=== PATIENT | female | born 1940 | race Caucasian/White ===

== ENCOUNTER 2021-03-13 21:09 | Inpatient (IN) | payer MEDICARE, OTHER, SELFPAY ==
--- NOTE | 2021-03-13 21:26 | XRR_ITS ---
PROCEDURE INFORMATION: Exam: XR Chest Exam date and time: 03/13/2021 9:26 PM Age: 80 years old Clinical indication: Other: Syncope TECHNIQUE: Imaging protocol: XR of the chest. Views: 1 view. COMPARISON: CR Chest 1 [place] [id number] 06/13/2018 7:35 AM FINDINGS: Lungs: Unremarkable. No consolidation. Pleural spaces: Unremarkable. No pleural effusion. No pneumothorax. Heart/Mediastinum: Unremarkable. No cardiomegaly. Vasculature: The aorta is tortuous and mildly calcified. Bones/joints: Unremarkable. XR/XR chest 1V portable [id number] IMPRESSION: No acute cardiopulmonary abnormality.
--- NOTE | 2021-03-13 21:26 | ECG_ITS ---
[facility] Test Date: 2021-03-13 Pat Name: Sandy Jordan Department: Room: Gender: Female Wrapping Clerk: : 1940 Requested By: Magan Lora Order Number: [id number] Kings MD: Thony Amor M.D. Measurements Intervals [place] Rate: 105 P: 258 WA: 88 QRS: 6 QRSD: 107 T: -76 QT: 356 QTc: 471 Interpretive Statements JUNCTIONAL TACHYCARDIA ST DEVIATION AND MODERATE T-WAVE ABNORMALITY, CONSIDER ANTERIOR ISCHEMIA [-0.1+ mV T-WAVE IN V3/V4] ST DEVIATION AND MODERATE T-WAVE ABNORMALITY, CONSIDER INFERIOR ISCHEMIA [-0.1+ mV T-WAVE IN II/aVF] Compared to ECG 06/13/2018 02:02:35 Junctional tachycardia now present Sinus rhythm no longer present Myocardial infarct finding no longer present T-wave abnormality still present Possible ischemia still present Electronically Signed On 03-15-2021 7:39:02 MAINTENANCE REPRESENTATIVE by Thony Amor M.D. [id number]
--- NOTE | 2021-03-13 21:26 | CTR_ITS ---
PROCEDURE INFORMATION: Exam: CT Head Without Contrast Exam date and time: 03/13/2021 9:26 PM Age: 80 years old Clinical indication: Syncope and collapse TECHNIQUE: Imaging protocol: Computed tomography of the head without contrast. Radiation optimization: All CT scans at this facility use at least one of these dose optimization techniques: automated exposure control; mA and/or kV adjustment per patient size (includes targeted exams where dose is matched to clinical indication); or iterative reconstruction. COMPARISON: [place] [facility] [place] [id number] 06/11/2018 8:53 AM RADIATION DOSE METRICS: Total DLP (mGy-cm): 855.23 FINDINGS: Brain: Age appropriate atrophy and small vessel ischemic change. No evidence of intracranial hemorrhage, mass effect, midline shift or extra-axial fluid collections. Midline structures are normal. Garces-white matter differentiation is normal. Cerebral ventricles: No ventriculomegaly. Paranasal sinuses: Visualized sinuses are unremarkable. No fluid levels. Mastoid air cells: Visualized mastoid air cells are well aerated. Vasculature: Carotid atherosclerotic calcification. Bones/joints: Unremarkable. No acute fracture. Soft tissues: There is mild posterior scalp swelling. CT/CT head wo con* [id number] IMPRESSION: No acute intracranial injury.
[2021-03-13 21:32] VITALS: BP 168/115; PULSE 100; RESP 16; TEMP 36.6; O2SAT 97; BMI 26.6
--- NOTE | 2021-03-13 22:06 | W.ED.SYNCOPE ---
HPI - Syncope General: Chief Complaint: Syncope Stated Complaint: SYNCOPE Time Seen by Provider: 03/13/21 21:18 Source: patient and EMS Mode of arrival: EMS Limitations: no limitations History of Present Illness: HPI narrative: 80-year-old female who is here with EMS she lives home alone family found her on the floor where she had fell unknown how long she had been down she states that she has been feeling increasingly weak and dehydrated has been having a hard time walking at home. Patient awake and alert able answer all my questions she is unsure if she hit her head she denies any pain from the fall. She had no fever denies any vomiting diarrhea denies any worsening proving factors. Associated symptoms: Deny abdominal pain, headache(s) or nausea Review of Systems Const: Reports: fatigue Eyes: Denies: blurry vision or eye discomfort ENMT: Denies: throat pain or dental pain Card: Reports: palpitations and syncope Resp: Denies: dyspnea GI: Denies: abdominal pain, nausea, vomiting or diarrhea : Denies: dysuria Musc: Reports: muscle weakness Skin/Breast: Denies: rash Neuro: Denies: headache(s) Psych: Denies: depression Galo/Lymph: Denies: easy bruising All/Imm: Denies: urticaria Physical Exam Const: COMMON NORMALS: no acute distress, patient oriented x3 and healthy appearing HENMT: COMMON NORMALS: normocephalic and atraumatic HEAD & SCALP: normocephalic and atraumatic Eye: COMMON NORMALS: Equal, round and reactive pupils present and EOMs intact bilaterally PUPIL: Yes Equal, round and reactive pupils present Neck/C-Spine: COMMON NORMALS: full ROM and supple Chest: COMMONS NORMALS: normal inspection of the chest and normal palpation of entire chest wall Resp: COMMON NORMALS: normal respiratory effort, No retractions, No use of accessory muscles and clear to auscultation bilaterally AUSCULTATION: clear to auscultation bilaterally Cardio: COMMON NORMALS: regular rhythm and No murmurs present (Cardio) RATE: tachycardic RHYTHM: regular rhythm GI: COMMON NORMALS: Normal to inspection, nondistended, normoactive bowel sounds present, Soft to palpation, non-tender and no masses PALPATION: Yes Soft to palpation Extremity: COMMON NORMALS: normal to inspection and full ROM Neuro: COMMON NORMALS: patient oriented x3, moves all extremities and no focal motor deficits Psych: COMMON NORMALS: mental status grossly normal, Normal thought process present and cooperative THOUGHT PROCESS: Normal thought process present Skin: COMMON NORMALS: no rashes or lesions noted and no wounds GENERAL SKIN EXAM: no rashes or lesions noted Course Vital Signs: Vital signs: Vital Signs Temperature 97.9 F 03/13/21 21:32 Pulse Rate 89 03/14/21 00:31 Respiratory Rate 16 03/13/21 21:32 Blood Pressure 195/130 03/14/21 00:31 Pulse Oximetry 99 03/14/21 00:31 MDM - Syncope MDM Narrative: Medical decision making narrative: Patient presents here with syncopal event patient is found here to be dehydrated likely causing her anion gap she also has acute cystitis likely causing her white count lactate here is normal blood pressure here has been normal as well she has no signs of septic shock will start on antibiotics I spoke to the hospitalist and will admit. Patient CT head is normal no signs of any major head injuries. She has no neck pain. Lab Data: Labs: Lab Results 03/13/21 03/13/21 03/13/21 21:13 21:13 21:13 WBC 17.6 10^3/uL H 10 ^3/uL (4.0-10.0) RBC 4.53 10^6/uL 10^6 /uL (4.1-5.3) Hgb 13.4 g/dL g/dL (11.5-15.3) Hct 40.2 % % (37.0-47.0) MCV 88.7 fl fl (81-99) MCH 29.6 pg pg (28.0-34.0) MCHC 33.3 g/dL g/dL (30.0-36.0) RDW 14.2 % % (12.1-15.1) Plt Count 303 10^3/cmm 10^3 /cmm (130-400) MPV 13.3 fL H fL (7.4-10.4) Neut % (Auto) 82.1 % % Lymph % (Auto) 13.5 % % [place] % (Auto) 3.2 % % Eos % (Auto) 0.1 % % Baso % (Auto) 0.6 % % Neut # (Auto) 14.42 10^3/uL H 1 0^3/uL (1.8-7.7) Lymph # (Auto) 2.4 10^3/uL 10^3/ uL (0.8-4.8) [place] # (Auto) 0.6 10^3/uL 10^3/ uL (0.2-0.9) Eos # (Auto) 0.0 10^3/uL 10^3/ uL (0.0-0.8) Baso # (Auto) 0.1 10^3/uL 10^3/ uL (0.0-0.1) Nucleated RBC % (a uto) 0 % % Nucleated RBCs # 0.0 /100WBC /100W BC PT INR Specimen Type Sample Site ABG pH ABG pCO2 ABG pO2 ABG HCO3 ABG Base Excess Elvin Test Hematocrit O2 Delivery Device Film Drying Machine Operator ID Sodium 140 mmol/L mmol/L (136-145) Potassium 3.5 mmol/L mmol/L (3.5-5.1) Chloride 101 mmol/L mmol/L (98-107) Carbon Dioxide 14 mmol/L L mmol/ L (22-29) Anion Gap 28.5 H (5-19) BUN 15 mg/dL mg/dL (8-23) Creatinine 0.9 mg/dL mg/dL (0.5-0.9) GFR Calculation Not Reportable Glucose 67 mg/dL mg/dL (65-115) Calculated Osmolal ity 289 mOsm/kg mOsm/ kg (285-295) Lactate Calcium 9.6 mg/dL mg/dL (8.5-10.5) Total Bilirubin 0.8 mg/dL mg/dL (0.15-1.2) AST 23 U/L U/L (0-32) ALT 12 U/L U/L (0-33) Alkaline Phosphata se 80 IU/L IU/L (35-105) Creatine Kinase 142 U/L U/L (26-192) Troponin T Baselin e 28 ng/L H ng/L (0-10) Troponin T 120 Min [place]ak Delta Troponin T Total Protein 7.0 g/dL g/dL (6.6-8.7) Albumin 4.7 g/dL g/dL (3.5-5.2) Globulin 2.3 g/dL g/dL (1.3-4.6) Urine Color Urine Appearance Urine pH Ur Specific Gravit y Urine Protein Urine Glucose (UA) Urine Ketones Urine Blood Urine Nitrate Urine Bilirubin Prot Sulfosalicyli c Acd Urine Urobilinogen Ur Leukocyte Anna ase Urine RBC Urine WBC Ur Squamous Epith Cells Amorphous Sediment Urine Bacteria 03/13/21 03/13/21 03/13/21 23:06 23:06 23:37 WBC RBC Hgb Hct MCV MCH MCHC RDW Plt Count MPV Neut % (Auto) Lymph % (Auto) [place] % (Auto) Eos % (Auto) Baso % (Auto) Neut # (Auto) Lymph # (Auto) [place] # (Auto) Eos # (Auto) Baso # (Auto) Nucleated RBC % (a uto) Nucleated RBCs # PT 15.70 SECONDS H S ECONDS (12.1-14.9) INR 1.22 H (0.8-1.2) Specimen Type Sample Site ABG pH ABG pCO2 ABG pO2 ABG HCO3 ABG Base Excess Elvin Test Hematocrit O2 Delivery Device Film Drying Machine Operator ID Sodium Potassium Chloride Carbon Dioxide Anion Gap BUN Creatinine GFR Calculation Glucose Calculated Osmolal ity Lactate Calcium Total Bilirubin AST ALT Alkaline Phosphata se Creatine Kinase Troponin T Baselin e Troponin T 120 Min [place] 36.23 ng/L H ng/L (0-10) Delta Troponin T 8.23 ABS# ABS# (0-10) Total Protein Albumin Globulin Urine Color Yellow (Yellow) Urine Appearance Cloudy (CLEAR) Urine pH 9 H (5-7) Ur Specific Gravit y 1.015 (1.005-1.030) Urine Protein 1+ H (Negative) Urine Glucose (UA) Norm (Normal) Urine Ketones 2+ H (Negative) Urine Blood 2+ H (Negative) Urine Nitrate Positive H (Negative) Urine Bilirubin Neg (Negative) Prot Sulfosalicyli c Acd Positive (Negative) Urine Urobilinogen Norm mg/dL mg/dL (Negative) Ur Leukocyte Anna ase 2+ H (Negative) Urine RBC 0-4 /hpf H /hpf (0-2) Urine WBC >100 /hpf H /hpf (0-5) Ur Squamous Epith Cells 0-4 /hpf H /hpf (0-5) Amorphous Sediment 3+ /hpf /hpf Urine Bacteria 4+ /hpf H /hpf (NONE) 03/13/21 03/14/21 23:41 00:45 WBC RBC Hgb Hct MCV MCH MCHC RDW Plt Count MPV Neut % (Auto) Lymph % (Auto) [place] % (Auto) Eos % (Auto) Baso % (Auto) Neut # (Auto) Lymph # (Auto) [place] # (Auto) Eos # (Auto) Baso # (Auto) Nucleated RBC % (a uto) Nucleated RBCs # PT INR Specimen Type Arterial Sample Site Radial, left ABG pH 7.53 H (7.35-7.45) ABG pCO2 19.7 mmHg L* mmHg (35-45) ABG pO2 97.9 mmHg mmHg (80.0-100.0) ABG HCO3 16.2 mmol/L L mmo l/L (22-26) ABG Base Excess -4.5 mmol/L L mmo l/L (-2.0-2.0) Elvin Test Pos Hematocrit 37.4 % % (37-47) O2 Delivery Device Room air Film Drying Machine Operator ID Buttr Sodium Potassium Chloride Carbon Dioxide Anion Gap BUN Creatinine GFR Calculation Glucose Calculated Osmolal ity Lactate 1.3 mmol/L mmol/L (0.5-2.2) Calcium Total Bilirubin AST ALT Alkaline Phosphata se Creatine Kinase Troponin T Baselin e Troponin T 120 Min [place] Delta Troponin T Total Protein Albumin Globulin Urine Color Urine Appearance Urine pH Ur Specific Gravit y Urine Protein Urine Glucose (UA) Urine Ketones Urine Blood Urine Nitrate Urine Bilirubin Prot Sulfosalicyli c Acd Urine Urobilinogen Ur Leukocyte Anna ase Urine RBC Urine WBC Ur Squamous Epith Cells Amorphous Sediment Urine Bacteria Imaging Data^: CT Head: Radiologist's impression: [address] [address] [address] Scan Report Signed Patient: Sandy Jordan Unit #: [id number] : 1940 Age/Sex: 80 / F ADM Date: 03/13/21 Loc: ER Room/Bed: Attending Dr: Ordering Provider/Ordering MD: Magan Lora MD Date of Service: 03/13/21 Procedure(s): CT head wo con* [id number] Accession Number(s): [id number] Report Number: [id number] PROCEDURE INFORMATION: Exam: CT Head Without Contrast Exam date and time: 03/13/2021 9:26 PM Age: 80 years old Clinical indication: Syncope and collapse TECHNIQUE: Imaging protocol: Computed tomography of the head without contrast. Radiation optimization: All CT scans at this facility use at least one of these dose optimization techniques: automated exposure control; mA and/or kV adjustment per patient size (includes targeted exams where dose is matched to clinical indication); or iterative reconstruction. COMPARISON: [place] [id number] 06/11/2018 8:53 AM RADIATION DOSE METRICS: Total DLP (mGy-cm): 855.23 FINDINGS: Brain: Age appropriate atrophy and small vessel ischemic change. No evidence of intracranial hemorrhage, mass effect, midline shift or extra-axial fluid collections. Midline structures are normal. Garces-white matter differentiation is normal. Cerebral ventricles: No ventriculomegaly. Paranasal sinuses: Visualized sinuses are unremarkable. No fluid levels. Mastoid air cells: Visualized mastoid air cells are well aerated. Vasculature: Carotid atherosclerotic calcification. Bones/joints: Unremarkable. No acute fracture. Soft tissues: There is mild posterior scalp swelling. CT/CT head wo con* [id number] IMPRESSION: No acute intracranial injury. Dictated By: Leonardo Jewell MD Signed By: Leonardo Jewell MD Signed Date/Time: 03/13/212210 DD/ 25 CXR: Attestation: I personally reviewed and interpreted this imaging study as follows: Radiologist's impression: [address] [address] XRay Report Signed Patient: Sandy Jordan Unit #: [id number] : 1940 Age/Sex: 80 / F ADM Date: 03/13/21 Loc: ER Room/Bed: Attending Dr: Ordering Provider/Ordering MD: Magan Lora MD Date of Service: 03/13/21 Procedure(s): XR chest 1V portable [id number] Accession Number(s): [id number] Report Number: [id number] PROCEDURE INFORMATION: Exam: XR Chest Exam date and time: 03/13/2021 9:26 PM Age: 80 years old Clinical indication: Other: Syncope TECHNIQUE: Imaging protocol: XR of the chest. Views: 1 view. COMPARISON: CR Chest 1 [place] [id number] 06/13/2018 7:35 AM FINDINGS: Lungs: Unremarkable. No consolidation. Pleural spaces: Unremarkable. No pleural effusion. No pneumothorax. Heart/Mediastinum: Unremarkable. No cardiomegaly. Vasculature: The aorta is tortuous and mildly calcified. Bones/joints: Unremarkable. XR/XR chest 1V portable [id number] IMPRESSION: No acute cardiopulmonary abnormality. Dictated By: Leonardo Jweell MD Signed By: Leonardo Jewell MD Signed Date/Time: 03/13/212212 DD/ 25 EKG Data^: EKG 1: Attestation: I personally reviewed and interpreted this EKG as follows: EKG interpretation date: 03/13/21 EKG interpretation time: 21:41 Interpretation: junctional tach hr [address] elevation slight depression v3-v5 qrs 107 qtc 417 Coding Level of Care Code ED Blood And Plasma Laboratory Assistant for Chg Fwd Exam Comprehensive
[2021-03-13 23:14] LABS: Basophils # 0.1 10^3/uL (0.0-0.1); Basophils % 0.6 %; Eosinophils % 0.1 %; Hematocrit 40.2 % (37.0-47.0); Hemoglobin 13.4 g/dL (11.5-15.3); Lymphocytes # 2.4 10^3/uL (0.8-4.8); Lymphocytes % 13.5 %; Mean Corpuscular HGB Conc 33.3 g/dL (30.0-36.0); Mean Corpuscular Hemoglobin 29.6 pg (28.0-34.0); Mean Corpuscular Volume 88.7 fl (81-99); Mean Platelet Volume 13.3 fL (7.4-10.4); Monocytes # 0.6 10^3/uL (0.2-0.9); Monocytes % 3.2 %; Neutrophils # 14.42 10^3/uL (1.8-7.7); Neutrophils % 82.1 %; Nucleated Red Blood Cells % 0 %; Platelet Count 303 10^3/cmm (130-400); Red Blood Count 4.53 10^6/uL (4.1-5.3); Red Cell Distribution Width 14.2 % (12.1-15.1); White Blood Count 17.6 10^3/uL (4.0-10.0)
[2021-03-13 23:20] LABS: Troponin(5th) Baseline 28 ng/L (0-10)
[2021-03-13 23:22] LABS: Alanine Aminotransferase 12 U/L (0-33); Albumin Level 4.7 g/dL (3.5-5.2); Alkaline Phosphatase 80 IU/L (35-105); Anion Gap 28.5 (5-19); Aspartate Amino Transferase 23 U/L (0-32); Blood Urea Nitrogen 15 mg/dL (8-23); Calcium 9.6 mg/dL (8.5-10.5); Carbon Dioxide 14 mmol/L (22-29); Chloride 101 mmol/L (98-107); Creatine Phosphokinase 142 U/L (26-192); Globulin 2.3 g/dL (1.3-4.6); Glucose 67 mg/dL (65-115); Osmolality Calculated 289 mOsm/kg (285-295); Potassium 3.5 mmol/L (3.5-5.1); Sodium 140 mmol/L (136-145); Total Bilirubin 0.8 mg/dL (0.15-1.2)
[2021-03-13 23:31] LABS: Slide Review Slide Review Perform
[2021-03-13 23:52] LABS: INR 1.22 (0.8-1.2)
[2021-03-13 23:57] LABS: Troponin 5 2HR 36.23 ng/L (0-10); Troponin 5 2HR Delta 8.23 ABS# (0-10)
[2021-03-13 23:58] LABS: Add Urine Culture? Yes; Add Urine Microscopic? YES; Amorphous Sediment Urine 3+ /hpf; Bacteria Urine 4+ /hpf; Bilirubin Urine Neg (Negative); Blood Urine 2+ (Negative); Glucose Urine UA Norm (Normal); Ketones Urine 2+ (Negative); Leukocyte Esterase Urine 2+ (Negative); Nitrate Urine Positive (Negative); Protein Urine 1+ (Negative); RBC Urine 0-4 /hpf (0-2); Specific Gravity, Urine 1.015 (1.005-1.030); Squamous Epithelial Cell Urine 0-4 /hpf (0-5); Sulfosalicylic Acid Urine Positive (Negative); Urine Appearance Cloudy (CLEAR); Urine Color Yellow (Yellow); Urobilinogen Urine Norm (Negative); WBC Urine >100 /hpf (0-5); pH Urine 9 (5-7)
[2021-03-14] VITALS (12 sets, daily range): BP systolic 143–197; BP diastolic 73–130; PULSE 69–102; RESP 18; TEMP 36.3–36.9; O2SAT 93–100
[2021-03-14 00:02] LABS: Lactate (Lactic Acid level) 1.3 mmol/L (0.5-2.2)
[2021-03-14] MEDS: sodium chloride 0.9% 1,000 ML 999 ML IV (00:28)
[2021-03-14] MEDS: cefTRIAXone 1,000 MG in sodium chloride 0.9% (plus) 50 ML 100 MG IV ×2 (00:28→07:50)
[2021-03-14 01:00] LABS: ABG PH Result 7.53 (7.35-7.45); Arterial Blood Gas Hematocrit 37.4 % (37-47); Base Excess ABG -4.5 mmol/L (-2.0-2.0); Blood Gas Allen Test Pos; Blood Gas Sample Site Radial, left; Blood Gas Sample Type Arterial; HCO3 ABG 16.2 mmol/L (22-26); Oxygen Device ROOM AIR; PO2 ABG 97.9 mmHg (80.0-100.0)
[2021-03-14 01:02] LABS: ABG PCO2 19.7 mmHg (35-45)
[2021-03-14] MEDS: LORazepam 2 mg/mL INJ 1 mL 0.5 MG IVP (03:20)
--- NOTE | 2021-03-14 03:26 | ECG_ITS ---
[facility] Test Date: 2021-03-14 Pat Name: Sandy Jordan Department: Room: 250 Gender: Female Field Manager: : 1940 Requested By: Magan Lora Order Number: [id number] Kings MD: Thony Amor M.D. Measurements Intervals [place] Rate: 89 P: MS: QRS: -12 QRSD: 100 T: -83 QT: 377 QTc: 461 Interpretive Statements ATRIAL FIBRILLATION ST DEVIATION AND MODERATE T-WAVE ABNORMALITY, CONSIDER ANTEROLATERAL ISCHEMIA [-0.1+ mV T-WAVE IN V3-V6] ST DEVIATION AND MODERATE T-WAVE ABNORMALITY, CONSIDER INFERIOR ISCHEMIA [-0.1+ mV T-WAVE IN II/aVF] Compared to ECG 03/13/2021 21:41:55 Junctional tachycardia no longer present T-wave abnormality still present Possible ischemia still present Electronically Signed On 03-15-2021 7:46:22 TACK CUTTER by Thony Amor M.D. [id number]
--- NOTE | 2021-03-14 04:16 | PM.HP ---
Providers/Chief Complaint Admitting Physician: Deneen Cerna MD Primary Care Provider: Lana Rodríguez DO Chief Complaint: SYNCOPE History of Present Illness With complaint ofGlshantanu Jordan is a 80 year old female who presented to the emergency room feeling well. It is a little challenging to get specific details but from what I can gather she has been having diarrhea for several days. She has been getting progressively weaker. Family found her on the floor today. It is not clear if she passed out and had loss of consciousness or hit her head. Unclear exactly how long she had been on the floor. She denies any vomiting but has been nauseated. No report of any fevers. She is not had any cough or upper respiratory symptoms until this evening in the ER she has developed a little tickle in her throat. No known sick contacts. Review of Systems General: Reports: 10 or more systems reviewed and unremarkable except in HPI and below and ROS unobtainable due to mental status (Not reliable not reliable) Const: Reports: fatigue; Denies: fever(s) or chills Eyes: Denies: change in vision ENMT: Denies: throat pain or nasal congestion Card: Denies: chest pain Resp: Reports: non-productive cough (Started in the emergency room from tickle in throat); Denies: dyspnea GI: Reports: nausea, diarrhea and GI cramping; Denies: hematochezia or melena : Reports: urinary frequency and urinary incontinence Musc: Denies: neck pain, back pain or extremity pain Skin/Breast: Denies: rash or pruritus Neuro: Reports: weakness in extremities, difficulty walking and frequent falls Psych: Reports: memory loss; Denies: depression Galo/Lymph: Denies: easy bruising or easy bleeding Medications/Allergies Home Medications Medication Instructions Recorded Confirmed Last Taken Type diphenhydramine HCl 25 mg PO 03/14/21 Unknown History diphenoxylate-atropine 1 tab PO QID PRN 03/14/21 03/14/21 Unknown History donepezil 10 mg PO DAILY 03/14/21 03/14/21 Unknown History loperamide [Imodium A-D] 2 mg PO Q4H PRN 03/14/21 03/14/21 Unknown History memantine 5 mg PO BID 03/14/21 03/14/21 Unknown History metoprolol tartrate 25 mg PO BID@03/14/21 03/14/21 Unknown History oxybutynin chloride 5 mg PO TID 03/14/21 03/14/21 Unknown History pantoprazole 40 mg PO DAILY 03/14/21 03/14/21 Unknown History sertraline 100 mg PO DAILY 03/14/21 03/14/21 Unknown History trazodone 50 mg PO BEDTIME 03/14/21 03/14/21 Unknown History Allergies Allergy/AdvReac Type Severity Reaction Status Date / Time No Known Allergies Allergy Verified 03/14/21 05:05 PFSH Acute PFSH: Medical History (Updated 03/14/21 @ 05:10 by Deneen Cerna MD) Chronic back pain Dementia Depression GERD (gastroesophageal reflux disease) History of benzodiazepine use History of drug overdose History of GI bleed History of narcotic use History of suicidal ideation Hypertension Osteoarthritis Polymyalgia rheumatica Surgical History (Updated 03/14/21 @ 04:30 by Deneen Cerna MD) History of abdominal surgery for gastric or duodenal ulcer History of breast biopsy History of hysterectomy Family History (Updated 03/14/21 @ 04:36 by Deneen Cerna MD) Other Cancer Social History (Updated 03/14/21 @ 04:37 by Deneen Cerna MD) Smoking and tobacco status: never smoked Alcohol intake: never Substance/Drug Use: never Lives independently: No Household members: family Female Reproductive History: : 3 Para: 3 Vitals/I&O/Wt Last Vital Signs Temp 97.9 F 03/13/21 21:32 Pulse 94 03/14/21 04:00 Resp 16 03/13/21 21:32 BP 146/110 03/14/21 04:00 Pulse Ox 96 03/14/21 04:00 03/13/21 03/13/21 03/14/21 14:59 22:59 06:59 Intake Total 1050 / 1050 Balance 1050 / 1050 Weight last 48 hrs Weight 81.647 kg Physical Exam Narrative: EXAM NARRATIVE: Constitutional: But able to provide some details of history, looks unwell HEENT: Normocephalic, extraocular movements intact, dry mucous membranes Neck: Supple Respiratory: Clear to auscultation bilaterally without any rales rhonchi or wheezes Cardiovascular: Regular rate and rhythm Abdomen: Soft, nontender, nondistended : Rausch catheter in place, normal external genitalia Extremities: Extremities are doughy, particularly at the feet, does not look like she ambulates much at baseline, no warmth, erythema or large areas of bruising noted Skin: Dry, decreased turgor, scattered minor ecchymoses and sores, skin is pale Neuro: Speech clear, oriented to person and place but not able to provide consistent information about the situation, face is symmetric although she keeps her jaw clenched tight, moves all extremities though generally weak, muscle wasting noted Psych: Flat affect Urinary Catheter Management^: Rausch: Cath Placed During This Visit: yes Urinary Catheter Date of Insertion: 03/13/21 Urinary Catheter Time of Insertion: 23:47 Data : 03/13/21 21:13 03/13/21 21:13 Other Labs: Laboratory Results WBC 17.6 10^3/uL (4.0-10.0) H 03/13/21 21:13 RBC 4.53 10^6/uL (4.1-5.3) 03/13/21 21:13 Hgb 13.4 g/dL (11.5-15.3) 03/13/21 21:13 Hct 40.2 % (37.0-47.0) 03/13/21 21:13 MCV 88.7 fl (81-99) 03/13/21 21:13 MCH 29.6 pg (28.0-34.0) 03/13/21 21:13 MCHC 33.3 g/dL (30.0-36.0) 03/13/21 21:13 RDW 14.2 % (12.1-15.1) 03/13/21 21:13 Plt Count 303 10^3/cmm (130-400) 03/13/21 21:13 MPV 13.3 fL (7.4-10.4) H 03/13/21 21:13 Neut % (Auto) 82.1 % 03/13/21 21:13 Lymph % (Auto) 13.5 % 03/13/21 21:13 [place] % (Auto) 3.2 % 03/13/21 21:13 Eos % (Auto) 0.1 % 03/13/21 21:13 Baso % (Auto) 0.6 % 03/13/21 21:13 Neut # (Auto) 14.42 10^3/uL (1.8-7.7) H 03/13/21 21:13 Lymph # (Auto) 2.4 10^3/uL (0.8-4.8) 03/13/21 21:13 [place] # (Auto) 0.6 10^3/uL (0.2-0.9) 03/13/21 21:13 Eos # (Auto) 0.0 10^3/uL (0.0-0.8) 03/13/21 21:13 Baso # (Auto) 0.1 10^3/uL (0.0-0.1) 03/13/21 21:13 Nucleated RBC % (auto) 0 % 03/13/21 21:13 Nucleated RBCs # 0.0 /100WBC 03/13/21 21:13 PT 15.70 SECONDS (12.1-14.9) H 03/13/21 23:06 INR 1.22 (0.8-1.2) H 03/13/21 23:06 Specimen Type Arterial 03/14/21 00:45 Sample Site Radial, left 03/14/21 00:45 ABG pH 7.53 (7.35-7.45) H 03/14/21 00:45 ABG pCO2 19.7 mmHg (35-45) L* 03/14/21 00:45 ABG pO2 97.9 mmHg (80.0-100.0) 03/14/21 00:45 ABG HCO3 16.2 mmol/L (22-26) L 03/14/21 00:45 ABG Base Excess -4.5 mmol/L (-2.0-2.0) L 03/14/21 00:45 Elvin Test Pos 03/14/21 00:45 Hematocrit 37.4 % (37-47) 03/14/21 00:45 O2 Delivery Device Room air 03/14/21 00:45 [employer] Division Chair ID Buttr 03/14/21 00:45 Sodium 140 mmol/L (136-145) 03/13/21 21:13 Potassium 3.5 mmol/L (3.5-5.1) 03/13/21 21:13 Chloride 101 mmol/L (98-107) 03/13/21 21:13 Carbon Dioxide 14 mmol/L (22-29) L 03/13/21 21:13 Anion Gap 28.5 (5-19) H 03/13/21 21:13 BUN 15 mg/dL (8-23) 03/13/21 21:13 Creatinine 0.9 mg/dL (0.5-0.9) 03/13/21 21:13 GFR Calculation Not Reportable 03/13/21 21:13 Glucose 67 mg/dL (65-115) 03/13/21 21:13 Calculated Osmolality 289 mOsm/kg (285-295) 03/13/21 21:13 Lactate 1.3 mmol/L (0.5-2.2) 03/13/21 23:41 Calcium 9.6 mg/dL (8.5-10.5) 03/13/21 21:13 Total Bilirubin 0.8 mg/dL (0.15-1.2) 03/13/21 21:13 AST 23 U/L (0-32) 03/13/21 21:13 ALT 12 U/L (0-33) 03/13/21 21:13 Alkaline Phosphatase 80 IU/L (35-105) 03/13/21 21:13 Creatine Kinase 142 U/L (26-192) 03/13/21 21:13 Troponin T Baseline 28 ng/L (0-10) H 03/13/21 21:13 Troponin T 120 Minute 36.23 ng/L (0-10) H 03/13/21 23:06 Delta Troponin T 8.23 ABS# (0-10) 03/13/21 23:06 Troponin T Hi Sens 6Hr 40.67 ng/L (0-10) H 03/14/21 03:56 Troponin T Hi Sens 6Hr Delta 12.67 ng/L (0-12) H* 03/14/21 03:56 Total Protein 7.0 g/dL (6.6-8.7) 03/13/21 21:13 Albumin 4.7 g/dL (3.5-5.2) 03/13/21 21:13 Globulin 2.3 g/dL (1.3-4.6) 03/13/21 21:13 Urine Color Yellow (Yellow) 03/13/21 23:37 Urine Appearance Cloudy (CLEAR) 03/13/21 23:37 Urine pH 9 (5-7) H 03/13/21 23:37 Ur Specific [place] 1.015 (1.005-1.030) 03/13/21 23:37 Urine Protein 1+ (Negative) H 03/13/21 23:37 Urine Glucose (UA) Norm (Normal) 03/13/21 23:37 Urine Ketones 2+ (Negative) H 03/13/21 23:37 Urine Blood 2+ (Negative) H 03/13/21 23:37 Urine Nitrate Positive (Negative) H 03/13/21 23:37 Urine Bilirubin Neg (Negative) 03/13/21 23:37 Prot Sulfosalicylic Acd Positive (Negative) 03/13/21 23:37 Urine Urobilinogen Norm mg/dL (Negative) 03/13/21 23:37 Ur Leukocyte Esterase 2+ (Negative) H 03/13/21 23:37 Urine RBC 0-4 /hpf (0-2) H 03/13/21 23:37 Urine WBC >100 /hpf (0-5) H 03/13/21 23:37 Ur Squamous Epith Cells 0-4 /hpf (0-5) H 03/13/21 23:37 Amorphous Sediment 3+ /hpf 03/13/21 23:37 Urine Bacteria 4+ /hpf (NONE) H 03/13/21 23:37 Impressions Chest X-Ray 03/13/21 21:26 IMPRESSION: No acute cardiopulmonary abnormality. Head CT 03/13/21 21:26 IMPRESSION: No acute intracranial injury. Micro: Microbiology 03/13/21 00:13 Blood Culture - Preliminary Blood SPECIMEN COLLECTED 03/13/21 11:56 Blood Culture - Preliminary Blood SPECIMEN COLLECTED A&P Assessment and plan (1) Weakness: Status: Acute (2) Urinary tract infection: Present on admission Status: Acute Qualifiers: Urinary tract infection type: acute cystitis Hematuria presence: without hematuria Qualified Code(s): N30.00 - Acute cystitis without hematuria (3) Diarrhea: Present on admission Status: Acute Qualifiers: Diarrhea type: presumed infectious Qualified Code(s): R19.7 - Diarrhea, unspecified (4) Dehydration: Status: Acute (5) Dementia: Status: Chronic Qualifiers: Dementia type: unspecified type Dementia behavioral disturbance: with behavioral disturbance Qualified Code(s): F03.91 - Unspecified dementia with behavioral disturbance (6) Hypertension: Status: Chronic Qualifiers: Hypertension type: primary hypertension Qualified Code(s): I10 - Essential (primary) hypertension (7) Depression: Status: Chronic Qualifiers: Depression Type: major depressive disorder Major depression recurrence: recurrent Active/Remission status: remission status unspecified Qualified Code(s): F33.9 - Major depressive disorder, recurrent, unspecified Additional A&P Information Metabolic acidosis with respiratory alkalosis Observation admission IV fluids Rocephin Follow-up pending culture Lactobacillus Stool for C. difficile if diarrhea recurs Blood cultures are pending Recheck laboratory studies and white count Cardiac enzymes started in the emergency room Continue home medications except for the antidiarrheals, will do a lower dose of trazodone and Benadryl One-to-one sitter for patient safety given attempts to get up out of bed and confusion and known fall at home Fall precautions Supportive care otherwise Currently anticipate disposition back home Plans discussed with patient is much as she could follow and she was given an opportunity to ask questions CODE STATUS status full code, not able to definitively confirm with patient/patient family presently; will need to confirm with family Attestations Medical Necessity Statement*: Currently anticipated stay less than 2 for patient presenting after being found on the floor. She reports several days of diarrhea, clinically looks dehydrated and has urinary tract infection and abnormal labs consistent with such. Receiving IV fluids and IV antibiotics, cultures pending. Coding Level of Care Code Acute Sustainability Specialist for [facility] Fwd Diagnoses Weakness R53.1 Urinary tract infection N30.00 Urinary tract infection type: acute cystitis Hematuria presence: without hematuria Diarrhea R19.7 Diarrhea type: presumed infectious Dehydration E86.0 Dementia F03.91 Dementia type: unspecified type Dementia behavioral disturbance: with behavioral disturbance Hypertension I10 Hypertension type: primary hypertension Depression F33.9 Depression Type: major depressive disorder Major depression recurrence: recurrent Active/Remission status: remission status unspecified
[2021-03-14 04:20] LABS: Troponin 5 6HR 40.67 ng/L (0-10)
[2021-03-14 04:22] LABS: Troponin 5 6HR Delta 12.67 ng/L (0-12)
[2021-03-14 06:58] LABS: Basophils # 0.1 10^3/uL (0.0-0.1); Basophils % 0.6 %; Eosinophils % 0.1 %; Lymphocytes # 1.5 10^3/uL (0.8-4.8); Lymphocytes % 13.9 %; Mean Corpuscular HGB Conc 33.3 g/dL (30.0-36.0); Mean Corpuscular Hemoglobin 29.6 pg (28.0-34.0); Mean Corpuscular Volume 88.9 fl (81-99); Mean Platelet Volume 12.4 fL (7.4-10.4); Monocytes # 0.3 10^3/uL (0.2-0.9); Monocytes % 2.9 %; Nucleated Red Blood Cells % 0 %; Platelet Count 285 10^3/cmm (130-400); Red Blood Count 4.05 10^6/uL (4.1-5.3); Red Cell Distribution Width 14.3 % (12.1-15.1); White Blood Count 10.9 10^3/uL (4.0-10.0)
[2021-03-14 07:14] LABS: Blood Urea Nitrogen 15 mg/dL (8-23); Calcium 8.6 mg/dL (8.5-10.5); Carbon Dioxide 16 mmol/L (22-29); Chloride 104 mmol/L (98-107); Glucose 82 mg/dL (65-115); Magnesium 1.7 mg/dL (1.7-2.3); Osmolality Calculated 290 mOsm/kg (285-295); Phosphorus 2.5 mg/dL (2.5-4.5); Sodium 140 mmol/L (136-145)
[2021-03-14 07:32] LABS: Anion Gap 22.7 (5-19); Potassium 2.7 mmol/L (3.5-5.1)
--- NOTE | 2021-03-14 07:33 | PC.NURSE ---
Lab calling with critical value; Potassium 2.7. Dr. Granados and Marcie RN advised
[2021-03-14 07:48] LABS: ABG PCO2 18.3 mmHg (35-45); ABG PH Result 7.54 (7.35-7.45); Arterial Blood Gas Hematocrit 35.7 % (37-47); Blood Gas Allen Test Pos; Blood Gas Operator Identificat MONRO; Blood Gas Sample Site Radial, right; Blood Gas Sample Type Arterial; HCO3 ABG 15.5 mmol/L (22-26); Oxygen Device ROOM AIR; PO2 ABG 95.1 mmHg (80.0-100.0)
[2021-03-14] MEDS: enoxaparin 40 mg/0.4 mL Syringe SUBCUT (07:50)
[2021-03-14] MEDS: sodium chlor 0.9% + KCl 20 mEq 20 MEQ/1,000 ML BAG 100 MEQ IV ×2 (07:50→18:13)
[2021-03-14] MEDS: potassium chloride ER 20 mEq Tablet 40 MEQ PO (10:39)
[2021-03-14] MEDS: lidocaine 1% 5 ML in potassium chloride premix 100 ML 25 ML IV (10:39)
[2021-03-14] MEDS: metroNIDAZOLE 500 MG Tablet PO (10:40)
[2021-03-14] MEDS: pantoprazole DR 40 mg Tablet PO (10:40)
[2021-03-14] MEDS: memantine 5 mg tablet PO ×2 (10:40→18:11)
[2021-03-14] MEDS: sertraline 100 mg Tablet PO (10:40)
[2021-03-14] MEDS: lactobacillus 1 Tablet 1 TAB PO ×3 (10:40→21:40)
[2021-03-14] MEDS: oxybutynin 5 mg Tablet PO ×2 (10:40→21:40)
[2021-03-14] MEDS: docusate sodium 100 mg Capsule PO (10:40)
--- NOTE | 2021-03-14 14:25 | PM.PN ---
Subjective Subjective: Interval history: Patient was seen and examined this morning, she was complaining of her abdomen being sore. She was also feeling cold. Denied any nausea vomiting. Medications: Reviewed: Yes Vitals/I&O/Wt Last Vital Signs Temp 97.9 F 03/13/21 21:32 Pulse 92 03/14/21 08:00 Resp 16 03/13/21 21:32 BP 162/93 03/14/21 08:00 Pulse Ox 97 03/14/21 08:00 03/13/21 03/14/21 03/14/21 22:59 06:59 14:59 Intake Total 1050 / 1050 Balance 1050 / 1050 Weight last 48 hrs Weight 81.647 kg Physical Exam Const: COMMON NORMALS: patient oriented x3 HENMT: COMMON NORMALS: normocephalic and atraumatic HEAD & SCALP: normocephalic and atraumatic Resp: COMMON NORMALS: clear to auscultation bilaterally AUSCULTATION: clear to auscultation bilaterally Cardio: COMMON NORMALS: regular rate, regular rhythm, S1 normal heart sound present, S2 normal heart sound present, No gallops present (Cardio), No murmurs present (Cardio), No rub (Cardio) and Peripheral pulses 2+ throughout RATE: regular rate RHYTHM: regular rhythm HEART SOUNDS: S1 normal heart sound present and S2 normal heart sound present PERIPHERAL PULSES: Peripheral pulses 2+ throughout GI: COMMON NORMALS: Normal to inspection, nondistended, normoactive bowel sounds present, Soft to palpation, non-tender, No hepatosplenomegaly present and no masses AUSCULTATION: Yes normoactive bowel sounds PALPATION: Yes Soft to palpation and Yes No hepatosplenomegaly present RECTAL EXAM: deferred Extremity: COMMON NORMALS: no clubbing, cyanosis or edema and no pedal edema Neuro: COMMON NORMALS: patient oriented x3 Urinary Catheter Management^: Rausch: Cath Placed During This Visit: yes Reason for Continuing Indwelling Catheter: Accurate Measurement of Urinary Output in Critically Ill Patients Urinary Catheter Date of Insertion: 03/13/21 Urinary Catheter Time of Insertion: 23:47 Data : 03/14/21 06:49 03/14/21 06:49 Micro: Microbiology 03/14/21 04:34 Enteric Pathogens (PCR) - Final Stool Routine Collection C.difficile Toxin B Gene (PCR) - Final 03/13/21 00:13 Blood Culture - Preliminary Blood SPECIMEN COLLECTED 03/13/21 11:56 Blood Culture - Preliminary Blood SPECIMEN COLLECTED A&P Assessment and plan (1) Diarrhea: Status: Acute Qualifiers: Diarrhea type: presumed infectious Qualified Code(s): R19.7 - Diarrhea, unspecified (2) Weakness: Status: Acute (3) Hypokalemia: Status: Acute (4) Urinary tract infection: Present on admission Status: Acute Qualifiers: Urinary tract infection type: acute cystitis Hematuria presence: without hematuria Qualified Code(s): N30.00 - Acute cystitis without hematuria (5) Dehydration: Status: Acute (6) Dementia: Status: Chronic Qualifiers: Dementia type: unspecified type Dementia behavioral disturbance: with behavioral disturbance Qualified Code(s): F03.91 - Unspecified dementia with behavioral disturbance (7) Hypertension: Status: Chronic Qualifiers: Hypertension type: primary hypertension Qualified Code(s): I10 - Essential (primary) hypertension (8) Depression: Status: Chronic Qualifiers: Depression Type: major depressive disorder Major depression recurrence: recurrent Active/Remission status: remission status unspecified Qualified Code(s): F33.9 - Major depressive disorder, recurrent, unspecified Additional A&P Information 80-year-old female presented with generalized weakness, diarrhea as well as being found on the floor by the family, she is not aware of how she landed on the floor. CT head without contrast: No acute intracranial pathology. X-ray chest: No infiltrate, effusion EKG : Junctional tachycardia ABG: pH 7.54, PCO2 18, PO2 95, FiO2 21% Follow 2D echo Monitor EKG Orthostatic vital signs Troponin trend has been negative Fall precaution #C. difficile diarrhea: Stool study positive for C. difficile Stool enteric pathogen by PCR negative Blood culture On vancomycin p.o. 125 every 6 hours daily for 7 days #Severe hypokalemia: Likely secondary to severe diarrhea. Monitor and replace serum potassium. #Metabolic acidosis with respiratory alkalosis. #Elevated troponin: Likely Type II MA: Secondary demand ischemia. Follow 2D echo #UTI: Follow urine culture Continue ceftriaxone Code status: full code Attestations Medical Necessity Statement*: Patient is to be in hospital for management of C. difficile diarrhea, severe electrolyte imbalance, UTI. Coding Level of Care Code Acute Linux Administrator for [facility] Fw Diagnoses Diarrhea R19.7 Diarrhea type: presumed infectious Weakness R53.1 Hypokalemia E87.6 Urinary tract infection N30.00 Urinary tract infection type: acute cystitis Hematuria presence: without hematuria Dehydration E86.0 Dementia F03.91 Dementia type: unspecified type Dementia behavioral disturbance: with behavioral disturbance Hypertension I10 Hypertension type: primary hypertension Depression F33.9 Depression Type: major depressive disorder Major depression recurrence: recurrent Active/Remission status: remission status unspecified
--- NOTE | 2021-03-14 14:38 | ECG_ITS ---
[facility] Test Date: 2021-03-14 Pat Name: Sandy Jordan Department: Room: 279 Gender: Female Personal Care Aid: : 1940 Requested By: Mckay Kraft Order Number: [id number] Kings MD: Thony Amor M.D. Measurements Intervals [place] Rate: 85 P: IL: QRS: -4 QRSD: 91 T: -81 QT: 377 QTc: 450 Interpretive Statements ATRIAL FIBRILLATION ST DEVIATION AND MODERATE T-WAVE ABNORMALITY, CONSIDER LATERAL ISCHEMIA [-0.1+ mV T-WAVE IN I/aVL/V5/V6] ST DEVIATION AND MODERATE T-WAVE ABNORMALITY, CONSIDER INFERIOR ISCHEMIA [-0.1+ mV T-WAVE IN II/aVF] Compared to ECG 03/14/2021 05:48:35 No significant changes Electronically Signed On 03-15-2021 7:44:52 [employer] by Thony Amor M.D. [id number]
[2021-03-14 16:51] LABS: Blood Urea Nitrogen 14 mg/dL (8-23); Calcium 8.1 mg/dL (8.5-10.5); Carbon Dioxide 16 mmol/L (22-29); Chloride 107 mmol/L (98-107); Glucose 89 mg/dL (65-115); Osmolality Calculated 282 mOsm/kg (285-295); Sodium 136 mmol/L (136-145)
[2021-03-14 16:56] LABS: Anion Gap 16.5 (5-19); Potassium 3.5 mmol/L (3.5-5.1)
[2021-03-14] MEDS: donepezil 5 MG Tablet PO (21:39)
[2021-03-14] MEDS: trazodone 50 mg Tablet 25 MG PO (21:40)
[2021-03-14] MEDS: metoprolol tartrate 25 mg Tablet PO (21:40)
[2021-03-15 03:35] VITALS: BP 183/83; PULSE 58; RESP 18; TEMP 36.8; O2SAT 98
[2021-03-15 03:38] LABS: Basophils # 0.1 10^3/uL (0.0-0.1); Basophils % 1.1 %; Eosinophils # 0.1 10^3/uL (0.0-0.8); Eosinophils % 1.3 %; Hematocrit 32.3 % (37.0-47.0); Hemoglobin 10.7 g/dL (11.5-15.3); Lymphocytes # 1.8 10^3/uL (0.8-4.8); Mean Corpuscular HGB Conc 33.1 g/dL (30.0-36.0); Mean Corpuscular Hemoglobin 29.7 pg (28.0-34.0); Mean Corpuscular Volume 89.7 fl (81-99); Mean Platelet Volume 11.9 fL (7.4-10.4); Monocytes # 0.4 10^3/uL (0.2-0.9); Monocytes % 5.2 %; Neutrophils % 66.3 %; Nucleated Red Blood Cells % 0 %; Platelet Count 226 10^3/cmm (130-400); Red Cell Distribution Width 14.6 % (12.1-15.1); White Blood Count 7.1 10^3/uL (4.0-10.0)
[2021-03-15 03:58] LABS: Anion Gap 15.4 (5-19); Blood Urea Nitrogen 10 mg/dL (8-23); Calcium 7.9 mg/dL (8.5-10.5); Carbon Dioxide 20 mmol/L (22-29); Chloride 108 mmol/L (98-107); Glucose 91 mg/dL (65-115); Osmolality Calculated 289 mOsm/kg (285-295); Potassium 3.4 mmol/L (3.5-5.1); Sodium 140 mmol/L (136-145)
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
[2021-03-15] MEDS: haloperidol inj 5 mg/mL INJ 1 mL IM (05:47)
[2021-03-15] MEDS: sodium chlor 0.9% + KCl 20 mEq 20 MEQ/1,000 ML BAG 100 MEQ IV (05:55)
--- NOTE | 2021-03-15 06:00 | USCV_ITS ---
Sandy Jordan Age: 80 Gender: F : 1940 Exam Date: 03/15/2021 14:13 Ordering Phys: Mckay Kraft MD Technologist: Temi Navarrete Exam Location: [facility] [place] Indication: Unwitnessed fall BP: 183 / 83 HR: 66 Rhythm: Sinus Technical Quality: Fair MEASUREMENTS (Male / Female) Normal Values 2D ECHO LV Diastolic Diameter PLAX 4.5 cm 4.2 - 5.9 / 3.9 - 5.3 cm LV Systolic Diameter PLAX 3.1 cm LV Chamber Size 4.3 cm IVS Diastolic Thickness 1.5 cm 0.6 - 1.0 / 0.6 - 0.9 cm IVS Systolic Thickness 2.0 cm LVPW Diastolic Thickness 1.0 cm 0.6 - 1.0 / 0.6 - 0.9 cm LVPW Systolic Thickness 1.2 cm RV Chamber Size 3.1 cm LVOT Diameter 1.8 cm LV Ejection Fraction 2D Teich 58.0 % LV Ejection Fraction MOD 2C 64.0 % LV Ejection Fraction 2C AL 65.7 % LA Diameter 2.8 cm LA Width 3.0 cm LA Height 4.6 cm RA Width 2.5 cm RA Height 5.1 cm Aorta at Sinotubular Diameter 2.5 cm M-MODE LV Diastolic Diameter MM 5.4 cm 4.2 - 5.9 / 3.9 - 5.3 cm LV Systolic Diameter MM 4.2 cm LV Ejection Fraction MM Teich 45.6 % IVS Diastolic Thickness MM 1.2 cm 0.6 - 1.0 / 0.6 - 0.9 cm IVS Systolic Thickness MM 1.2 cm LVPW Diastolic Thickness MM 1.3 cm 0.6 - 1.0 / 0.6 - 0.9 cm LVPW Systolic Thickness MM 1.5 cm RV Diastolic Diameter MM 2.5 cm Aortic Annulus Diameter 3.4 cm LA Ao Ratio MM 0.9 MV E Point Septal Separation 0.6 cm DOPPLER AV Peak Velocity 154.0 cm/s LVOT Peak Velocity 91.0 cm/s AV Area Cont Eq vti 1.5 cm squared AV Area Cont Eq pk 1.6 cm squared MV Area PHT 4.4 cm squared Mitral E to A Ratio 0.8 MV E' Velocity 36.0 cm/s Mitral E to MV E' Ratio 8.0 Mitral E to LV E' Lateral Ratio 11.9 Mitral E to LV E' Septal Ratio 6.1 TR Peak Velocity 230.3 cm/s TR Peak Gradient 21.2 mmHg TV Peak E Velocity 55.0 cm/s Right Atrial Pressure 3.0 mmHg Pulmonary Artery Systolic Pressu 24.2 mmHg FINDINGS Left Ventricle Normal left ventricular size and systolic function, EF 57 %. No regional wall motion abnormalities. Right Ventricle The right ventricle is normal in size and function. Right Atrium The right atrium is normal in size. Left Atrium The left atrium is normal in size. Mitral Valve Thickened mitral valve. Mild mitral annular calcification. Moderate mitral valve regurgitation. Aortic Valve Thickened aortic valve. Tricuspid Valve Mild tricuspid valve regurgitation. Pulmonic Valve Pulmonic valve not well visualized. Pericardium Normal pericardium without effusion. Aorta Normal ascending aorta dimension. CONCLUSIONS Normal left ventricular size and systolic function, EF 57 %. No regional wall motion abnormalities. Thickened mitral valve. Mild mitral annular calcification. Moderate mitral valve regurgitation. Thickened aortic valve. Mild tricuspid valve regurgitation. Estimated pulmonary artery peak systolic pressure of 24 mmHg. There is no pericardial effusion. There are no intracardiac masses. Comparison with the previous study is difficult because of the difference in the technical quality from 05/19/2018-probably no significant change. Dr Sanjana Chun MD [facility] (Electronically Signed) Final Date: 15 March 2021 17:02 S
[2021-03-15] MEDS: enoxaparin 40 mg/0.4 mL Syringe SUBCUT (06:04)
--- NOTE | 2021-03-15 06:21 | PC.NURSE ---
Nurse, Charge Nurse, Sitter, ORNAMENT STITCHER, and security picked patient off floor and placed her back in bed and IM Haldol was administered. PT continued to curse staff but did not attempt getting out of bed. IM haldol effective and pt is resting in bed calmly.
[2021-03-15 07:44] VITALS: BP 187/79; PULSE 66; RESP 17; TEMP 36.7; O2SAT 97
[2021-03-15] MEDS: cefTRIAXone 1,000 MG in sodium chloride 0.9% (plus) 50 ML 100 MG IV (08:03)
[2021-03-15] MEDS: oxybutynin 5 mg Tablet PO ×2 (10:29→22:07)
[2021-03-15] MEDS: lactobacillus 1 Tablet 1 TAB PO ×4 (10:29→22:06)
[2021-03-15] MEDS: metoprolol tartrate 25 mg Tablet PO ×2 (10:29→22:09)
[2021-03-15] MEDS: potassium chloride ER 20 mEq Tablet 40 MEQ PO (10:30)
[2021-03-15] MEDS: docusate sodium 100 mg Capsule PO ×2 (10:30→17:42)
[2021-03-15] MEDS: sertraline 100 mg Tablet PO (10:30)
[2021-03-15] MEDS: pantoprazole DR 40 mg Tablet PO (10:31)
[2021-03-15] MEDS: memantine 5 mg tablet PO ×2 (10:31→17:42)
[2021-03-15] MEDS: lidocaine 1% 5 ML in potassium chloride premix 100 ML 25 ML IV (11:30)
--- NOTE | 2021-03-15 11:38 | PC.CHAP ---
Pastoral Care Encounter/Spiritual Assessment Type of Contact [] Declined bridge welder visit [] Patient/Family/Request visit [] Outpatient visit [] Follow-up visit [] Physician referral [] Code/Alert [XX] Routine visit [] Staff referral [] Actively dying [] Patient sleeping [] Family support [] [] Out of room [] Palliative care [] [] Receiving care in room [] Pre-surgical visit [] Trauma [] Long length of stay [] ICU visit [XX] Other: isolation Relational/Emotional Strength [] Patient feels connected with others/family/visitors/staff [] Distress [] Loneliness/isolation [] Abandonment Spirituality of Patient [] Person of [place] [] Attends Mormonism of their [place] [] Believes in Prayer [] Reads Bible or Latter Day materials [] There are Spiritual issues to be addressed Courier Interventions [] Prayer [] Active listening [] Non-anxious presence [] Spiritual/emotional support [] Crisis/trauma care [] Spiritual counseling [] Bereavement support [] Provided bereavement packet [] Provided Bible/devotional materials [] Provided toy/stuffed animal, coloring book to patient or family member [] Provided Communion [] Anointing/[employer] [] Salvation [] Completed spiritual assessment [] Other: Impact on Illness or Injury [] Angry [] Fearful [] Anxious [] Often cries [] Exhaustion [] Unable to work [] Unable to attend uatsdin [] Unable to walk/stand [] Unable to read [] Unable to drive [] Unable to eat/drink [] Unable to sleep [] Unable to be with family [] Patient intubated [] Other: Summary Time spent with patient
[2021-03-15 11:45] VITALS: BP 182/75; PULSE 58; RESP 18; TEMP 36.6; O2SAT 96
[2021-03-15 16:00] VITALS: BP 151/88; PULSE 63; RESP 18; TEMP 36.5; O2SAT 96
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
[2021-03-15 19:59] VITALS: BP 122/75; PULSE 64; RESP 20; TEMP 36.8; O2SAT 95
[2021-03-15] MEDS: donepezil 5 MG Tablet PO (22:06)
[2021-03-15] MEDS: trazodone 50 mg Tablet 25 MG PO (22:07)
--- NOTE | 2021-03-15 22:31 | P.PN_ITS ---
Subjective Subjective: Interval history: Patient was seen and examined this morning, she had a last rough night,she was extremely agitated last night,fighting with nursing staff. Had to be given haldol as well as ativan. Medications: Reviewed: Yes Vitals/I&O/Wt Last Vital Signs Temp 98.2 F 03/15/21 19:59 Pulse 64 03/15/21 19:59 Resp 20 H 03/15/21 19:59 BP 122/75 03/15/21 19:59 Pulse Ox 95 03/15/21 19:59 03/15/21 03/15/21 03/15/21 06:59 14:59 22:59 Intake Total 1003.333 / 2242.333 290 / 290 105 / 395 Balance 1003.333 / 2042.333 290 / 290 105 / 395 Physical Exam Const: COMMON NORMALS: patient oriented x3 HENMT: COMMON NORMALS: normocephalic and atraumatic HEAD & SCALP: normocephalic and atraumatic Resp: COMMON NORMALS: clear to auscultation bilaterally AUSCULTATION: clear to auscultation bilaterally Cardio: COMMON NORMALS: regular rate, regular rhythm, S1 normal heart sound present, S2 normal heart sound present, No gallops present (Cardio), No murmurs present (Cardio), No rub (Cardio) and Peripheral pulses 2+ throughout RATE: regular rate RHYTHM: regular rhythm HEART SOUNDS: S1 normal heart sound present and S2 normal heart sound present PERIPHERAL PULSES: Peripheral pulses 2+ throughout GI: COMMON NORMALS: Normal to inspection, nondistended, normoactive bowel sounds present, Soft to palpation, non-tender, No hepatosplenomegaly present and no masses AUSCULTATION: Yes normoactive bowel sounds PALPATION: Yes Soft to palpation and Yes No hepatosplenomegaly present RECTAL EXAM: deferred Extremity: COMMON NORMALS: no clubbing, cyanosis or edema and no pedal edema Neuro: COMMON NORMALS: patient oriented x3 Urinary Catheter Management^: Rausch: Cath Placed During This Visit: yes Reason for Continuing Indwelling Catheter: Accurate Measurement of Urinary Output in Critically Ill Patients Urinary Catheter Date of Insertion: 03/13/21 Urinary Catheter Time of Insertion: 23:47 Data : 03/15/21 03:29 03/15/21 03:29 Micro: Microbiology 03/13/21 23:37 Urine Culture - Preliminary Urine,Clean Catch Gram Negative Rods 03/13/21 00:13 Blood Culture - Preliminary Blood NEGATIVE TO DATE 03/13/21 11:56 Blood Culture - Preliminary Blood NEGATIVE TO DATE A&P Assessment and plan (1) Diarrhea: Status: Acute Qualifiers: Diarrhea type: presumed infectious Qualified Code(s): R19.7 - Diarrhea, unspecified (2) Weakness: Status: Acute (3) Hypokalemia: Status: Acute (4) Urinary tract infection: Present on admission Status: Acute Qualifiers: Urinary tract infection type: acute cystitis Hematuria presence: without hematuria Qualified Code(s): N30.00 - Acute cystitis without hematuria (5) Dehydration: Status: Acute (6) Dementia: Status: Chronic Qualifiers: Dementia type: unspecified type Dementia behavioral disturbance: with behavioral disturbance Qualified Code(s): F03.91 - Unspecified dementia with behavioral disturbance (7) Hypertension: Status: Chronic Qualifiers: Hypertension type: primary hypertension Qualified Code(s): I10 - Essential (primary) hypertension (8) Depression: Status: Chronic Qualifiers: Depression Type: major depressive disorder Major depression recurrence: recurrent Active/Remission status: remission status unspecified Qualified Code(s): F33.9 - Major depressive disorder, recurrent, unspecified Additional A&P Information 80-year-old female presented with generalized weakness, diarrhea as well as being found on the floor by the family, she is not aware of how she landed on the floor. CT head without contrast: No acute intracranial pathology. X-ray chest: No infiltrate, effusion EKG : Junctional tachycardia ABG: pH 7.54, PCO2 18, PO2 95, FiO2 21% Follow 2D echo Monitor EKG Orthostatic vital signs Troponin trend has been negative Fall precaution #C. difficile diarrhea: Stool study positive for C. difficile Stool enteric pathogen by PCR negative Blood culture On vancomycin p.o. 125 every 6 hours daily for 7 days #Severe hypokalemia: Likely secondary to severe diarrhea. Monitor and replace serum potassium. #Metabolic acidosis with respiratory alkalosis. #Elevated troponin: Likely Type II [place]: Secondary demand ischemia. Follow 2D echo #UTI: Follow urine culture Continue ceftriaxone Code status: full code Attestations Medical Necessity Statement*: Patient is safe to be discharge home with home health program.Family wants patient to go to assisted living facility. Coding Level of Care Code Acute [place] Management Professor for [facility] Fwd Diagnoses Diarrhea R19.7 Diarrhea type: presumed infectious Weakness R53.1 Hypokalemia E87.6 Urinary tract infection N30.00 Urinary tract infection type: acute cystitis Hematuria presence: without hematuria Dehydration E86.0 Dementia F03.91 Dementia type: unspecified type Dementia behavioral disturbance: with behavioral disturbance Hypertension I10 Hypertension type: primary hypertension Depression F33.9 Depression Type: major depressive disorder Major depression recurrence: recurrent Active/Remission status: remission status unspecified
[2021-03-15 23:30] VITALS: BP 155/91; PULSE 60; RESP 17; TEMP 36.8; O2SAT 96
[2021-03-16] VITALS (7 sets, daily range): BP systolic 120–162; BP diastolic 78–95; PULSE 58–83; RESP 15–20; TEMP 36.6–37.1; O2SAT 92–98
[2021-03-16] MEDS: cefTRIAXone 1,000 MG in sodium chloride 0.9% (plus) 50 ML 100 MG IV (07:26)
[2021-03-16] MEDS: enoxaparin 40 mg/0.4 mL Syringe SUBCUT (07:27)
[2021-03-16] MEDS: lactobacillus 1 Tablet 1 TAB PO ×4 (08:26→20:02)
[2021-03-16] MEDS: sertraline 100 mg Tablet PO (08:26)
[2021-03-16] MEDS: memantine 5 mg tablet PO ×2 (08:26→17:30)
[2021-03-16] MEDS: oxybutynin 5 mg Tablet PO ×3 (08:26→20:01)
[2021-03-16] MEDS: docusate sodium 100 mg Capsule PO ×2 (08:26→17:30)
[2021-03-16] MEDS: potassium chloride ER 20 mEq Tablet 40 MEQ PO (08:26)
[2021-03-16] MEDS: pantoprazole DR 40 mg Tablet PO (08:26)
--- NOTE | 2021-03-16 10:42 | PC.NURSE ---
Held metoprolol this am due to heart rate being 58.
[2021-03-16] MEDS: metoprolol tartrate 25 mg Tablet PO ×2 (11:27→20:02)
--- NOTE | 2021-03-16 18:06 | P.PN_ITS ---
Subjective Subjective: Interval history: Patient was seen and examined this morning, no acute events overnight, WBC count has normalized, diarrhea has resolved, Medications: Reviewed: Yes Vitals/I&O/Wt Last Vital Signs Temp 98.7 F 03/16/21 16:00 Pulse 67 03/16/21 16:00 Resp 16 03/16/21 16:00 BP 162/95 03/16/21 16:00 Pulse Ox 97 03/16/21 16:00 03/16/21 03/16/21 03/16/21 06:59 14:59 22:59 Intake Total 2210 / 2210 Balance 2210 / 2210 Physical Exam Const: COMMON NORMALS: patient oriented x3 HENMT: COMMON NORMALS: normocephalic and atraumatic HEAD & SCALP: normocephalic and atraumatic Resp: COMMON NORMALS: clear to auscultation bilaterally AUSCULTATION: clear to auscultation bilaterally Cardio: COMMON NORMALS: regular rate, regular rhythm, S1 normal heart sound pr esent, S2 normal heart sound present, No gallops present (Cardio), No murmurs present (Cardio), No rub (Cardio) and Peripheral pulses 2+ throughout RATE: regular rate RHYTHM: regular rhythm HEART SOUNDS: S1 normal heart sound present and S2 normal heart sound present PERIPHERAL PULSES: Peripheral pulses 2+ throughout GI: COMMON NORMALS: Normal to inspection, nondistended, normoactive bowel sounds present, Soft to palpation, non-tender, No hepatosplenomegaly present and no masses AUSCULTATION: Yes normoactive bowel sounds PALPATION: Yes Soft to palpation and Yes No hepatosplenomegaly present RECTAL EXAM: deferred Extremity: COMMON NORMALS: no clubbing, cyanosis or edema and no pedal edema Neuro: COMMON NORMALS: patient oriented x3 Urinary Catheter Management^: Rausch: Cath Placed During This Visit: yes Reason for Continuing Indwelling Catheter: Accurate Measurement of Urinary Output in Critically Ill Patients Urinary Catheter Date of Insertion: 03/13/21 Urinary Catheter Time of Insertion: 23:47 Data : 03/15/21 03:29 03/15/21 03:29 Micro: Microbiology 03/13/21 23:37 Urine Culture - Final Urine,Clean Catch Proteus mirabilis A&P Assessment and plan (1) Diarrhea: Status: Acute Qualifiers: Diarrhea type: presumed infectious Qualified Code(s): R19.7 - Diarrhea, unspecified (2) Weakness: Status: Acute (3) Hypokalemia: Status: Acute (4) Urinary tract infection: Present on admission Status: Acute Qualifiers: Urinary tract infection type: acute cystitis Hematuria presence: without hematuria Qualified Code(s): N30.00 - Acute cystitis without hematuria (5) Dehydration: Status: Acute (6) Dementia: Status: Chronic Qualifiers: Dementia type: unspecified type Dementia behavioral disturbance: with behavioral disturbance Qualified Code(s): F03.91 - Unspecified dementia with behavioral disturbance (7) Hypertension: Status: Chronic Qualifiers: Hypertension type: primary hypertension Qualified Code(s): I10 - Essential (primary) hypertension (8) Depression: Status: Chronic Qualifiers: Depression Type: major depressive disorder Major depression recurrence: recurrent Active/Remission status: remission status unspecified Qualified Code(s): F33.9 - Major depressive disorder, recurrent, unspecified Additional A&P Information 80-year-old female presented with generalized weakness, diarrhea as well as ginger ng found on the floor by the family, she is not aware of how she landed on the floor. CT head without contrast: No acute intracranial pathology. X-ray chest: No infiltrate, effusion EKG : Junctional tachycardia ABG: pH 7.54, PCO2 18, PO2 95, FiO2 21% Follow 2D echo Monitor EKG Orthostatic vital signs Troponin trend has been negative Fall precaution #C. difficile diarrhea: Stool study positive for C. difficile Stool enteric pathogen by PCR negative Blood culture On vancomycin p.o. 125 every 6 hours daily for 7 days #Severe hypokalemia: Likely secondary to severe diarrhea. Monitor and replace serum potassium. #Metabolic acidosis with respiratory alkalosis. #Elevated troponin: Likely Type II [place]: Secondary demand ischemia. Denies any chest pain, shortness of breath. Follow 2D echo:Normal left ventricular size and systolic function, EF 57 %. No regional wall motion abnormalities.No gross valvular abnormality. #UTI: urine culture:P.Mirabilis. Sensitive to Cef Continue ceftriaxone for 3-5 days Code status: full code Attestations Medical Necessity Statement*: Patient stays alone, and will not likely be able to take care of herself, will need placement to assisted living. Coding Level of Care Code Acute Repairer Finished Metal for [facility] Fwd Diagnoses Diarrhea R19.7 Diarrhea type: presumed infectious Weakness R53.1 Hypokalemia E87.6 Urinary tract infection N30.00 Urinary tract infection type: acute cystitis Hematuria presence: without hematuria Dehydration E86.0 Dementia F03.91 Dementia type: unspecified type Dementia behavioral disturbance: with behavioral disturbance Hypertension I10 Hypertension type: primary hypertension Depression F33.9 Depression Type: major depressive disorder Major depression recurrence: recurrent Active/Remission status: remission status unspecified
[2021-03-16] MEDS: lidocaine 1% 5 ML in potassium chloride premix 100 ML 25 ML IV (18:30)
[2021-03-16] MEDS: trazodone 50 mg Tablet 25 MG PO (20:01)
[2021-03-16] MEDS: donepezil 5 MG Tablet PO (20:03)
[2021-03-17] VITALS (8 sets, daily range): BP systolic 138–177; BP diastolic 77–92; PULSE 57–76; RESP 16–18; TEMP 36.6–36.9; O2SAT 92–96
--- NOTE | 2021-03-17 06:06 | PC.NURSE ---
Patient A&Ox3, resting comfortably in bed. No change in condition.
[2021-03-17] MEDS: potassium chloride ER 20 mEq Tablet 40 MEQ PO (09:10)
[2021-03-17] MEDS: oxybutynin 5 mg Tablet PO ×3 (09:10→22:33)
[2021-03-17] MEDS: lactobacillus 1 Tablet 1 TAB PO ×4 (09:10→22:33)
[2021-03-17] MEDS: docusate sodium 100 mg Capsule PO ×2 (09:10→18:49)
[2021-03-17] MEDS: pantoprazole DR 40 mg Tablet PO (09:10)
[2021-03-17] MEDS: memantine 5 mg tablet PO ×2 (09:10→18:49)
[2021-03-17] MEDS: enoxaparin 40 mg/0.4 mL Syringe SUBCUT (09:11)
[2021-03-17] MEDS: sertraline 100 mg Tablet PO (09:14)
--- NOTE | 2021-03-17 09:20 | PC.NURSE ---
Held metoprolol until later due to pulse rate at 57
[2021-03-17] MEDS: cefTRIAXone 1,000 MG in sodium chloride 0.9% (plus) 50 ML 100 MG IV (09:31)
[2021-03-17] MEDS: metoprolol tartrate 25 mg Tablet PO ×2 (10:20→22:34)
--- NOTE | 2021-03-17 14:06 | PC.SOCIAL ---
IMM Update pg 2 of IMM updated and reviewed w/ patient. Copy provided.
--- NOTE | 2021-03-17 18:52 | PM.PN ---
Subjective Subjective: Interval history: Patient was seen this morning, she is alert to person, to place, to time, follows all commands, she denies any shortness of breath, no fevers overnight, no nausea, no vomiting, no choking episodes, currently on room air, afebrile Vitals/I&O/Wt Last Vital Signs Temp 98.2 F 03/17/21 16:00 Pulse 62 03/17/21 16:00 Resp 16 03/17/21 16:00 BP 170/77 03/17/21 16:00 Pulse Ox 95 03/17/21 16:00 03/17/21 03/17/21 03/17/21 06:59 14:59 22:59 Intake Total 530 / 530 980 / 1510 Balance 530 / 530 980 / 1510 Physical Exam Const: COMMON NORMALS: no acute distress and patient oriented x3 Resp: COMMON NORMALS: normal respiratory effort, No retractions, No use of accessory muscles and clear to auscultation bilaterally AUSCULTATION: clear to auscultation bilaterally Cardio: COMMON NORMALS: regular rate, regular rhythm, S1 normal heart sound present and S2 normal heart sound present RATE: regular rate RHYTHM: regular rhythm HEART SOUNDS: S1 normal heart sound present and S2 normal heart sound present GI: COMMON NORMALS: Normal to inspection, nondistended, normoactive bowel sounds present, Soft to palpation and non-tender PALPATION: Yes Soft to palpation Extremity: COMMON NORMALS: no pedal edema Neuro: COMMON NORMALS: patient oriented x3 Psych: COMMON NORMALS: mental status grossly normal Urinary Catheter Management^: Rausch: Cath Placed During This Visit: yes Reason for Continuing Indwelling Catheter: Accurate Measurement of Urinary Output in Critically Ill Patients Urinary Catheter Date of Insertion: 03/13/21 Urinary Catheter Time of Insertion: 23:47 Data : 03/15/21 03:29 03/15/21 03:29 A&P Assessment and plan (1) Diarrhea: Status: Acute Qualifiers: Diarrhea type: presumed infectious Qualified Code(s): R19.7 - Diarrhea, unspecified (2) Weakness: Status: Acute (3) Hypokalemia: Status: Acute (4) Urinary tract infection: Present on admission Status: Acute Qualifiers: Urinary tract infection type: acute cystitis Hematuria presence: without hematuria Qualified Code(s): N30.00 - Acute cystitis without hematuria (5) Dehydration: Status: Acute (6) Dementia: Status: Chronic Qualifiers: Dementia type: unspecified type Dementia behavioral disturbance: with behavioral disturbance Qualified Code(s): F03.91 - Unspecified dementia with behavioral disturbance (7) Hypertension: Status: Chronic Qualifiers: Hypertension type: primary hypertension Qualified Code(s): I10 - Essential (primary) hypertension (8) Depression: Status: Chronic Qualifiers: Depression Type: major depressive disorder Major depression recurrence: recurrent Active/Remission status: remission status unspecified Qualified Code(s): F33.9 - Major depressive disorder, recurrent, unspecified Additional A&P Information 80-year-old female presented with generalized weakness, diarrhea as well as being found on the floor by the family, she is not aware of how she landed on the floor. CT head without contrast: No acute intracranial pathology. X-ray chest: No infiltrate, effusion EKG : Junctional tachycardia ABG: pH 7.54, PCO2 18, PO2 95, FiO2 21% Follow 2D echo Normal left ventricular size and systolic function, EF 57 %. No regional wall motion abnormalities. Thickened mitral valve. Mild mitral annular calcification. Moderate mitral valve regurgitation. Thickened aortic valve. Mild tricuspid valve regurgitation. Estimated pulmonary artery peak systolic pressure of 24 mmHg. There is no pericardial effusion. There are no intracardiac masses. Comparison with the previous study is difficult because of the difference in the technical quality from 05/19/2018-probably no significant change. Monitor EKG Orthostatic vital signs Troponin trend has been negative Fall precaution #C. difficile diarrhea: Stool study positive for C. difficile Stool enteric pathogen by PCR negative Blood culture On vancomycin p.o. 125 every 6 hours daily for 7 days #Severe hypokalemia: Likely secondary to severe diarrhea. Monitor and replace serum potassium. #Metabolic acidosis with respiratory alkalosis. Continue to monitor #Elevated troponin: Likely Type II [place]: Secondary demand ischemia. Denies any chest pain, shortness of breath. Follow 2D echo:Normal left ventricular size and systolic function, EF 57 %. No regional wall motion abnormalities.No gross valvular abnormality. #UTI: urine culture:P.Mirabilis. Sensitive to Cef Continue ceftriaxone for 3-5 days Code status: full code Attestations Medical Necessity Statement*: Patient requires hospitalization for C. difficile colitis, UTI, deconditioning Coding Level of Care Code Acute [employer] Glazing Operator for [facility] Fwd Diagnoses Diarrhea R19.7 Diarrhea type: presumed infectious Weakness R53.1 Hypokalemia E87.6 Urinary tract infection N30.00 Urinary tract infection type: acute cystitis Hematuria presence: without hematuria Dehydration E86.0 Dementia F03.91 Dementia type: unspecified type Dementia behavioral disturbance: with behavioral disturbance Hypertension I10 Hypertension type: primary hypertension Depression F33.9 Depression Type: major depressive disorder Major depression recurrence: recurrent Active/Remission status: remission status unspecified
[2021-03-17] MEDS: donepezil 5 MG Tablet PO (22:33)
[2021-03-17] MEDS: trazodone 50 mg Tablet 25 MG PO (22:34)
[2021-03-18 02:22] LABS: Basophils # 0.1 10^3/uL (0.0-0.1); Basophils % 0.7 %; Eosinophils # 0.1 10^3/uL (0.0-0.8); Eosinophils % 1.3 %; Lymphocytes % 29.3 %; Mean Corpuscular HGB Conc 32.4 g/dL (30.0-36.0); Mean Corpuscular Hemoglobin 29.7 pg (28.0-34.0); Mean Corpuscular Volume 91.9 fl (81-99); Mean Platelet Volume 12.5 fL (7.4-10.4); Monocytes # 0.4 10^3/uL (0.2-0.9); Monocytes % 5.2 %; Neutrophils # 4.34 10^3/uL (1.8-7.7); Neutrophils % 63.2 %; Nucleated Red Blood Cells % 0 %; Platelet Count 203 10^3/cmm (130-400); Red Cell Distribution Width 14.4 % (12.1-15.1); White Blood Count 6.9 10^3/uL (4.0-10.0)
[2021-03-18 02:47] LABS: Alanine Aminotransferase 12 U/L (0-33); Albumin Level 3.4 g/dL (3.5-5.2); Alkaline Phosphatase 78 IU/L (35-105); Anion Gap 15.5 (5-19); Aspartate Amino Transferase 17 U/L (0-32); Blood Urea Nitrogen 13 mg/dL (8-23); Calcium 8.6 mg/dL (8.5-10.5); Carbon Dioxide 20 mmol/L (22-29); Chloride 106 mmol/L (98-107); Globulin 2.3 g/dL (1.3-4.6); Glucose 109 mg/dL (65-115); Magnesium 1.5 mg/dL (1.7-2.3); Osmolality Calculated 285 mOsm/kg (285-295); Phosphorus 3.5 mg/dL (2.5-4.5); Potassium 4.5 mmol/L (3.5-5.1); Sodium 137 mmol/L (136-145); Total Bilirubin 0.2 mg/dL (0.15-1.2); Total Protein 5.7 g/dL (6.6-8.7)
[2021-03-18] MEDS: hyDRALAzine 10 mg Tablet PO ×3 (06:04→19:59)
[2021-03-18] MEDS: enoxaparin 40 mg/0.4 mL Syringe SUBCUT (06:05)
[2021-03-18 08:00] VITALS: BP 175/87; PULSE 60; RESP 16; TEMP 36.8; O2SAT 95
--- NOTE | 2021-03-18 08:01 | PC.NURSE ---
PATIENT IV WAS FOUND IN FLOOR, CATHETER INTACT, WHEN EDUCATING PATIENT ON NEED TO HAVE IV ACCESS PATIENT STATED LATER . THIS NURSE RE-APPROACHED PATIENT AT CLOSE TO END OF SHIFT AND ASKED TO REPLACE CATHETER AND PATIENT ONCE AGAIN STATED LATER . THIS NURSE NOTIFIED DAY SHIFT NURSE TAKING PATIENT WELL CHARGE NURSE.
[2021-03-18] MEDS: memantine 5 mg tablet PO ×2 (09:24→17:40)
[2021-03-18] MEDS: sertraline 100 mg Tablet PO (09:24)
[2021-03-18] MEDS: oxybutynin 5 mg Tablet PO ×3 (09:24→19:58)
[2021-03-18] MEDS: pantoprazole DR 40 mg Tablet PO (09:24)
[2021-03-18] MEDS: lactobacillus 1 Tablet 1 TAB PO ×4 (09:24→19:59)
[2021-03-18] MEDS: docusate sodium 100 mg Capsule PO ×2 (09:24→17:40)
[2021-03-18] MEDS: metoprolol tartrate 25 mg Tablet PO ×2 (09:33→19:58)
[2021-03-18] MEDS: potassium chloride ER 20 mEq Tablet 40 MEQ PO (09:33)
[2021-03-18] MEDS: cefTRIAXone 1,000 MG in sodium chloride 0.9% (plus) 50 ML 100 MG IV (09:34)
--- NOTE | 2021-03-18 09:35 | PC.NURSE ---
reported to the nurse
[2021-03-18 12:00] VITALS: BP 163/98; PULSE 60; RESP 16; TEMP 36.8; O2SAT 96
--- NOTE | 2021-03-18 13:12 | PM.PN ---
Subjective Subjective: Interval history: He was seen this morning, she tells me that she did not get a lot of she had an uneventful night, no diarrhea, no abdominal pain, no choking, no coughing, no fevers she is awaiting fpc placement Vitals/I&O/Wt Last Vital Signs Temp 98.2 F 03/18/21 12:00 Pulse 60 03/18/21 12:00 Resp 16 03/18/21 12:00 BP 163/98 03/18/21 12:00 Pulse Ox 96 03/18/21 12:00 03/17/21 03/18/21 03/18/21 22:59 06:59 14:59 Intake Total 1030 / 1560 240 / 1800 480 / 480 Balance 1030 / 1560 240 / 1800 480 / 480 Physical Exam Const: COMMON NORMALS: no acute distress and patient oriented x3 Resp: COMMON NORMALS: normal respiratory effort, No retractions, No use of accessory muscles and clear to auscultation bilaterally AUSCULTATION: clear to auscultation bilaterally Cardio: COMMON NORMALS: regular rate, regular rhythm, S1 normal heart sound present and S2 normal heart sound present RATE: regular rate RHYTHM: regular rhythm HEART SOUNDS: S1 normal heart sound present and S2 normal heart sound present GI: COMMON NORMALS: Normal to inspection, nondistended, normoactive bowel sounds present, Soft to palpation and non-tender PALPATION: Yes Soft to palpation Extremity: COMMON NORMALS: no pedal edema Neuro: COMMON NORMALS: patient oriented x3 Psych: COMMON NORMALS: mental status grossly normal Urinary Catheter Management^: Rausch: Cath Placed During This Visit: yes Reason for Continuing Indwelling Catheter: Accurate Measurement of Urinary Output in Critically Ill Patients Urinary Catheter Date of Insertion: 03/13/21 Urinary Catheter Time of Insertion: 23:47 Data : 03/18/21 02:08 03/18/21 02:08 A&P Assessment and plan (1) Diarrhea: Status: Acute Qualifiers: Diarrhea type: presumed infectious Qualified Code(s): R19.7 - Diarrhea, unspecified (2) Weakness: Status: Acute (3) Hypokalemia: Status: Acute (4) Urinary tract infection: Present on admission Status: Acute Qualifiers: Urinary tract infection type: acute cystitis Hematuria presence: without hematuria Qualified Code(s): N30.00 - Acute cystitis without hematuria (5) Dehydration: Status: Acute (6) Dementia: Status: Chronic Qualifiers: Dementia type: unspecified type Dementia behavioral disturbance: with behavioral disturbance Qualified Code(s): F03.91 - Unspecified dementia with behavioral disturbance (7) Hypertension: Status: Chronic Qualifiers: Hypertension type: primary hypertension Qualified Code(s): I10 - Essential (primary) hypertension (8) Depression: Status: Chronic Qualifiers: Depression Type: major depressive disorder Major depression recurrence: recurrent Active/Remission status: remission status unspecified Qualified Code(s): F33.9 - Major depressive disorder, recurrent, unspecified Additional A&P Information 80-year-old female presented with generalized weakness, diarrhea as well as being found on the floor by the family, she is not aware of how she landed on the floor. CT head without contrast: No acute intracranial pathology. X-ray chest: No infiltrate, effusion EKG : Junctional tachycardia ABG: pH 7.54, PCO2 18, PO2 95, FiO2 21% Follow 2D echo Normal left ventricular size and systolic function, EF 57 %. No regional wall motion abnormalities. Thickened mitral valve. Mild mitral annular calcification. Moderate mitral valve regurgitation. Thickened aortic valve. Mild tricuspid valve regurgitation. Estimated pulmonary artery peak systolic pressure of 24 mmHg. There is no pericardial effusion. There are no intracardiac masses. Comparison with the previous study is difficult because of the difference in the technical quality from 05/19/2018-probably no significant change. Troponin trend has been negative Fall precaution #C. difficile diarrhea: Stool study positive for C. difficile Stool enteric pathogen by PCR negative Blood culture negative On vancomycin p.o. 125 every 6 hours daily for 7 days #Severe hypokalemia: Likely secondary to severe diarrhea. Monitor and replace serum potassium. Hypomagnesemia, replace #Metabolic acidosis with respiratory alkalosis. Resolved, continue to monitor #Elevated troponin: Likely Type II [place]: Secondary demand ischemia. Denies any chest pain, shortness of breath. Follow 2D echo:Normal left ventricular size and systolic function, EF 57 %. No regional wall motion abnormalities.No gross valvular abnormality. #UTI: urine culture:P.Mirabilis. Sensitive to Cef Completed 3 days of ceftriaxone Code status: full code Attestations Medical Necessity Statement*: Patient requires hospitalization for C. difficile colitis, UTI, deconditioning, awaiting fpc placement Coding Level of Care Code Acute Sand Mixer for [facility] Diagnoses Diarrhea R19.7 Diarrhea type: presumed infectious Weakness R53.1 Hypokalemia E87.6 Urinary tract infection N30.00 Urinary tract infection type: acute cystitis Hematuria presence: without hematuria Dehydration E86.0 Dementia F03.91 Dementia type: unspecified type Dementia behavioral disturbance: with behavioral disturbance Hypertension I10 Hypertension type: primary hypertension Depression F33.9 Depression Type: major depressive disorder Major depression recurrence: recurrent Active/Remission status: remission status unspecified
[2021-03-18] MEDS: magnesium sulfate premix 2 GM/50 ML PIGGYBACK IV (14:30)
--- NOTE | 2021-03-18 14:31 | PC.NURSE ---
PT LOST IV ACCESS
[2021-03-18 14:39] LABS: Coronavirus Test Green County Not Detected
[2021-03-18 15:57] VITALS: BP 171/86; PULSE 64; RESP 18; TEMP 36.4; O2SAT 97
[2021-03-18] MEDS: donepezil 5 MG Tablet PO (19:59)
[2021-03-18] MEDS: trazodone 50 mg Tablet 25 MG PO (19:59)
[2021-03-18 20:00] VITALS: BP 173/99; PULSE 59; RESP 16; TEMP 36.8; O2SAT 97
--- NOTE | 2021-03-18 20:13 | PC.NURSE ---
i reported low pulse 60 to nurse
[2021-03-19] VITALS: BP 158/89; PULSE 58; RESP 16; TEMP 36.7; O2SAT 95
--- NOTE | 2021-03-19 01:03 | PC.NURSE ---
i reported low pulse 58 to nurse
[2021-03-19] MEDS: hyDRALAzine 10 mg Tablet PO ×2 (03:36→10:57)
[2021-03-19 04:00] VITALS: BP 148/83; PULSE 56; RESP 15; TEMP 36.7; O2SAT 96
--- NOTE | 2021-03-19 05:05 | PC.NURSE ---
i reported low pulse 56 to nurse
--- NOTE | 2021-03-19 05:17 | PC.NURSE ---
SHIFT SUMMARY Has rested well tonight. Is confused but very pleasant and cooperative. Incont of urine and bowels with only X1 small loose BM tonight. Has denied any pain or discomfort.
[2021-03-19] MEDS: enoxaparin 40 mg/0.4 mL Syringe SUBCUT (06:03)
[2021-03-19 07:53] LABS: Basophils # 0.1 10^3/uL (0.0-0.1); Basophils % 0.9 %; Eosinophils # 0.1 10^3/uL (0.0-0.8); Hematocrit 36.2 % (37.0-47.0); Hemoglobin 11.6 g/dL (11.5-15.3); Lymphocytes # 1.7 10^3/uL (0.8-4.8); Lymphocytes % 24.6 %; Mean Corpuscular Hemoglobin 29.5 pg (28.0-34.0); Mean Corpuscular Volume 92.1 fl (81-99); Mean Platelet Volume 12.4 fL (7.4-10.4); Monocytes # 0.4 10^3/uL (0.2-0.9); Monocytes % 6.1 %; Neutrophils # 4.59 10^3/uL (1.8-7.7); Neutrophils % 67.3 %; Nucleated Red Blood Cells % 0 %; Platelet Count 215 10^3/cmm (130-400); Red Blood Count 3.93 10^6/uL (4.1-5.3); Red Cell Distribution Width 14.2 % (12.1-15.1); White Blood Count 6.8 10^3/uL (4.0-10.0)
[2021-03-19 08:00] VITALS: BP 162/79; PULSE 50; RESP 16; TEMP 36.6; O2SAT 95
[2021-03-19 08:12] LABS: Alanine Aminotransferase 16 U/L (0-33); Albumin Level 3.7 g/dL (3.5-5.2); Alkaline Phosphatase 74 IU/L (35-105); Anion Gap 19.1 (5-19); Aspartate Amino Transferase 19 U/L (0-32); Blood Urea Nitrogen 15 mg/dL (8-23); Calcium 8.7 mg/dL (8.5-10.5); Carbon Dioxide 21 mmol/L (22-29); Chloride 104 mmol/L (98-107); Globulin 2.2 g/dL (1.3-4.6); Glucose 106 mg/dL (65-115); Osmolality Calculated 289 mOsm/kg (285-295); Phosphorus 3.9 mg/dL (2.5-4.5); Potassium 5.1 mmol/L (3.5-5.1); Sodium 139 mmol/L (136-145); Total Bilirubin 0.2 mg/dL (0.15-1.2); Total Protein 5.9 g/dL (6.6-8.7)
[2021-03-19] MEDS: memantine 5 mg tablet PO (09:21)
[2021-03-19] MEDS: docusate sodium 100 mg Capsule PO (09:21)
[2021-03-19] MEDS: lactobacillus 1 Tablet 1 TAB PO ×2 (09:21→13:05)
[2021-03-19] MEDS: pantoprazole DR 40 mg Tablet PO (09:21)
[2021-03-19] MEDS: metoprolol tartrate 25 mg Tablet PO (09:21)
[2021-03-19] MEDS: oxybutynin 5 mg Tablet PO (09:22)
[2021-03-19] MEDS: sertraline 100 mg Tablet PO (09:22)
--- NOTE | 2021-03-19 11:49 | PM.DCS ---
Discharge Providers Date of Admission: 03/14/21 16:50 Date of Discharge: March 19, 2021 Attending Provider at Admission: Deneen Cerna MD Attending Provider at Discharge: London Nova MD Primary Care Provider: Lana Rodríguez DO Diagnoses at Discharge Discharge Diagnosis (1) Diarrhea: Status: Acute Qualifiers: Diarrhea type: presumed infectious Qualified Code(s): R19.7 - Diarrhea, unspecified (2) Weakness: Status: Acute (3) Hypokalemia: Status: Acute (4) Urinary tract infection: Status: Acute Qualifiers: Urinary tract infection type: acute cystitis Hematuria presence: without hematuria Qualified Code(s): N30.00 - Acute cystitis without hematuria (5) Dehydration: Status: Acute (6) Dementia: Status: Chronic Qualifiers: Dementia type: unspecified type Dementia behavioral disturbance: with behavioral disturbance Qualified Code(s): F03.91 - Unspecified dementia with behavioral disturbance (7) Hypertension: Status: Chronic Qualifiers: Hypertension type: primary hypertension Qualified Code(s): I10 - Essential (primary) hypertension (8) Depression: Status: Chronic Qualifiers: Depression Type: major depressive disorder Major depression recurrence: recurrent Active/Remission status: remission status unspecified Qualified Code(s): F33.9 - Major depressive disorder, recurrent, unspecified Reason for Visit Reason for Visit: [facility]NC[facility] Hospital Course Hospital Course This is a 80-year-old female with a past medical history of hypertension, dementia, hyperlipidemia, who presents [facility] due to fatigue and malaise Patient was admitted to [facility] for dehydration, hypokalemia, hypomagnesemia secondary to C. difficile colitis, received p.o. vancomycin, diarrhea improved, electrolyte levels improved. Discharged on 6 remaining days of p.o. vancomycin, skilled nursing was advised to recheck potassium magnesium levels in 72 hours. Patient also developed a Proteus Mirabella's UTI, finished 3 days of ceftriaxone as inpatient. Patient also had reported fall, CT head no acute intracranial pathology, chest x-ray no infiltrate, EKG junctional tachycardia, echocardiogram EF of 57% Patient also had elevated troponins during hospitalization, no chest pain complaints, likely type II NSTEMI, supply demand ischemia, from dehydration, EF as above, no regional wall motion abnormalities. Discharged on aspirin, statin Atrial fibrillation, unknown if new onset, rate controlled with metoprolol, no chest pain complaints, no palpitations complaints, continue metoprolol on discharge, does have a history of GI bleeds, anticoagulation relatively contraindicated, will discharge on aspirin 81 mg, have patient follow-up with cardiology as outpatient Physical Exam Const: COMMON NORMALS: no acute distress and patient oriented x3 Resp: COMMON NORMALS: normal respiratory effort, No retractions, No use of accessory muscles and clear to auscultation bilaterally AUSCULTATION: clear to auscultation bilaterally Cardio: COMMON NORMALS: regular rate, regular rhythm, S1 normal heart sound present and S2 normal heart sound present RATE: regular rate RHYTHM: regular rhythm HEART SOUNDS: S1 normal heart sound present and S2 normal heart sound present GI: COMMON NORMALS: Normal to inspection, nondistended, normoactive bowel sounds present, Soft to palpation and non-tender PALPATION: Yes Soft to palpation Extremity: COMMON NORMALS: no pedal edema Neuro: COMMON NORMALS: patient oriented x3 Psych: COMMON NORMALS: mental status grossly normal Urinary Catheter Management^: Rausch: Cath Placed During This Visit: yes Reason for Continuing Indwelling Catheter: Accurate Measurement of Urinary Output in Critically Ill Patients Urinary Catheter Date of Insertion: 03/13/21 Urinary Catheter Time of Insertion: 23:47 Discharge Data Data Completed and Pending: Completed Studies During Hospitalization Category Date Time Status CT head wo con* [id number] Urgent Cat Scan 03/13/21 21:26 Completed XR chest 1V all ble [id number] Stat Exams 03/13/21 21:26 Completed CV. echo complete * [id number] Routine Ultrasound 03/15/21 06:00 Completed Pending at discharge Category Date Time Status Complete Blood Co unt w/Auto AM LABS Lab 03/20/21 04:00 Ordered Comprehensive Met abolic Panel AM LA BS Lab 03/20/21 04:00 Ordered Magnesium AM LABS Lab 03/20/21 04:00 Ordered Phosphorus AM LAB S Lab 03/20/21 04:00 Ordered Labs from last 24 hours 03/19/21 03/19/21 03/17/21 07:42 07:42 14:30 WBC 6.8 RBC 3.93 L Hgb 11.6 Hct 36.2 L MCV 92.1 MCH 29.5 MCHC 32.0 RDW 14.2 Plt Count 215 MPV 12.4 H Neut % (Auto) 67.3 Lymph % (Auto) 24.6 [place] % (Auto) 6.1 Eos % (Auto) 1.0 Baso % (Auto) 0.9 Neut # (Auto) 4.59 Lymph # (Auto) 1.7 [place] # (Auto) 0.4 Eos # (Auto) 0.1 Baso # (Auto) 0.1 Nucleated RBC % (a uto) 0 Nucleated RBCs # 0.0 Sodium 139 Potassium 5.1 Chloride 104 Carbon Dioxide 21 L Anion Gap 19.1 H BUN 15 Creatinine 0.6 GFR Calculation Not Reportable Glucose 106 Calculated Osmolal ity 289 Calcium 8.7 Phosphorus 3.9 Magnesium 2.0 Total Bilirubin 0.2 AST 19 ALT 16 Alkaline Phosphata se 74 Total Protein 5.9 L Albumin 3.7 Globulin 2.2 Nasal/Oral COVID-1 9 PCR Not detected Vitals: Last Vital Signs Temp 97.9 F 03/19/21 08:00 Pulse 50 L 03/19/21 08:00 Resp 16 03/19/21 08:00 BP 162/79 03/19/21 08:00 Pulse Ox 95 03/19/21 08:00 Discharge Plan Discharge Patient Disposition: Xfer SNF Condition: Stable Prescriptions: New vancomycin 125 mg capsule 125 mg PO Q6H 6 Days Qty: 24 RF: 0 amlodipine [Norvasc] 10 mg tablet 10 mg PO DAILY 30 Days Qty: 30 RF: 0 docusate sodium 100 mg Capsule 100 mg PO BID 30 Days Qty: 60 RF: 0 hydralazine 10 mg Tablet 10 mg PO Q8H 30 Days Qty: 90 RF: 0 Continued Imodium A-D 2 mg Capsule 2 mg PO Q4H PRN (Reason: Diarrhea) RF: 0 donepezil 10 mg tablet 10 mg PO DAILY RF: 0 sertraline 100 mg tablet 100 mg PO DAILY RF: 0 pantoprazole 40 mg tablet,delayed release (DR/EC) 40 mg PO DAILY RF: 0 diphenhydramine HCl 25 mg Tablet 25 mg PO BEDTIME RF: 0 oxybutynin chloride 5 mg tablet 5 mg PO TID RF: 0 memantine 5 mg tablet 5 mg PO BID RF: 0 metoprolol tartrate 25 mg tablet 25 mg PO BID@ RF: 0 Changed trazodone 50 mg tablet 25 mg PO BEDTIME Qty: 0 RF: 0 Discontinued diphenoxylate-atropine 2.5-0.025 mg tablet 1 tab PO QID PRN (Reason: Diarrhea) RF: 0 Discharge Orders: Discharge Order (Routine); Ordered 03/19/21 Ordered By: London Nova Referrals: Deedee [Other] Lana Rodríguez DO [Primary Care Provider] - Discharge Diet: Cardiac Discharge Activity: Resume usual activity Activity Restrictions/Additional Instructions: -Continue to hydrate well -Recheck potassium and magnesium levels in 72 hours -Monitor blood pressure -Follow-up with primary care provider 1 week Discharge Attestations Time Spent in Discharge Care*: less than 30 min Quality Metrics Clinical Quality Measures During this hospital stay, did patient experience: None Coding Level of Care Code Acute [facility] note Diagnoses Diarrhea R19.7 Diarrhea type: presumed infectious Weakness R53.1 Hypokalemia E87.6 Urinary tract infection N30.00 Urinary tract infection type: acute cystitis Hematuria presence: without hematuria Dehydration E86.0 Dementia F03.91 Dementia type: unspecified type Dementia behavioral disturbance: with behavioral disturbance Hypertension I10 Hypertension type: primary hypertension Depression F33.9 Depression Type: major depressive disorder Major depression recurrence: recurrent Active/Remission status: remission status unspecified
[2021-03-19 11:54] VITALS: BP 144/78; PULSE 60; RESP 16; TEMP 36.7; O2SAT 94
--- NOTE | 2021-03-19 12:03 | PC.SOCIAL ---
IMM Update pg 2 of IMM updated and reviewed w/ patient. Copy provided.
[2021-03-19] MEDS: amlodipine 10 mg Tablet PO (13:05)
[2021-03-19 15:32] VITALS: BP 144/78; PULSE 60; RESP 16; TEMP 36.7; O2SAT 94
== END 2021-03-19 14:45 | disposition home or self-care (01) | DRG 371 ==
LOC: ER 03-14 00:53 → MEDSURG 03-14 03:15 → ER IP 03-14 07:48 → MEDSURG 03-14 13:15
PROVIDERS: Internal Medicine; Admitting Provider Hospitalist; Emergency Provider Emergency Medicine; Family Provider Family Medicine; PCP Family Medicine; Visit Provider Family Medicine
DX: A04.72 Enterocolitis due to Clostridium difficile, not specified as recurrent (principal); I21.A1 Myocardial infarction type 2; N30.00 Acute cystitis without hematuria; F03.91 Unspecified dementia, unspecified severity, with behavioral disturbance; F33.9 Major depressive disorder, recurrent, unspecified; E87.4 Mixed disorder of acid-base balance; E87.6 Hypokalemia; E83.42 Hypomagnesemia; E86.0 Dehydration; E78.5 Hyperlipidemia, unspecified; I48.91 Unspecified atrial fibrillation; I34.0 Nonrheumatic mitral (valve) insufficiency; I07.1 Rheumatic tricuspid insufficiency; I35.8 Other nonrheumatic aortic valve disorders; I10 Essential (primary) hypertension; M35.3 Polymyalgia rheumatica; K21.9 Gastro-esophageal reflux disease without esophagitis; Z87.19 Personal history of other diseases of the digestive system; Z91.51 Personal history of suicidal behavior; Z91.81 History of falling
CPT/HCPCS: 36415; 36600; 51702; 70450; 71045; 80048; 80053; 81001; 82550; 82803; 83605; 83735; 84100; 84484; 85025; 85610; 87040; 87077; 87086; 87186; 87493; 87506; 87635; 93005; 93306; 96365; 96366; 96367; 96372; 97110; 97116; 97161; 97165; 99285; G0378; J0696; J1630; J1650; J2060; J3370; J3475; J3480; J7030

== ENCOUNTER 2021-04-17 14:19 | Outpatient (CLI) | payer MEDICARE, OTHER, SELFPAY ==
[2021-04-17 14:47] LABS: Bilirubin Urine 1+ (Negative); Blood Urine 3+ (Negative); Glucose Urine UA Norm (Normal); Ketones Urine Negative (Negative); Nitrate Urine Positive (Negative); Protein Urine Trace (Negative); Urine Appearance Cloudy (CLEAR); Urine Color Yellow (Yellow); pH Urine 5 (5-7)
[2021-04-17 14:48] LABS: Add Urine Culture? No; Add Urine Microscopic? YES; Bacteria Urine 4+ /hpf; Leukocyte Esterase Urine 2+ (Negative); Urobilinogen Urine Norm (Negative); WBC Urine 25-40 /hpf (0-5)
== END 2021-04-17 14:20 | disposition home or self-care (01) ==
LOC: LAB 14:22
PROVIDERS: PCP Family Medicine; Visit Provider Family Medicine
DX: N39.0 Urinary tract infection, site not specified (principal)
CPT/HCPCS: 81001; 87077; 87086; 87186

== ENCOUNTER 2021-06-16 09:21 | Emergency (ER) | payer MEDICARE, OTHER, SELFPAY ==
[2021-06-16 09:23] VITALS: BP 181/84; PULSE 54; RESP 16; TEMP 35.7; O2SAT 96; BMI 24.3
[2021-06-16 09:29] VITALS: BP 181/84; PULSE 54; RESP 18; O2SAT 97
--- NOTE | 2021-06-16 09:31 | CT_ITS ---
WS: [id number] CT scan of the head, 06/16/2021 Clinical Data: fall Comparison: CT head, 03/13/2021. DLP: 854.[address] scans at [facility] use at least one of these dose optimization techniques: automated e xposure control; mA and/or kV adjustment per patient size (includes targeted exams where dose is matc hed to clinical indication); or iterative reconstruction. Findings: The ventricular system is modestly dilated without shift. No recent infarct or hemorrhage is seen. Th ere are no abnormal intracerebral masses. The cerebellum and brainstem are not remarkable. Bony windows of the skull and skull base show no fractures or erosions. The mastoid air cells, public relations intern al auditory canals, sella turcica and intraorbital contents are unremarkable. There is a small polyp or mucous cyst on the lateral aspect of the left maxillary sinus. CT/CT head wo con* [id number] Impression: 1. Mild cerebral atrophy. 2. No acute intracerebral abnormality.
--- NOTE | 2021-06-16 09:31 | XR_ITS ---
WS: [id number] Left shoulder, 3 views, 06/16/2021 Clinical Data: fall Comparison: None. Findings: There is a comminuted impacted fracture of the left humeral head and neck. No displacement is seen. The AC joint is normal. The adjacent left clavicle, left scapula and ribs are normal. The left lung i s unremarkable and the soft tissues are normal. XR/XR shoulder LT min 2V* [id number] Impression: Comminuted impacted fracture of the left humeral head and neck.
--- NOTE | 2021-06-16 09:31 | CT_ITS ---
WS: [id number] CT cervical spine. Additional two-dimensional coronal and sagittal reconstruction was performed. 06/16 Clinical Data: fall Comparison: None. DLP: 548.[address] scans at [facility] use at least one of these dose optimization techniques: automated e xposure control; mA and/or kV adjustment per patient size (includes targeted exams where dose is matc hed to clinical indication); or iterative reconstruction. Findings: No compression fractures are seen. There is disc space narrowing at C5-C6 and C6-C7 with minimal oste ophyte formation. The spinous processes are in good alignment. The odontoid is unremarkable. There is no prevertebral soft tissue swelling. The soft tissues of the cervical spine and the lung apices are not remarkable. C2-C3: No disc bulge, canal stenosis or foraminal stenosis is seen. C3-C4: There is minimal right osteophyte formation along with facet joint arthritis causing mild righ t foraminal stenosis. C4-C5: There is left facet joint arthritis causing left foraminal stenosis. C5-C6: There is posterior disc osteophyte impingement into the spinal canal and bilateral facet joint arthritis causing bilateral foraminal stenosis. C6-C7: There is minimal posterior disc osteophyte complex causing mild canal stenosis. C7-T1: No disc bulge, canal stenosis or foraminal stenosis is seen. CT/CT cervical spin wo con* [id number] Impression: 1. Negative for cervical spine fracture. 2. Degenerative disc narrowing at C5-C6 and C6-C7 with osteophyte formation. 3. Multilevel facet joint arthritis, mild canal stenosis and foraminal stenosis .
--- NOTE | 2021-06-16 09:31 | ED_ITS ---
HPI - Fall General: Chief Complaint: Fall Stated Complaint: FALL Time Seen by Provider: 06/16/21 09:23 Source: patient Mode of arrival: ambulatory Limitations: no limitations History of Present Illness: 80-year-old female presents emergency room with complaints of a fall. She is at assisted living and fell while in the shower restrained ago tub shower combination unit evidently she landed on her left shoulder and also struck her head possible loss consciousness. Patient has some mild dementia. She is not on any anticoagulants. She is in a left arm sling. She denies any chest or abdominal pain. MD complaint: fall Onset (ago): minute(s) Fall from: standing Fall witnessed: no Place fall occurred: [facility]dc/S[facility] (Assisted living) Loss of consciousness: Unsure Prolonged down time: no Symptoms prior to fall: none Context: tripped/slipped Location of injury: head and neck Location of injury - extremities: Left: shoulder Severity: severe Quality: sharp Associated symptoms-after fall: Reports headache(s) and neck pain; Denies abdominal pain, chest pain, confusion, difficulty walking, lightheadedness, numbness, short of breath, vertigo or weakness Review of Systems Const: Denies: fever(s), chills, body aches, change in appetite, fatigue or malaise ENMT: Denies: throat pain, ear or mastoid pain, nasal discharge or nasal congestion Card: Denies: chest pain or lightheadedness Resp: Denies: dyspnea, productive cough or non-productive cough GI: Denies: abdominal pain Musc: Reports: neck pain and extremity pain (Right shoulder upper arm) Skin/Breast: Denies: rash or pruritus Neuro: Reports: headache(s); Denies: difficulty walking, vertigo or confusion PFS ED PFSH: Medical History C. difficile diarrhea Chronic back pain Dementia Depression Fatigue GERD (gastroesophageal reflux disease) History of benzodiazepine use History of drug overdose History of falling History of GI bleed History of narcotic use History of suicidal ideation Hyperlipidemia Hypertension Hypokalemia Osteoarthritis Polymyalgia rheumatica Surgical History History of abdominal surgery for gastric or duodenal ulcer History of breast biopsy History of hysterectomy Family History Mother Cancer Father Cancer Family/Other Dementia Daughter Diabetes Son Diabetes Lung disease Denies family history of CAD (coronary artery disease) Clotting disorder Chronic kidney disease (CKD) Suicide Anesthesia complication Bleeding disorder Stroke Social History Smoking and tobacco status: never smoked Alcohol intake: never Lives independently: No Household members: family Female Reproductive History: Para: 3 Physical Exam Const: GENERAL APPEARANCE: cooperative ORIENTATION/CONSCIOUSNESS: Yes awake, Yes oriented to person and Yes oriented to place HENMT: COMMON NORMALS: normocephalic HEAD & SCALP: normocephalic Eye: COMMON NORMALS: Equal, round and reactive pupils present, EOMs intact bilaterally, conjunctivae normal and no scleral icterus CONJUNCTIVA: Yes conjunctivae normal PUPIL: Yes Equal, round and reactive pupils present Neck/C-Spine: COMMON NORMALS: full ROM, no lymphadenopathy, supple and no JVD Resp: COMMON NORMALS: normal respiratory effort, No retractions, No use of accessory muscles and clear to auscultation bilaterally AUSCULTATION: clear to auscultation bilaterally Cardio: COMMON NORMALS: no JVD, regular rate, regular rhythm and No murmurs present (Cardio) RATE: regular rate RHYTHM: regular rhythm GI: COMMON NORMALS: Soft to palpation and No hepatosplenomegaly present AUSCULTATION: Yes normoactive bowel sounds PALPATION: Yes Soft to palpation, No Tenderness to palpation present (GI), No Guarding due to palpation present (GI) and Yes No hepatosplenomegaly present Extremity: COMMON NORMALS: normal to inspection, capillary refill normal, no clubbing, cyanosis or edema, no calf tenderness and no pedal edema Neuro: SENSORIUM/ORIENTATION: Yes oriented to person and Yes oriented to place Skin: COMMON NORMALS: no rashes or lesions noted GENERAL SKIN EXAM: no rashes or lesions noted Course Vital Signs: Vital signs: Vital Signs Temperature 96.3 F L 06/16/21 09:23 Pulse Rate 62 06/16/21 11:19 Respiratory Rate 20 H 06/16/21 11:19 Blood Pressure 196/103 06/16/21 11:19 Pulse Oximetry 95 06/16/21 11:19 MDM - Fall Medical Decision Making Left proximal humerus fracture on x-ray. Remainder of exam and labs reviewed as well. Patient does have a cystitis. She has urinary incontinence which is chronic we will start her on Macrodantin. Follow-up with Ortho. Reviewed with son at the bedside. Medical Records I reviewed the patient's medical records. Lab Data I reviewed the patient's lab results. : 06/16/21 09:45 06/16/21 09:45 Radiology Impressions Cervical Spine CT 06/16/21 09:31 Impression: 1. Negative for cervical spine fracture. 2. Degenerative disc narrowing at C5-C6 and C6-C7 with osteophyte formation. 3. Multilevel facet joint arthritis, mild canal stenosis and foraminal stenosis. Head CT 06/16/21 09:31 Impression: 1. Mild cerebral atrophy. 2. No acute intracerebral abnormality. Shoulder X-Ray 06/16/21 09:31 Impression: Comminuted impacted fracture of the left humeral head and neck. Laboratory Results WBC 4.3 10^3/uL (4.0-10.0) 06/16/21 09:45 RBC 3.49 10^6/uL (4.1-5.3) L 06/16/21 09:45 Hgb 9.5 g/dL (11.5-15.3) L 06/16/21 09:45 Hct 31.5 % (37.0-47.0) L 06/16/21 09:45 MCV 90.3 fl (81-99) 06/16/21 09:45 MCH 27.2 pg (28.0-34.0) L 06/16/21 09:45 MCHC 30.2 g/dL (30.0-36.0) 06/16/21 09:45 RDW 13.6 % (12.1-15.1) 06/16/21 09:45 Plt Count 192 10^3/cmm (130-400) 06/16/21 09:45 MPV 12.1 fL (7.4-10.4) H 06/16/21 09:45 Neut % (Auto) 55.5 % 06/16/21 09:45 Lymph % (Auto) 35.0 % 06/16/21 09:45 [place] % (Auto) 7.0 % 06/16/21 09:45 Eos % (Auto) 1.4 % 06/16/21 09:45 Baso % (Auto) 0.9 % 06/16/21 09:45 Neut # (Auto) 2.38 10^3/uL (1.8-7.7) 06/16/21 09:45 Lymph # (Auto) 1.5 10^3/uL (0.8-4.8) 06/16/21 09:45 [place] # (Auto) 0.3 10^3/uL (0.2-0.9) 06/16/21 09:45 Eos # (Auto) 0.1 10^3/uL (0.0-0.8) 06/16/21 09:45 Baso # (Auto) 0.0 10^3/uL (0.0-0.1) 06/16/21 09:45 Nucleated RBC % (auto) 0 % 06/16/21 09:45 Nucleated RBCs # 0.0 /100WBC 06/16/21 09:45 Sodium 141 mmol/L (136-145) 06/16/21 09:45 Potassium 4.0 mmol/L (3.5-5.1) 06/16/21 09:45 Chloride 109 mmol/L (98-107) H 06/16/21 09:45 Carbon Dioxide 22 mmol/L (22-29) 06/16/21 09:45 Anion Gap 14.0 (5-19) 06/16/21 09:45 BUN 20 mg/dL (8-23) 06/16/21 09:45 Creatinine 0.8 mg/dL (0.5-0.9) 06/16/21 09:45 GFR Calculation Not Reportable 06/16/21 09:45 Glucose 137 mg/dL (65-115) H 06/16/21 09:45 Calculated Osmolality 297 mOsm/kg (285-295) H 06/16/21 09:45 Calcium 8.6 mg/dL (8.5-10.5) 06/16/21 09:45 Total Bilirubin 0.3 mg/dL (0.15-1.2) 06/16/21 09:45 AST 14 U/L (0-32) 06/16/21 09:45 ALT < 5 U/L (0-33) 06/16/21 09:45 Alkaline Phosphatase 75 IU/L (35-105) 06/16/21 09:45 Total Protein 6.6 g/dL (6.6-8.7) 06/16/21 09:45 Albumin 4.1 g/dL (3.5-5.2) 06/16/21 09:45 Globulin 2.5 g/dL (1.3-4.6) 06/16/21 09:45 Urine Color Yellow (Yellow) 06/16/21 10:20 Urine Appearance Hazy (CLEAR) A 06/16/21 10:20 Urine pH 5 (5-7) 06/16/21 10:20 Ur Specific [place] 1.020 (1.005-1.030) 06/16/21 10:20 Urine Protein Trace (Negative) 06/16/21 10:20 Urine Glucose (UA) Norm (Normal) 06/16/21 10:20 Urine Ketones Negative (Negative) 06/16/21 10:20 Urine Blood 2+ (Negative) H 06/16/21 10:20 Urine Nitrate Positive (Negative) H 06/16/21 10:20 Urine Bilirubin Neg (Negative) 06/16/21 10:20 Urine Urobilinogen Norm mg/dL (Negative) 06/16/21 10:20 Ur Leukocyte Esterase 1+ (Negative) H 06/16/21 10:20 Urine RBC 5-10 /hpf (0-2) H 06/16/21 10:20 Urine WBC >100 /hpf (0-5) H 06/16/21 10:20 Ur Squamous Epith Cells 5-10 /hpf (0-5) H 06/16/21 10:20 Amorphous Sediment Not Reportable 06/16/21 10:20 Urine Bacteria 2+ /hpf (NONE) H 06/16/21 10:20 Discharge Plan Discharge Patient Disposition: Home Clinical Impression: Fracture of proximal end of left humerus, Fall, Cystitis Condition: Stable Prescriptions: New hydrocodone-acetaminophen 5-325 mg tablet 1 tab PO Q6H PRN (Reason: pain) Qty: 20 0RF Macrodantin 100 mg capsule 100 mg PO BID 7 Days Qty: 14 0RF Rx Instructions: must administer with a meal/food No Action Imodium A-D 2 mg Capsule 2 mg PO Q4H PRN (Reason: Diarrhea) 0RF donepezil 10 mg tablet 10 mg PO DAILY 0RF sertraline 100 mg tablet 100 mg PO DAILY 0RF pantoprazole 40 mg tablet,delayed release (DR/EC) 40 mg PO DAILY 0RF diphenhydramine HCl 25 mg Tablet 25 mg PO BEDTIME 0RF oxybutynin chloride 5 mg tablet 5 mg PO TID 0RF memantine 5 mg tablet 5 mg PO BID 0RF metoprolol tartrate 25 mg tablet 25 mg PO BID@09,21 0RF trazodone 50 mg tablet 25 mg PO BEDTIME Qty: 0 0RF Discharge Orders: Discharge ED (Routine); Ordered 06/16/21 Ordered By: Tee Granados Referrals: Lana Rodríguez DO [Primary Care Provider] - Discharge Diet: Usual diet Discharge Activity: Limit activity as instructed Patient Instructions: Opioid Safety Activity Restrictions/Additional Instructions: No use of the left arm. Case management make arrangements for you to follow-up with orthopedics as an outpatient Coding Level of Care Code ED Residential [place] for Rashad Guzman Exam Comprehensive
[2021-06-16 09:55] LABS: Basophils % 0.9 %; Eosinophils # 0.1 10^3/uL (0.0-0.8); Eosinophils % 1.4 %; Hematocrit 31.5 % (37.0-47.0); Hemoglobin 9.5 g/dL (11.5-15.3); Lymphocytes # 1.5 10^3/uL (0.8-4.8); Mean Corpuscular HGB Conc 30.2 g/dL (30.0-36.0); Mean Corpuscular Hemoglobin 27.2 pg (28.0-34.0); Mean Corpuscular Volume 90.3 fl (81-99); Mean Platelet Volume 12.1 fL (7.4-10.4); Monocytes # 0.3 10^3/uL (0.2-0.9); Neutrophils # 2.38 10^3/uL (1.8-7.7); Neutrophils % 55.5 %; Nucleated Red Blood Cells % 0 %; Platelet Count 192 10^3/cmm (130-400); Red Blood Count 3.49 10^6/uL (4.1-5.3); Red Cell Distribution Width 13.6 % (12.1-15.1); White Blood Count 4.3 10^3/uL (4.0-10.0)
[2021-06-16 10:23] LABS: Alanine Aminotransferase < 5 U/L (0-33); Albumin Level 4.1 g/dL (3.5-5.2); Alkaline Phosphatase 75 IU/L (35-105); Aspartate Amino Transferase 14 U/L (0-32); Blood Urea Nitrogen 20 mg/dL (8-23); Calcium 8.6 mg/dL (8.5-10.5); Carbon Dioxide 22 mmol/L (22-29); Chloride 109 mmol/L (98-107); Globulin 2.5 g/dL (1.3-4.6); Glucose 137 mg/dL (65-115); Osmolality Calculated 297 mOsm/kg (285-295); Sodium 141 mmol/L (136-145); Total Bilirubin 0.3 mg/dL (0.15-1.2); Total Protein 6.6 g/dL (6.6-8.7)
[2021-06-16 10:40] LABS: Add Urine Microscopic? YES; Bilirubin Urine Neg (Negative); Blood Urine 2+ (Negative); Glucose Urine UA Norm (Normal); Ketones Urine Negative (Negative); Leukocyte Esterase Urine 1+ (Negative); Nitrate Urine Positive (Negative); Protein Urine Trace (Negative); Urine Appearance Hazy (CLEAR); Urine Color Yellow (Yellow); Urobilinogen Urine Norm (Negative); pH Urine 5 (5-7)
[2021-06-16 10:41] LABS: Add Urine Culture? Yes; Bacteria Urine 2+ /hpf; WBC Urine >100 /hpf (0-5)
[2021-06-16 11:19] VITALS: BP 196/103; PULSE 62; RESP 20; O2SAT 95
--- NOTE | 2021-06-16 11:20 | PC.NURSE ---
REPORT CALLED TO ROJELIO. SPOKE TO TYLER.
[2021-06-16 11:39] VITALS: BP 196/103; PULSE 58; RESP 20; O2SAT 99
--- NOTE | 2021-06-17 10:26 | DCPLANNER ---
Addendum entered by Alcira Jalloh 06/23/21 09:42: Patient had a follow up appointment scheduled for 06.18.[address] Doty at ortho - patient did attend appointment. Original Note: senior planning manager had message to schedule a followup appointment for patient with ortho. senior planning manager called the ortho clinic, spoke with Teresa, gave clinic patients information. senior planning manager was told that patients information would be printed and reviewed. Clinic will call patient with appointment information.
== END 2021-06-16 11:42 | disposition home or self-care (01) ==
PROVIDERS: Emergency Provider Family Medicine; PCP Family Medicine
DX: S42.292A Other displaced fracture of upper end of left humerus, initial encounter for closed fracture (principal); N30.90 Cystitis, unspecified without hematuria; F03.90 Unspecified dementia, unspecified severity, without behavioral disturbance, psychotic disturbance, mood disturbance, and anxiety; E78.5 Hyperlipidemia, unspecified; I10 Essential (primary) hypertension; W18.2XXA Fall in (into) shower or empty bathtub, initial encounter; Y92.091 Bathroom in other non-institutional residence as the place of occurrence of the external cause
CPT/HCPCS: 70450; 72125; 73030; 80053; 81001; 85025; 87077; 87086; 87186; 99283

== ENCOUNTER → 2021-06-24 15:40 | Outpatient (BNVA) | payer MEDICARE, OTHER, SELFPAY | PROVIDERS: PCP Family Medicine; Visit Provider Internal Medicine Cardiovascular Disease | DX: R07.9 Chest pain, unspecified (principal); E87.6 Hypokalemia; I10 Essential (primary) hypertension; F03.91 Unspecified dementia, unspecified severity, with behavioral disturbance; I34.0 Nonrheumatic mitral (valve) insufficiency | CPT/HCPCS: 99213; 99214 ==

== ENCOUNTER → 2021-07-01 13:55 | Outpatient (BNVA) | payer MEDICARE, OTHER, SELFPAY | PROVIDERS: PCP Family Medicine; Visit Provider Orthopaedic Surgery | DX: S42.202D Unspecified fracture of upper end of left humerus, subsequent encounter for fracture with routine healing (principal); X58.XXXD Exposure to other specified factors, subsequent encounter | CPT/HCPCS: 73030 ==

== ENCOUNTER → 2021-07-29 13:25 | Outpatient (BNVA) | payer MEDICARE, OTHER, SELFPAY | PROVIDERS: PCP Family Medicine; Visit Provider Orthopaedic Surgery | DX: Z98.890 Other specified postprocedural states (principal); S42.202A Unspecified fracture of upper end of left humerus, initial encounter for closed fracture; X58.XXXA Exposure to other specified factors, initial encounter | CPT/HCPCS: 73030 ==

== ENCOUNTER 2021-08-09 14:07 | Outpatient (CLI) | payer MEDICARE, OTHER, SELFPAY ==
[2021-08-09 14:31] LABS: Urine Appearance Hazy (CLEAR); Urine Color Yellow (Yellow); pH Urine 7 (5-7)
[2021-08-09 14:32] LABS: Add Urine Culture? Yes; Add Urine Microscopic? YES; Bacteria Urine 4+ /hpf; Bilirubin Urine Neg (Negative); Blood Urine 2+ (Negative); Glucose Urine UA Norm (Normal); Ketones Urine Negative (Negative); Leukocyte Esterase Urine Trace (Negative); Nitrate Urine Positive (Negative); Protein Urine Neg (Negative); RBC Urine 0-4 /hpf (0-2); Urobilinogen Urine Norm (Negative); WBC Urine 25-40 /hpf (0-5)
== END 2021-08-09 14:08 | disposition home or self-care (01) ==
PROVIDERS: PCP Family Medicine; Visit Provider Family Medicine
DX: N39.0 Urinary tract infection, site not specified (principal)
CPT/HCPCS: 81001; 87077; 87086; 87186

== ENCOUNTER 2021-08-27 14:30 | Outpatient (CLI) | payer MEDICARE, OTHER, SELFPAY | END 2021-08-27 14:31 | disposition home or self-care (01) | LOC: LAB 14:34 | PROVIDERS: PCP Family Medicine; Visit Provider Family Medicine | DX: R19.7 Diarrhea, unspecified (principal) | CPT/HCPCS: 82274 ==

== ENCOUNTER 2021-09-08 15:29 | Outpatient (CLI) | payer MEDICARE, OTHER, SELFPAY ==
[2021-09-08 15:51] LABS: Basophils # 0.1 10^3/uL (0.0-0.1); Basophils % 1.4 %; Eosinophils # 0.1 10^3/uL (0.0-0.8); Eosinophils % 1.7 %; Hematocrit 32.6 % (37.0-47.0); Hemoglobin 9.4 g/dL (11.5-15.3); Lymphocytes # 1.5 10^3/uL (0.8-4.8); Lymphocytes % 28.5 %; Mean Corpuscular HGB Conc 28.8 g/dL (30.0-36.0); Mean Corpuscular Hemoglobin 24.3 pg (28.0-34.0); Mean Corpuscular Volume 84.2 fl (81-99); Mean Platelet Volume 12.2 fL (7.4-10.4); Monocytes # 0.4 10^3/uL (0.2-0.9); Monocytes % 7.4 %; Neutrophils # 3.14 10^3/uL (1.8-7.7); Neutrophils % 60.8 %; Nucleated Red Blood Cells % 0 %; Platelet Count 279 10^3/cmm (130-400); Red Blood Count 3.87 10^6/uL (4.1-5.3); Red Cell Distribution Width 15.4 % (12.1-15.1); White Blood Count 5.2 10^3/uL (4.0-10.0)
== END 2021-09-08 15:30 | disposition home or self-care (01) ==
PROVIDERS: PCP Family Medicine; Visit Provider Family Medicine
DX: D50.9 Iron deficiency anemia, unspecified (principal)
CPT/HCPCS: 85025

== ENCOUNTER 2022-01-14 15:42 | Emergency (ER) | payer MEDICARE, OTHER, SELFPAY ==
[2022-01-14 15:54] VITALS: BMI 26.4
--- NOTE | 2022-01-14 15:56 | ECG_ITS ---
[facility] Test Date: 2022-01-14 Pat Name: Sandy Jordan Department: Room: Gender: Female Brand Engineer: : [id number] Requested By: Tayler Ng Order Number: [id number] MD: Sharyn Dsouza M.D. Measurements Intervals [place] Rate: 62 P: 71 OR: 182 QRS: -15 QRSD: 93 T: 58 QT: 428 QTc: 436 Interpretive Statements SINUS RHYTHM MINIMAL VOLTAGE CRITERIA FOR LVH, CONSIDER NORMAL VARIANT NONSPECIFIC ST & T-WAVE ABNORMALITY Compared to ECG 03/14/2021 17:30:44 Atrial fibrillation no longer present Possible ischemia no longer present T-wave abnormality still present Electronically Signed On 01-15-2022 12:54:02 CDT by Sharyn Dsouza M.D. [id number]
--- NOTE | 2022-01-14 15:57 | W.ED.GENADLT ---
HPI - General Adult General: Chief complaint: General Medical Stated complaint: HTN Time Seen by Provider: 01/14/22 15:56 History of Present Illness: Patient is an 81-year-old female with history of Alzeiheimer's disease, hypertension, C. difficile, depression presenting to the emergency room for evaluation of uncontrolled blood pressure. Patient presents from [facility] for concerns of elevated blood pressure today. Patient has no focal complaints today including chest pain, shortness breath palpitation, nausea/vomiting, abdominal pain, diarrhea/melena/hematochezia. Patient takes metoprolol for blood pressure. Patient does not recall taking any other medication for blood pressure. Patient has no focal weakness or neurological complaints at this time. Onset: earlier today Duration: ongoing Location:[facility] Severity:moderate Associated symptoms: Deny chest pain, dyspnea, nausea, rash, palpitations or vomiting Review of Systems Const: Denies: fever(s) or chills Eyes: Denies: change in vision ENMT: Denies: mouth pain Card: Denies: chest pain or palpitations Resp: Denies: dyspnea or non-productive cough GI: Denies: abdominal pain, nausea, vomiting or diarrhea : Denies: dysuria Musc: Denies: extremity pain Skin/Breast: Denies: rash or new lesions Neuro: Denies: weakness in extremities Psych: Reports: other (Normal mood) Galo/Lymph: Denies: easy bruising PFSH ED PFSH: Medical History C. difficile diarrhea Chronic back pain Dementia Depression Fatigue GERD (gastroesophageal reflux disease) History of benzodiazepine use History of drug overdose History of falling History of GI bleed History of narcotic use History of suicidal ideation Hyperlipidemia Hypertension Hypokalemia Osteoarthritis Polymyalgia rheumatica Surgical History History of abdominal surgery for gastric or duodenal ulcer History of breast biopsy History of hysterectomy Family History Mother Cancer Father Cancer Family/Other Dementia Daughter Diabetes Son Diabetes Lung disease Denies family history of CAD (coronary artery disease) Clotting disorder Chronic kidney disease (CKD) Suicide Anesthesia complication Bleeding disorder Stroke Social History Smoking and tobacco status: never smoked Alcohol intake: never Lives independently: No Household members: family Female Reproductive History: Para: 3 Physical Exam Const: COMMON NORMALS: alert HENMT: COMMON NORMALS: atraumatic HEAD & SCALP: atraumatic MOUTH: moist mucous membranes not abnormal Eye: COMMON NORMALS: EOMs intact bilaterally and conjunctivae normal CONJUNCTIVA: Yes conjunctivae normal Neck/C-Spine: COMMON NORMALS: full ROM and supple Resp: COMMON NORMALS: normal respiratory effort and clear to auscultation bilaterally AUSCULTATION: clear to auscultation bilaterally Cardio: COMMON NORMALS: regular rate RATE: regular rate OTHER: 2+ radial pulses b/l GI: COMMON NORMALS: Soft to palpation and non-tender PALPATION: Yes Soft to palpation OTHER: No focal TTP. NO guarding rebound, guarding, rigidity. No CVA tenderness to percussion. Neg Telles/Neg McBurney's point tenderness, no suprabupic tenderness to palpation. Extremity: COMMON NORMALS: full ROM Neuro: SENSORIUM/ORIENTATION: Yes alert MOTOR EXAM: No Abnormal motor strength present and Other motor observations present (no focal motor deficits) Psych: COMMON NORMALS: speech normal SPEECH: Yes normal speech MOOD & AFFECT: Yes euthymic mood Course Vital Signs: Vital signs: Vital Signs Pulse Rate 66 01/14/22 20:28 Respiratory Rate 15 01/14/22 20:28 Blood Pressure 152/82 01/14/22 20:28 Pulse Oximetry 97 01/14/22 20:28 Oxygen Delivery Me thod 01/14/22 19:32 MDM - General Adult Medical Decision Making [81]yo patient w/ hx of HTN on metoprolol only medications presenting to the ED with high BP readings x 1 day without other medical complaints.Rest of exam including full neuro exam intact. Given presentation, history and exam, I do not suspect aortic dissection, hypertensive encephalopathy, intracranial hemorrhage, ACS, TIA/CVA, flash pulmonary edema. Intervention: Nifedipine 30mg x 1, and amlodipine 5mg daily [6:30pm] On reassessment, BP improved. Patient continues to be symptom-free at this time. Do not suspect an emergent cause. Discussed with the patient the importance of logging BPs and following up with his PCP for adjustment of BP if BP continues to be persistently high. Given return instructions. Lab work-up showed no signs of endorgan damage. Troponin wnl. EKG did not show any signs of ischemia. Rx: Amlodipine 5mg QDaily for elevated bP Based on history, exam, vital signs, and work up (as indicated) I do not suspect an ongoing emergent medical condition, and I believe the patient is safe for discharge and outpatient follow-up. The plan of care was discussed with the patient and all questions were answered. The patient agrees with the plan of care and is discharged in stable condition with verbal and written instructions, and verbalized understanding and ability to comply. I discussed the diagnosis and treatment plan at length with the patient. The patient understands signs and symptoms (including those which are new or worsening) which should prompt return to the ED. The patient is to seek prompt outpatient follow-up as noted verbally and/or in the discharge instructions. At the time of discharge the patient is well-appearing, well-hydrated, non-toxic, and assures appropriate follow-up as an outpatient. Lab Data : 01/14/22 16:20 01/14/22 16:20 Laboratory Results WBC 5.2 10^3/uL (4.0-10.0) 01/14/22 16:20 RBC 4.19 10^6/uL (4.1-5.3) 01/14/22 16:20 Hgb 12.0 g/dL (11.5-15.3) 01/14/22 16:20 Hct 37.1 % (37.0-47.0) 01/14/22 16:20 MCV 88.5 fl (81-99) 01/14/22 16:20 MCH 28.6 pg (28.0-34.0) 01/14/22 16:20 MCHC 32.3 g/dL (30.0-36.0) 01/14/22 16:20 RDW 13.6 % (12.1-15.1) 01/14/22 16:20 Plt Count 194 10^3/cmm (130-400) 01/14/22 16:20 MPV 11.7 fL (7.4-10.4) H 01/14/22 16:20 Neut % (Auto) 58.8 % 01/14/22 16:20 Lymph % (Auto) 31.6 % 01/14/22 16:20 [place] % (Auto) 7.2 % 01/14/22 16:20 Eos % (Auto) 1.4 % 01/14/22 16:20 Baso % (Auto) 0.8 % 01/14/22 16:20 Neut # (Auto) 3.04 10^3/uL (1.8-7.7) 01/14/22 16:20 Lymph # (Auto) 1.6 10^3/uL (0.8-4.8) 01/14/22 16:20 [place] # (Auto) 0.4 10^3/uL (0.2-0.9) 01/14/22 16:20 Eos # (Auto) 0.1 10^3/uL (0.0-0.8) 01/14/22 16:20 Baso # (Auto) 0.0 10^3/uL (0.0-0.1) 01/14/22 16:20 Nucleated RBC % (auto) 0 % 01/14/22 16:20 Nucleated RBCs # 0.0 /100WBC 01/14/22 16:20 Sodium 140 mmol/L (136-145) 01/14/22 16:20 Potassium 4.5 mmol/L (3.5-5.1) 01/14/22 16:20 Chloride 103 mmol/L (98-107) 01/14/22 16:20 Carbon Dioxide 24 mmol/L (22-29) 01/14/22 16:20 Anion Gap 17.5 (5-19) 01/14/22 16:20 BUN 16 mg/dL (8-23) 01/14/22 16:20 Creatinine 1.0 mg/dL (0.5-0.9) H 01/14/22 16:20 GFR Calculation Not Reportable 01/14/22 16:20 Glucose 107 mg/dL (65-115) 01/14/22 16:20 Calculated Osmolality 292 mOsm/kg (285-295) 01/14/22 16:20 Calcium 9.2 mg/dL (8.5-10.5) 01/14/22 16:20 Troponin T Baseline 9 ng/L (0-10) 01/14/22 16:20 Troponin T 120 Minute 8.46 ng/L (0-10) 01/14/22 18:14 Delta Troponin T -0.54 ABS# (0-10) L 01/14/22 18:14 Discharge Plan Discharge Patient Disposition: Home Clinical Impression: Hypertension Condition: Stable Prescriptions: New amlodipine 5 mg tablet 5 mg PO DAILY 14 Days Qty: 14 0RF No Action hydroxyzine HCl 10 mg tablet 10 mg PO Q8H PRN (Reason: itching, anxiety) Qty: 30 2RF hydrocodone-acetaminophen 5-325 mg tablet 1 tab PO Q6H PRN (Reason: pain) 30 Days Qty: 120 0RF loperamide [Imodium A-D] 2 mg Capsule 2 mg PO Q4H PRN (Reason: Diarrhea) donepezil 10 mg tablet 10 mg PO DAILY sertraline 100 mg tablet 100 mg PO DAILY pantoprazole 40 mg tablet,delayed release (DR/EC) 40 mg PO DAILY oxybutynin chloride 5 mg tablet 5 mg PO TID memantine 5 mg tablet 5 mg PO BID metoprolol tartrate 25 mg tablet 25 mg PO BID@, trazodone 50 mg tablet 25 mg PO BEDTIME Qty: 0 0RF Tylenol 325 mg Tablet 650 mg PO QID PRN (Reason: Pain) triamcinolone acetonide 0.025 % cream 1 applic TOPICAL DAILY PRN (Reason: Itching) ferrous sulfate 325 mg (65 mg iron) Tablet 325 mg PO DAILY docusate sodium 100 mg Tablet 100 mg PO BID cholestyramine (with sugar) 4 gram Powder In Packet 4 g PO DAILY Rx Instructions: administer w/meal; avoid other meds within 1hr before or 4-6hr after dose Discharge Orders: Discharge ED (Routine); Ordered 01/14/22 Ordered By: Tayler Ng Referrals: Jc Sánchez DO [Primary Care Provider] - Discharge Diet: Advance as tolerated Discharge Activity: Increase activity as tolerated Patient Instructions: Hypertension (ED) Activity Restrictions/Additional Instructions: You need to follow-up with your primary care provider for further adjustment of your blood pressure. Your blood pressure puts you at risk for developing strokes and heart attack. Therefore it is very important for you to follow-up with this number to see if the numbers improve gradually. Because blood pressure adjustment is a gradual process, were not able to change it in 1 visit. Therefore please log your blood pressure and follow-up with your primary care provider in the next 72 hours for further adjustment of your blood pressures. Coding Level of Care Code ED Epic [facility] for [facility] Fwd Exam Comprehensive
[2022-01-14 15:59] VITALS: BP 204/108; PULSE 67; RESP 15; O2SAT 95
[2022-01-14 16:26] LABS: Basophils % 0.8 %; Eosinophils # 0.1 10^3/uL (0.0-0.8); Eosinophils % 1.4 %; Hematocrit 37.1 % (37.0-47.0); Lymphocytes # 1.6 10^3/uL (0.8-4.8); Lymphocytes % 31.6 %; Mean Corpuscular HGB Conc 32.3 g/dL (30.0-36.0); Mean Corpuscular Hemoglobin 28.6 pg (28.0-34.0); Mean Corpuscular Volume 88.5 fl (81-99); Mean Platelet Volume 11.7 fL (7.4-10.4); Monocytes # 0.4 10^3/uL (0.2-0.9); Monocytes % 7.2 %; Neutrophils # 3.04 10^3/uL (1.8-7.7); Neutrophils % 58.8 %; Nucleated Red Blood Cells % 0 %; Platelet Count 194 10^3/cmm (130-400); Red Blood Count 4.19 10^6/uL (4.1-5.3); Red Cell Distribution Width 13.6 % (12.1-15.1); White Blood Count 5.2 10^3/uL (4.0-10.0)
[2022-01-14 16:58] LABS: Troponin(5th) Baseline 9 ng/L (0-10)
[2022-01-14 16:59] LABS: Blood Urea Nitrogen 16 mg/dL (8-23); Calcium 9.2 mg/dL (8.5-10.5); Carbon Dioxide 24 mmol/L (22-29); Chloride 103 mmol/L (98-107); Glucose 107 mg/dL (65-115); Osmolality Calculated 292 mOsm/kg (285-295); Sodium 140 mmol/L (136-145)
[2022-01-14 17:10] LABS: Anion Gap 17.5 (5-19); Potassium 4.5 mmol/L (3.5-5.1)
[2022-01-14 17:28] VITALS: BP 204/138; PULSE 68; RESP 15; O2SAT 98
[2022-01-14] MEDS: amlodipine 5 mg Tablet PO (17:50)
[2022-01-14] MEDS: NIFEdipine ER (24 hr) 30 mg Tablet PO (17:50)
--- NOTE | 2022-01-14 17:56 | ECG_ITS ---
[facility] Test Date: 2022-01-14 Pat Name: Sandy Jordan Department: Room: Gender: Female Market Intelligence Consultant: : 1940 Requested By: Tayler Ng Order Number: [id number] Kings MD: Sharyn Dsouza M.D. Measurements Intervals [place] Rate: 61 P: 60 RI: 180 QRS: -13 QRSD: 87 T: 48 QT: 410 QTc: 413 Interpretive Statements SINUS RHYTHM MINIMAL VOLTAGE CRITERIA FOR LVH, CONSIDER NORMAL VARIANT [MEETS CRITERIA IN ONE OF: R(aVL), S(V1), R(V5), R(V5/V6)+S(V1)] NONSPECIFIC T-WAVE ABNORMALITY Compared to ECG 01/14/2022 17:04:25 No significant changes Electronically Signed On 01-15-2022 12:59:38 CDT by Sharyn Dsouza M.D. [id number]
[2022-01-14 18:00] VITALS: BP 212/106; PULSE 66; RESP 16; O2SAT 98
[2022-01-14 18:28] VITALS: BP 215/113; PULSE 65; RESP 15; O2SAT 97
[2022-01-14 18:44] LABS: Troponin 5 2HR 8.46 ng/L (0-10)
[2022-01-14 19:11] LABS: Troponin 5 2HR Delta -0.54 ABS# (0-10)
[2022-01-14] MEDS: NIFEdipine ER (24 hr) 30 mg Tablet 60 MG PO (19:28)
[2022-01-14 19:32] VITALS: BP 202/100; PULSE 64; RESP 15; O2SAT 96
[2022-01-14 20:28] VITALS: BP 152/82; PULSE 66; RESP 15; O2SAT 97
== END 2022-01-14 20:30 | disposition home or self-care (01) ==
PROVIDERS: Emergency Provider Emergency Medicine; PCP Family Medicine
DX: I10 Essential (primary) hypertension (principal); F03.90 Unspecified dementia, unspecified severity, without behavioral disturbance, psychotic disturbance, mood disturbance, and anxiety; E78.5 Hyperlipidemia, unspecified
CPT/HCPCS: 36415; 80048; 84484; 85025; 93005; 99285

== ENCOUNTER 2022-01-30 19:32 | Emergency (ER) | payer MEDICARE, OTHER, SELFPAY ==
[2022-01-30 19:38] VITALS: BP 198/95; PULSE 62; RESP 16; TEMP 36.4; O2SAT 98
[2022-01-30] MEDS: amlodipine 10 mg Tablet PO (20:16)
[2022-01-30] MEDS: nitroglycerin 0.4 mg sublingual Tablet SUBLINGUAL (20:17)
[2022-01-30] MEDS: enalaprilat 1.25 mg/mL Inj IVP (20:17)
[2022-01-30 20:21] VITALS: BP 208/87; PULSE 74; RESP 18; O2SAT 94
--- NOTE | 2022-01-30 20:30 | ECG_ITS ---
[facility] Test Date: 2022-01-30 Pat Name: Sandy Jordan Department: Room: Gender: Female Universal Grinder Operator: : 1940 Requested By: Lavell Tapia Order Number: [id number] Kings MD: Sharyn Dsouza M.D. Measurements Intervals [place] Rate: 59 P: 70 DE: 186 QRS: 12 QRSD: 91 T: 81 QT: 437 QTc: 436 Interpretive Statements SINUS BRADYCARDIA Compared to ECG 01/14/2022 18:29:21 Sinus rhythm no longer present T-wave abnormality no longer present Electronically Signed On 01-30-2022 20:57:08 CDT by Sharyn Dsouza M.D. [email or web address]/[id number]
[2022-01-30 21:06] VITALS: BP 155/78; PULSE 56; RESP 17; O2SAT 96
--- NOTE | 2022-01-30 21:40 | W.ED.GENADLT ---
HPI - General Adult General: Chief complaint: General Medical Stated complaint: HIGH BLOOD PRESSURE Time Seen by Provider: 01/30/22 19:36 Source: patient History of Present Illness: 81-year-old female patient with a history of dementia who is a patient at [facility]. She presents with hypertension this evening. Evidently blood pressures were elevated there. She is completely asymptomatic. She denies headache, vision changes, chest pain, shortness of breath, nausea, any other symptoms. She notes that she was sitting around watching TV prior to the ambulance bringing her here. Onset (ago): hour(s) Radiation: non-radiation Quality: other Pain Consistency: other Relieving factors: other Exacerbating factors: other Associated symptoms: Deny chest pain, confusion, cough, diaphoresis, decreased appetite, dyspnea, fevers/chills, headache(s), nausea, palpitations, short of breath, syncope, vomiting or weakness Treatments prior to arrival: none Review of Systems Const: Denies: diaphoresis Card: Denies: chest pain, palpitations or syncope Resp: Denies: dyspnea GI: Denies: nausea or vomiting Neuro: Denies: headache(s) or confusion Psych: Denies: anxiety PFSH ED PFSH: Medical History C. difficile diarrhea Chronic back pain Dementia Depression Fatigue GERD (gastroesophageal reflux disease) History of benzodiazepine use History of drug overdose History of falling History of GI bleed History of narcotic use History of suicidal ideation Hyperlipidemia Hypertension Hypokalemia Osteoarthritis Polymyalgia rheumatica Surgical History History of abdominal surgery for gastric or duodenal ulcer History of breast biopsy History of hysterectomy Family History Mother Cancer Father Cancer Family/Other Dementia Daughter Diabetes Son Diabetes Lung disease Denies family history of CAD (coronary artery disease) Clotting disorder Chronic kidney disease (CKD) Suicide Anesthesia complication Bleeding disorder Stroke Social History Smoking and tobacco status: never smoked Alcohol intake: never Lives independently: No Household members: family Female Reproductive History: Para: 3 Physical Exam Const: COMMON NORMALS: no acute distress and alert GENERAL APPEARANCE: cooperative; not ill appearing HENMT: COMMON NORMALS: normocephalic, atraumatic and Normal external nose present HEAD & SCALP: normocephalic and atraumatic FACE & SINUS: normal facial exam and face symmetric NOSE: Normal external nose present Eye: COMMON NORMALS: Equal, round and reactive pupils present and EOMs intact bilaterally PUPIL: Yes Equal, round and reactive pupils present Neck/C-Spine: GENERAL: Yes trachea midline Chest: CHEST: Yes Symmetrical chest wall rise Resp: COMMON NORMALS: normal respiratory effort, No use of accessory muscles and clear to auscultation bilaterally AUSCULTATION: clear to auscultation bilaterally Cardio: COMMON NORMALS: regular rate and regular rhythm RATE: regular rate RHYTHM: regular rhythm HEART SOUNDS: Murmur heart sound present systolic GI: COMMON NORMALS: Normal to inspection, nondistended, normoactive bowel sounds present and Soft to palpation INSPECTION: Yes normal to inspection PALPATION: Yes Soft to palpation Extremity: NARRATIVE EXTREMITY EXAM: No pitting edema Neuro: EMMA COMA SCALE: document GCS findings [place] coma scale eye opening: Spontaneous Emma coma scale verbal response: Orientated Emma coma scale motor response: Obey commands [place] coma scale total score: 15 SENSORIUM/ORIENTATION: Yes alert Psych: COMMON NORMALS: cooperative Skin: COMMON NORMALS: no wounds Course Vital Signs: Vital signs: Vital Signs Temperature 97.5 F L 01/30/22 19:38 Pulse Rate 56 L 01/30/22 21:06 Respiratory Rate 17 01/30/22 21:06 Blood Pressure 155/78 01/30/22 21:06 Pulse Oximetry 96 01/30/22 21:06 Oxygen Delivery Me thod 01/30/22 21:06 [facility] - General Adult Medical Decision Making This is a completely asymptomatic female with hypertension. She was worked up for hypertension 2 weeks ago in the emergency department. Work-up was essentially not remarkable at that time. Her EKG shows a sinus bradycardia with no acute ST change, normal axis and intervals and a rate of 59. Her blood pressure is improved from 200s systolic to 160 systolic following administration of medication. We will go up on her amlodipine to 10 mg daily, have them check her blood pressure, and follow-up with her doctor who can adjust her medication further in an appropriate setting. Discharge Plan Discharge Patient Disposition: Home Clinical Impression: Hypertension Condition: Stable Prescriptions: New amlodipine 10 mg tablet 10 mg PO DAILY Qty: 30 0RF No Action hydroxyzine HCl 10 mg tablet 10 mg PO Q8H PRN (Reason: itching, anxiety) Qty: 30 2RF hydrocodone-acetaminophen 5-325 mg tablet 1 tab PO Q6H PRN (Reason: pain) 30 Days Qty: 120 0RF loperamide [Imodium A-D] 2 mg Capsule 2 mg PO Q4H PRN (Reason: Diarrhea) donepezil 10 mg tablet 10 mg PO DAILY sertraline 100 mg tablet 100 mg PO DAILY pantoprazole 40 mg tablet,delayed release (DR/EC) 40 mg PO DAILY oxybutynin chloride 5 mg tablet 5 mg PO TID memantine 5 mg tablet 5 mg PO BID metoprolol tartrate 25 mg tablet 25 mg PO BID@ trazodone 50 mg tablet 25 mg PO BEDTIME Qty: 0 0RF Tylenol 325 mg Tablet 650 mg PO QID PRN (Reason: Pain) triamcinolone acetonide 0.025 % cream 1 applic TOPICAL DAILY PRN (Reason: Itching) ferrous sulfate 325 mg (65 mg iron) Tablet 325 mg PO DAILY docusate sodium 100 mg Tablet 100 mg PO BID cholestyramine (with sugar) 4 gram Powder In Packet 4 g PO DAILY Rx Instructions: administer w/meal; avoid other meds within 1hr before or 4-6hr after dose Discharge Orders: Discharge ED (Routine); Ordered 01/30/22 Ordered By: Lavell Barrera Referrals: Jc Sánchez DO [Primary Care Provider] - 1-3 days Patient Instructions: Hypertension (ED) Activity Restrictions/Additional Instructions: Return for chest discomfort, shortness of breath, mental status changes, other concerning symptoms. Coding Level of Care Code ED [employer] for Rashad Guzman
== END 2022-01-30 22:51 | disposition home or self-care (01) ==
PROVIDERS: Emergency Provider Emergency Medicine; PCP Family Medicine
DX: I10 Essential (primary) hypertension (principal); F03.90 Unspecified dementia, unspecified severity, without behavioral disturbance, psychotic disturbance, mood disturbance, and anxiety
CPT/HCPCS: 93005; 96374; 99284; J3490

== ENCOUNTER 2022-06-06 17:33 | Outpatient (CLI) | payer MEDICARE, OTHER, SELFPAY ==
[2022-06-06 17:57] LABS: Add Urine Culture? No; Add Urine Microscopic? YES; Bacteria Urine 4+ /hpf; Bilirubin Urine Neg (Negative); Blood Urine 2+ (Negative); Glucose Urine UA Norm (Normal); Ketones Urine Negative (Negative); Leukocyte Esterase Urine 2+ (Negative); Nitrate Urine Negative (Negative); Protein Urine Neg (Negative); RBC Urine 0-4 /hpf (0-2); Specific Gravity, Urine 1.015 (1.005-1.030); Squamous Epithelial Cell Urine 0-4 /hpf (0-5); Urine Appearance Clear (CLEAR); Urine Color Yellow (Yellow); Urobilinogen Urine Norm (Negative); WBC Urine 55-80 /hpf (0-5); pH Urine 5 (5-7)
== END 2022-06-06 17:34 | disposition home or self-care (01) ==
PROVIDERS: PCP Family Medicine; Visit Provider Family Medicine
DX: N39.0 Urinary tract infection, site not specified (principal)
CPT/HCPCS: 81001; 87077; 87086; 87186

== ENCOUNTER 2022-09-03 13:07 | Outpatient (CLI) | payer MEDICARE, OTHER, SELFPAY ==
[2022-09-03 13:36] LABS: Basophils # 0.1 10^3/uL (0.0-0.1); Basophils % 1.3 %; Eosinophils % 0.7 %; Hematocrit 38.9 % (37.0-47.0); Hemoglobin 12.7 g/dL (11.5-15.3); Lymphocytes # 1.6 10^3/uL (0.8-4.8); Lymphocytes % 29.5 %; Mean Corpuscular HGB Conc 32.6 g/dL (30.0-36.0); Mean Corpuscular Hemoglobin 29.3 pg (28.0-34.0); Mean Corpuscular Volume 89.6 fl (81-99); Mean Platelet Volume 11.4 fL (7.4-10.4); Monocytes # 0.4 10^3/uL (0.2-0.9); Monocytes % 6.9 %; Neutrophils # 3.38 10^3/uL (1.8-7.7); Neutrophils % 61.2 %; Nucleated Red Blood Cells % 0 %; Platelet Count 235 10^3/cmm (130-400); Red Blood Count 4.34 10^6/uL (4.1-5.3); White Blood Count 5.5 10^3/uL (4.0-10.0)
[2022-09-03 13:51] LABS: Estmated Average Glucose 117; Hemoglobin A1C 5.7 % (4.0-6.0)
[2022-09-03 13:55] LABS: Alanine Aminotransferase 10 U/L (0-33); Albumin Level 4.1 g/dL (3.5-5.2); Alkaline Phosphatase 74 U/L (35-105); Anion Gap 16.8 (5-19); Aspartate Amino Transferase 15 U/L (0-32); Blood Urea Nitrogen 17 mg/dL (8-23); Calcium 8.8 mg/dL (8.5-10.5); Carbon Dioxide 22 mmol/L (22-29); Chloride 105 mmol/L (98-107); Chol HDL Ratio 5.83 mg/dL (0.0-4.40); Cholesterol 245 mg/dL (0-200); Globulin 2.7 g/dL (1.3-4.6); Glucose 107 mg/dL (65-115); HDL Cholesterol 42 mg/dL (60-100); LDL Cholesterol Calculated 179 mg/dL (50-129); LDL HDL Ratio 4.26 RATIO (0.00-3.22); Osmolality Calculated 292 mOsm/kg (285-295); Potassium 3.8 mmol/L (3.5-5.1); Sodium 140 mmol/L (136-145); Total Bilirubin 0.3 mg/dL (0.15-1.2); Total Protein 6.8 g/dL (6.6-8.7); Triglycerides 122 mg/dL (0-150)
== END 2022-09-03 13:08 | disposition home or self-care (01) ==
PROVIDERS: PCP Family Medicine; Visit Provider Family Medicine
DX: I10 Essential (primary) hypertension (principal); E16.2 Hypoglycemia, unspecified; D64.9 Anemia, unspecified; E03.9 Hypothyroidism, unspecified; E78.6 Lipoprotein deficiency
CPT/HCPCS: 80053; 80061; 83036; 85025

== ENCOUNTER 2023-01-29 19:37 | Emergency (ER) | payer MEDICARE, OTHER, SELFPAY ==
[2023-01-29 19:40] VITALS: BP 164/93; PULSE 61; RESP 20; TEMP 36.9; O2SAT 95; BMI 25.1
--- NOTE | 2023-01-29 20:01 | W.ED.RECABL ---
HPI - Recheck/Abnormal Lab/Rx General: Chief Complaint: Recheck/Abnormal Lab/Rx Stated Complaint: HIGH BLOOD PRESSURE Time Seen by Provider: 01/29/23 19:41 Source: patient and EMS Mode of arrival: EMS Limitations: no limitations History of Present Illness: This 82-year-old lady was brought to the ER for evaluation of elevated blood pressure. Patient states that her blood pressure was checked at the custodial and it was high so they decided to bring her to the ER for evaluation. However, she does not know what the reading was and no one told her. She did not want to come and she tried as much as she could to talk to them out of bringing her to the ER but they still insisted because her daughter who is her guardian wanted her to come in. Patient denies headache, chest pain, shortness of breath, nausea, vomiting or any other pertinent symptoms. She states that she has been brought to this ER a few times because of elevated blood pressure and she does not want to keep coming here often. At the time of my evaluation her blood pressure was 144/76. Review of Systems Const: Denies: chills, body aches or change in appetite Eyes: Denies: change in vision or eye discharge ENMT: Denies: throat pain, dental pain or nasal discharge Card: Denies: chest pain or lightheadedness : Denies: dysuria Musc: Denies: neck pain or back pain Neuro: Denies: headache(s) or weakness in extremities Psych: Denies: depression [place]/Lymph: Denies: easy bruising All/Imm: Denies: urticaria, tongue swelling or facial swelling PFS ED PFSH: Medical History C. difficile diarrhea Chronic back pain Dementia Depression Fatigue GERD (gastroesophageal reflux disease) History of benzodiazepine use History of drug overdose History of falling History of GI bleed History of narcotic use History of suicidal ideation Hyperlipidemia Hypertension Hypokalemia Osteoarthritis Polymyalgia rheumatica Surgical History History of abdominal surgery for gastric or duodenal ulcer History of breast biopsy History of hysterectomy Family History Mother Cancer Father Cancer Family/Other Dementia Daughter Diabetes Son Diabetes Lung disease Denies family history of CAD (coronary artery disease) Clotting disorder Chronic kidney disease (CKD) Suicide Anesthesia complication Bleeding disorder Stroke Social History Smoking and tobacco/nicotine status: never used tobacco/nicotine Alcohol intake: never Substance/Drug Use: never Lives independently: No Household members: family Female Reproductive History: Para: 3 Physical Exam Const: COMMON NORMALS: no acute distress, patient oriented x3, no limitations and alert HENMT: COMMON NORMALS: normocephalic HEAD & SCALP: normocephalic Eye: COMMON NORMALS: EOMs intact bilaterally Neck/C-Spine: COMMON NORMALS: full ROM and supple Chest: COMMONS NORMALS: normal inspection of the chest Resp: COMMON NORMALS: normal respiratory effort, No retractions, No use of accessory muscles and clear to auscultation bilaterally AUSCULTATION: clear to auscultation bilaterally Cardio: COMMON NORMALS: regular rate, regular rhythm and No murmurs present (Cardio) RATE: regular rate RHYTHM: regular rhythm GI: COMMON NORMALS: Normal to inspection, nondistended, normoactive bowel sounds present and non-tender : COMMON NORMALS: Yes no CVA tenderness BLADDER/KIDNEY EXAM: Yes no CVA tenderness Back/Pelvis: COMMON NORMALS: no CVA tenderness and no thoracic nor lumbar tenderness Extremity: GENERAL: Yes normal exam except as noted Neuro: COMMON NORMALS: patient oriented x3 and no focal motor deficits SENSORIUM/ORIENTATION: Yes alert Psych: COMMON NORMALS: mental status grossly normal and cooperative Course Vital Signs: Vital signs: Vital Signs Temperature 98.4 F 01/29/23 19:40 Pulse Rate 84 01/29/23 20:31 Respiratory Rate 18 01/29/23 20:31 Blood Pressure 151/91 01/29/23 20:31 Pulse Oximetry 95 01/29/23 20:31 Oxygen Delivery Me thod Room Air 01/29/23 20:31 MDM - Recheck/Abnormal Lab/Rx Medical Decision Making Medical decision making: Patient was brought to the ER because of elevated blood pressure. She is asymptomatic and is clinically stable. Blood pressure in the ER was 144/76. Completed blood tests are unremarkable. No emergent intervention is indicated at this time. She was advised to follow-up with her primary care physician. Reasons to return were discussed. Lab Data 01/29/23 Unknown 01/29/23 Unknown Laboratory Results WBC 6.08 10^3/uL (3.29-11.43) 01/29/23 Unknown RBC 4.62 10^6/uL (3.85-5.65) 01/29/23 Unknown Hgb 13.70 g/dL (11.27-16.99) 01/29/23 Unknown Hct 44.0 % (36-47) 01/29/23 Unknown MCV 95.2 fl (85-98) 01/29/23 Unknown MCH 29.7 pg (27-33) 01/29/23 Unknown MCHC 31.1 g/dL (30-55) 01/29/23 Unknown RDW 13.2 % (12.1-15.1) 01/29/23 Unknown Plt Count 77 10^3/cmm (157-399) L 01/29/23 Unknown MPV 12.4 fL (7.4-10.4) H 01/29/23 Unknown Neut % (Auto) 45.5 % 01/29/23 Unknown Lymph % (Auto) 44.1 % 01/29/23 Unknown [place] % (Auto) 7.7 % 01/29/23 Unknown Eos % (Auto) 1.0 % 01/29/23 Unknown Baso % (Auto) 1.5 % 01/29/23 Unknown Neut # (Auto) 2.77 10^3/uL (1.8-7.7) 01/29/23 Unknown Lymph # (Auto) 2.7 10^3/uL (0.8-4.8) 01/29/23 Unknown [place] # (Auto) 0.5 10^3/uL (0.2-0.9) 01/29/23 Unknown Eos # (Auto) 0.1 10^3/uL (0.0-0.8) 01/29/23 Unknown Baso # (Auto) 0.1 10^3/uL (0.0-0.1) 01/29/23 Unknown Nucleated RBC % (auto) 0 % 01/29/23 Unknown Nucleated RBCs # 0.0 /100WBC 01/29/23 Unknown Sodium 138 mmol/L (136-145) 01/29/23 Unknown Chloride 101 mmol/L (98-107) 01/29/23 Unknown Carbon Dioxide 25 mmol/L (22-29) 01/29/23 Unknown BUN 12 mg/dL (8-23) 01/29/23 Unknown Creatinine 0.8 mg/dL (0.5-0.9) 01/29/23 Unknown GFR Calculation Not Reportable 01/29/23 Unknown Glucose 77 mg/dL (65-115) 01/29/23 Unknown Calculated Osmolality 285 mOsm/kg (285-295) 01/29/23 Unknown Calcium 9.5 mg/dL (8.5-10.5) 01/29/23 Unknown Total Bilirubin 0.3 mg/dL (0.15-1.2) 01/29/23 Unknown ALT 8 U/L (0-33) 01/29/23 Unknown Alkaline Phosphatase 85 U/L (35-105) 01/29/23 Unknown Total Protein 7.4 g/dL (6.6-8.7) 01/29/23 Unknown Albumin 4.3 g/dL (3.5-5.2) 01/29/23 Unknown Globulin 3.1 g/dL (1.3-4.6) 01/29/23 Unknown All radiology interpretation(s) finalized by discharge Discharge Plan Discharge Patient Disposition: Home Clinical Impression: Hypertension Condition: Stable Prescriptions: No Action hydroxyzine HCl 10 mg tablet 10 mg PO Q8H PRN (Reason: itching, anxiety) Qty: 30 2RF clonidine HCl 0.1 mg tablet 0.1 mg PO BID Qty: 60 5RF hydralazine 10 mg tablet 10 mg PO BID MDD 20 mg PRN (Reason: hypertension) Qty: 60 0RF Rx Instructions: BP above 160 systolic or 110 diastolic. Doses 6 hrs apart. trazodone 50 mg tablet See Rx Instructions .ROUTE .COMPLEX Qty: 14 10RF Dose Instruction: TAKE 1/2 TABLET BY MOUTH DAILY Rx Instructions: TAKE 1/2 TABLET BY MOUTH DAILY hydrocodone-acetaminophen 5-325 mg tablet 1 tab PO Q6H 30 Days Qty: 120 0RF loperamide [Imodium A-D] 2 mg Capsule 2 mg PO Q4H PRN (Reason: Diarrhea) donepezil 10 mg tablet 10 mg PO DAILY sertraline 100 mg tablet 100 mg PO DAILY pantoprazole 40 mg tablet,delayed release (DR/EC) 40 mg PO DAILY oxybutynin chloride 5 mg tablet 5 mg PO TID memantine 5 mg tablet 5 mg PO BID metoprolol tartrate 25 mg tablet 25 mg PO BID@ Tylenol 325 mg Tablet 650 mg PO QID PRN (Reason: Pain) triamcinolone acetonide 0.025 % cream 1 applic TOPICAL DAILY PRN (Reason: Itching) ferrous sulfate 325 mg (65 mg iron) Tablet 325 mg PO DAILY docusate sodium 100 mg Tablet 100 mg PO BID cholestyramine (with sugar) 4 gram Powder In Packet 4 g PO DAILY Rx Instructions: administer w/meal; avoid other meds within 1hr before or 4-6hr after dose amlodipine 10 mg tablet 10 mg PO DAILY Qty: 30 0RF Discharge Orders: Discharge ED (Routine); Ordered 01/29/23 Ordered By: Esteban Darling Referrals: Jc Sánchez DO [Primary Care Provider] - Discharge Diet: Usual diet Discharge Activity: Resume usual activity Patient Instructions: Opioid Safety, Pain Management Activity Restrictions/Additional Instructions: Continue taking your usual home medications. Follow-up with your primary care physician within a week for reevaluation. Return to the ER with new or worsening symptoms. Coding Level of Care Code ED Correspondence Clerk for Rashad Guzman
[2023-01-29 20:16] LABS: Basophils # 0.1 10^3/uL (0.0-0.1); Basophils % 1.5 %; Eosinophils # 0.1 10^3/uL (0.0-0.8); Lymphocytes # 2.7 10^3/uL (0.8-4.8); Lymphocytes % 44.1 %; Mean Corpuscular HGB Conc 31.1 g/dL (30-55); Mean Corpuscular Hemoglobin 29.7 pg (27-33); Mean Corpuscular Volume 95.2 fl (85-98); Mean Platelet Volume 12.4 fL (7.4-10.4); Monocytes # 0.5 10^3/uL (0.2-0.9); Monocytes % 7.7 %; Neutrophils # 2.77 10^3/uL (1.8-7.7); Neutrophils % 45.5 %; Nucleated Red Blood Cells % 0 %; Platelet Count 77 10^3/cmm (157-399); Red Blood Count 4.62 10^6/uL (3.85-5.65); Red Cell Distribution Width 13.2 % (12.1-15.1); White Blood Count 6.08 10^3/uL (3.29-11.43)
[2023-01-29 20:31] VITALS: BP 151/91; PULSE 84; RESP 18; O2SAT 95
[2023-01-29 20:39] LABS: Alanine Aminotransferase 8 U/L (0-33); Albumin Level 4.3 g/dL (3.5-5.2); Alkaline Phosphatase 85 U/L (35-105); Blood Urea Nitrogen 12 mg/dL (8-23); Calcium 9.5 mg/dL (8.5-10.5); Carbon Dioxide 25 mmol/L (22-29); Chloride 101 mmol/L (98-107); Globulin 3.1 g/dL (1.3-4.6); Glucose 77 mg/dL (65-115); Osmolality Calculated 285 mOsm/kg (285-295); Sodium 138 mmol/L (136-145); Total Bilirubin 0.3 mg/dL (0.15-1.2); Total Protein 7.4 g/dL (6.6-8.7)
[2023-01-29 20:57] VITALS: BP 147/81; PULSE 97; RESP 20; O2SAT 97
[2023-01-29 21:03] LABS: Aspartate Amino Transferase 17 U/L (0-32)
== END 2023-01-29 20:59 | disposition home or self-care (01) ==
PROVIDERS: Emergency Provider Family Medicine; PCP Family Medicine
DX: I10 Essential (primary) hypertension (principal); F03.90 Unspecified dementia, unspecified severity, without behavioral disturbance, psychotic disturbance, mood disturbance, and anxiety; E78.5 Hyperlipidemia, unspecified
CPT/HCPCS: 80053; 85025; 99283

== ENCOUNTER 2023-03-16 19:49 | Outpatient (CLI) | payer MEDICARE, OTHER, SELFPAY ==
[2023-03-16 19:57] LABS: Urine Appearance Cloudy (CLEAR); Urine Color Light yellow (Yellow)
[2023-03-16 19:58] LABS: Blood Urine 2+ (Negative); Glucose Urine UA Norm (Normal); Ketones Urine Negative (Negative); Nitrate Urine Positive (Negative); Protein Urine Neg (Negative); Specific Gravity, Urine 1.015 (1.005-1.030); pH Urine 7 (5-7)
[2023-03-16 19:59] LABS: Add Urine Microscopic? YES; Bilirubin Urine Neg (Negative); Leukocyte Esterase Urine 2+ (Negative); Urobilinogen Urine Norm (Negative)
[2023-03-16 20:17] LABS: Add Urine Culture? Yes; Bacteria Urine 3+ /hpf; Mucus Urine 2+ /hpf; WBC Urine TOO NUMEROUS TO CNT /hpf (0-5)
== END 2023-03-16 19:50 | disposition home or self-care (01) ==
PROVIDERS: PCP Family Medicine; Visit Provider Family Medicine
DX: Z01.89 Encounter for other specified special examinations (principal)
CPT/HCPCS: 81001; 87077; 87086; 87186

== ENCOUNTER 2023-04-26 13:14 | Emergency (ER) | payer MEDICARE, OTHER, SELFPAY ==
[2023-04-26 13:19] VITALS: BP 170/100; PULSE 59; RESP 16; TEMP 37.2; O2SAT 99; BMI 24.3
[2023-04-26] MEDS: HYDROcodone-acetaminophen 10-325 mg Tablet 1 TAB PO (16:05)
[2023-04-26 16:36] LABS: Basophils # 0.1 10^3/uL (0.0-0.1); Basophils % 0.9 %; Eosinophils % 0.4 %; Hematocrit 36.6 % (36-47); Lymphocytes # 1.6 10^3/uL (0.8-4.8); Lymphocytes % 29.3 %; Mean Corpuscular HGB Conc 33.6 g/dL (30-55); Mean Corpuscular Hemoglobin 29.6 pg (27-33); Mean Corpuscular Volume 88.2 fl (85-98); Mean Platelet Volume 11.4 fL (7.4-10.4); Monocytes # 0.3 10^3/uL (0.2-0.9); Monocytes % 5.6 %; Neutrophils # 3.41 10^3/uL (1.8-7.7); Neutrophils % 63.6 %; Nucleated Red Blood Cells % 0 %; Platelet Count 217 10^3/cmm (157-399); Red Blood Count 4.15 10^6/uL (3.85-5.65); Red Cell Distribution Width 12.6 % (12.1-15.1); White Blood Count 5.36 10^3/uL (3.29-11.43)
[2023-04-26 16:52] LABS: Alanine Aminotransferase 7 U/L (0-33); Albumin Level 4.1 g/dL (3.5-5.2); Alkaline Phosphatase 71 U/L (35-105); Anion Gap 16.6 (5-19); Aspartate Amino Transferase 17 U/L (0-32); Blood Urea Nitrogen 12 mg/dL (8-23); Calcium 9.2 mg/dL (8.5-10.5); Carbon Dioxide 23 mmol/L (22-29); Chloride 103 mmol/L (98-107); Globulin 2.9 g/dL (1.3-4.6); Glucose 115 mg/dL (65-115); Osmolality Calculated 289 mOsm/kg (285-295); Potassium 3.6 mmol/L (3.5-5.1); Sodium 139 mmol/L (136-145); Total Bilirubin 0.4 mg/dL (0.15-1.2)
--- NOTE | 2023-04-26 17:03 | ED_ITS ---
HPI - Back Pain/Injury 2 General: Chief Complaint: Back Pain/Injury Stated Complaint: back pain Time Seen by Provider: 04/26/23 15:41 History of Present Illness: 82-year-old female presents emergency de partment via EMS personnel from [facility]. She states that the facility has told her they have been out of her pain medications for the previous 4 days. She states she has chronic back pain and the pain is unbearable. She states that pain is a 8 out of 10 at present. She states that she fell several years ago and broke her back and that is why she takes chronic pain medications. She has no additional complaints other than worsening of her chronic back pain from not receiving her pain medications. Review of Systems 2 General: Reports: 10 or more systems reviewed and unremarkable except in HPI and below Musc: Reports: back pain PFS ED 2 PFSH: Medical History C. difficile diarrhea Chronic back pain Dementia Depression Fatigue GERD (gastroesophageal reflux disease) History of benzodiazepine use History of drug overdose History of falling History of GI bleed History of narcotic use History of suicidal ideation Hyperlipidemia Hypertension Hypokalemia Osteoarthritis Polymyalgia rheumatica Surgical History History of abdominal surgery for gastric or duodenal ulcer History of breast biopsy History of hysterectomy Family History Mother Cancer Father Cancer Family/Other Dementia Daughter Diabetes Son Diabetes Lung disease Denies family history of CAD (coronary artery disease) Clotting disorder Chronic kidney disease (CKD) Suicide Anesthesia complication Bleeding disorder Stroke Social History Smoking and tobacco/nicotine status: never used tobacco/nicotine Alcohol intake: never Substance/Drug Use: never Lives independently: No Household members: family Female Reproductive History: Para: 3 Physical Exam 2 Narrative: EXAM NARRATIVE: Constitutional: the patient appears well nourished and with normal development. Vital signs reviewed as documented. No acute distress, GCS 15 HENMT: Normocephalic, atraumatic. External ears normal appearance without drainage. Nose without drainage, normal appearance. Mucus membranes moist. Neck is supple, No jugular venous distension, trachea is midline, no appreciable carotid bruits. No lymphadenopathy. No meningeal signs. Flexion, extension and lateral rotation is without pain. Eyes: Pupils are equal, round, reactive to light and accommodation. No scleral icterus. Extra-ocular movement are intact. Thorax is symmetrical and with equal rise and fall with respirations. Resp: Lungs are clear to auscultation. No wheezes, rales, crackles or ronchi at present. Cardio: Regular rate and rhythm. Positive S1, S2. No appreciable murmurs, rubs or gallops. GI: Abdominal exam reveals normal bowel sounds to all quadrants. No organomegaly. No obvious palpable masses noted. No hepatomegally appreciated. Soft, non-tender to palpation. Extremity: Extremities are non-edematous and both femoral and pedal pulses are 2+ and equal bilaterally. Moves all extremities well, sensation in all extremities. Neuro: Alert and oriented x4, person, place, time and situation. Cranial nerves II through XII are grossly intact, there is no focal neurological deficits that I can appreciate at present. Motor strength in the upper and lower extremities are equal and bilateral 5/5. Psych: Cooperative, calm, normal thought process, appropriate judgment. Skin: No lesions, rashes. No gross abnormalities noted. Back: Symmetrical, no obvious deformity, No CVA tenderness Course 2 Vital Signs: Vital signs: Vital Signs Temperature 98.9 F 04/26/23 13:19 Pulse Rate 59 L 04/26/23 13:19 Respiratory Rate 16 04/26/23 13:19 Blood Pressure 170/100 04/26/23 13:19 Pulse Oximetry 98 04/26/23 17:22 Oxygen Delivery Me thod Room Air 04/26/23 17:22 MDM - Back Pain/Injury Medical Decision Making 82-year-old female presents from long-term care facility via EMS stating that she is out of her pain medications from her long-term care facility. I did provide her p.o. pain medication while here in the emergency department as well as laboratory evaluation I will discharge her with a written prescription and have the patient discuss additional pain medications with her long-term care facility supervising physician. Medical Records I reviewed the patient's medical records. Labs I reviewed the patient's lab results. 04/26/23 16:28 04/26/23 16:28 Laboratory Results WBC 5.36 10^3/uL (3.29-11.43) 04/26/23 16: RBC 4.15 10^6/uL (3.85-5.65) 04/26/23 16: Hgb 12.30 g/dL (11.27-16.99) 04/26/23 16: Hct 36.6 % (36-47) 04/26/23 16: MCV 88.2 fl (85-98) 04/26/23 16: MCH 29.6 pg (27-33) 04/26/23 16: MCHC 33.6 g/dL (30-55) 04/26/23 16: RDW 12.6 % (12.1-15.1) 04/26/23: Plt Count 217 10^3/cmm (157-399) 04/26/23 16: MPV 11.4 fL (7.4-10.4) H 04/26/23: Neut % (Auto) 63.6 % 04/26/23: Lymph % (Auto) 29.3 % 04/26/23 16: [place] % (Auto) 5.6 % 04/26/23: Eos % (Auto) 0.4 % 04/26/23: Baso % (Auto) 0.9 % 04/26/23: Neut # (Auto) 3.41 10^3/uL (1.8-7.7) 04/26/23: Lymph # (Auto) 1.6 10^3/uL (0.8-4.8) 04/26/23: [place] # (Auto) 0.3 10^3/uL (0.2-0.9) 04/26/23: Eos # (Auto) 0.0 10^3/uL (0.0-0.8) 04/26/23: Baso # (Auto) 0.1 10^3/uL (0.0-0.1) 04/26/23: Nucleated RBC % (auto) 0 % 04/26/23: Nucleated RBCs # 0.0 /100WBC 04/26/23 16: Sodium 139 mmol/L (136-145) 04/26/23 16:28 Potassium 3.6 mmol/L (3.5-5.1) 04/26/23 16:28 Chloride 103 mmol/L (98-107) 04/26/23 16:28 Carbon Dioxide 23 mmol/L (22-29) 04/26/23 16:28 Anion Gap 16.6 (5-19) 04/26/23 16:28 BUN 12 mg/dL (8-23) 04/26/23 16:28 Creatinine 0.8 mg/dL (0.5-0.9) 04/26/23 16:28 GFR Calculation Not Reportable 04/26/23 16:28 Glucose 115 mg/dL (65-115) 04/26/23 16:28 Calculated Osmolality 289 mOsm/kg (285-295) 04/26/23 16:28 Calcium 9.2 mg/dL (8.5-10.5) 04/26/23 16:28 Total Bilirubin 0.4 mg/dL (0.15-1.2) 04/26/23 16:28 AST 17 U/L (0-32) 04/26/23 16:28 ALT 7 U/L (0-33) 04/26/23 16:28 Alkaline Phosphatase 71 U/L (35-105) 04/26/23 16:28 Total Protein 7.0 g/dL (6.6-8.7) 04/26/23 16:28 Albumin 4.1 g/dL (3.5-5.2) 04/26/23 16:28 Globulin 2.9 g/dL (1.3-4.6) 04/26/23 16:28 Urine Color Yellow (Yellow) 04/26/23 16:50 Urine Appearance Clear (CLEAR) 04/26/23 16:50 Urine pH 5 (5-7) 04/26/23 16:50 Ur Specific [place] 1.015 (1.005-1.030) 04/26/23 16:50 Urine Protein Trace (Negative) 04/26/23 16:50 Urine Glucose (UA) Norm (Normal) 04/26/23 16:50 Urine Ketones 1+ (Negative) H 04/26/23 16:50 Urine Blood 2+ (Negative) H 04/26/23 16:50 Urine Nitrate Negative (Negative) 04/26/23 16:50 Urine Bilirubin 1+ (Negative) H 04/26/23 16:50 Urine Urobilinogen 1 mg/dL (Negative) H 04/26/23 16:50 Ur Leukocyte Esterase Negative (Negative) 04/26/23 16:50 Urine RBC 0-4 /hpf (0-2) H 04/26/23 16:50 Urine WBC 0-4 /hpf (0-5) H 04/26/23 16:50 Ur Squamous Epith Cells 0-4 /hpf (0-5) H 04/26/23 16:50 Amorphous Sediment Not Reportable 04/26/23 16:50 Urine Bacteria Trace /hpf (NONE) 04/26/23 16:50 Hyaline Casts 0-4 /lpf H 04/26/23 16:50 Urine Mucus 1+ /hpf 04/26/23 16:50 No radiology studies performed this visit Discharge Plan Discharge Patient Disposition: Home Clinical Impression: Chronic back pain Qualifiers: Back pain location: low back pain Back pain laterality: bilateral Sciatica presence: with sciatica Sciatica laterality: sciatica of right side Qualified Code(s): M54.41 - Lumbago with sciatica, right side Condition: Stable Prescriptions: New hydrocodone-acetaminophen 5-325 mg tablet 1 tab PO Q8H PRN (Reason: pain) Qty: 14 0RF No Action hydroxyzine HCl 10 mg tablet 10 mg PO Q8H PRN (Reason: itching, anxiety) Qty: 30 2RF clonidine HCl 0.1 mg tablet 0.1 mg PO BID Qty: 60 5RF hydralazine 10 mg tablet 10 mg PO BID MDD 20 mg PRN (Reason: hypertension) Qty: 60 0RF Rx Instructions: BP above 160 systolic or 110 diastolic. Doses 6 hrs apart. trazodone 50 mg tablet See Rx Instructions .ROUTE .COMPLEX Qty: 14 10RF Dose Instruction: TAKE 1/2 TABLET BY MOUTH DAILY Rx Instructions: TAKE 1/2 TABLET BY MOUTH DAILY ciprofloxacin HCl 500 mg tablet 500 mg PO Q12H 10 Days Qty: 20 0RF hydrocodone-acetaminophen 7.5-325 mg tablet 1 tab PO Q6H 30 Days Qty: 120 0RF loperamide [Imodium A-D] 2 mg Capsule 2 mg PO Q4H PRN (Reason: Diarrhea) donepezil 10 mg tablet 10 mg PO DAILY sertraline 100 mg tablet 100 mg PO DAILY pantoprazole 40 mg tablet,delayed release (DR/EC) 40 mg PO DAILY oxybutynin chloride 5 mg tablet 5 mg PO TID memantine 5 mg tablet 5 mg PO BID metoprolol tartrate 25 mg tablet 25 mg PO BID@ Tylenol 325 mg Tablet 650 mg PO QID PRN (Reason: Pain) triamcinolone acetonide 0.025 % cream 1 applic TOPICAL DAILY PRN (Reason: Itching) ferrous sulfate 325 mg (65 mg iron) Tablet 325 mg PO DAILY docusate sodium 100 mg Tablet 100 mg PO BID cholestyramine (with sugar) 4 gram Powder In Packet 4 g PO DAILY Rx Instructions: administer w/meal; avoid other meds within 1hr before or 4-6hr after dose amlodipine 10 mg tablet 10 mg PO DAILY Qty: 30 0RF Discharge Orders: Discharge ED (Routine); Ordered 04/26/23 Ordered By: Peyman Cervantes Referrals: Jc Sánchez DO [Primary Care Provider] - Discharge Diet: Advance as tolerated Discharge Activity: Resume usual activity Patient Instructions: Opioid Safety, Pain Management Coding Level of Care Code ED Supervisor Dental Laboratory for Rashad Guzman
[2023-04-26 17:22] VITALS: O2SAT 98
[2023-04-26 18:06] LABS: Specific Gravity, Urine 1.015 (1.005-1.030); Urine Appearance Clear (CLEAR); Urine Color Yellow (Yellow); pH Urine 5 (5-7)
[2023-04-26 18:07] LABS: Bacteria Urine TRACE /hpf; Bilirubin Urine 1+ (Negative); Blood Urine 2+ (Negative); Glucose Urine UA Norm (Normal); Hyaline Casts Urine 0-4 /lpf; Ketones Urine 1+ (Negative); Leukocyte Esterase Urine Negative (Negative); Mucus Urine 1+ /hpf; Nitrate Urine Negative (Negative); Protein Urine Trace (Negative); RBC Urine 0-4 /hpf (0-2); Squamous Epithelial Cell Urine 0-4 /hpf (0-5); Urobilinogen Urine 1 mg/dL (Negative); WBC Urine 0-4 /hpf (0-5)
[2023-04-26 18:08] LABS: Add Urine Culture? No
== END 2023-04-26 18:11 | disposition home or self-care (01) ==
PROVIDERS: Emergency Provider Internal Medicine; PCP Family Medicine
DX: G89.29 Other chronic pain (principal); M54.41 Lumbago with sciatica, right side; F03.90 Unspecified dementia, unspecified severity, without behavioral disturbance, psychotic disturbance, mood disturbance, and anxiety; E78.5 Hyperlipidemia, unspecified; I10 Essential (primary) hypertension
CPT/HCPCS: 36415; 80053; 81001; 85025; 99283

== ENCOUNTER 2023-07-22 08:06 | Outpatient (CLI) | payer MEDICARE, OTHER, SELFPAY ==
[2023-07-22 08:55] LABS: Basophils # 0.1 10^3/uL (0.0-0.1); Basophils % 1.1 %; Eosinophils # 0.1 10^3/uL (0.0-0.8); Eosinophils % 2.5 %; Hematocrit 35.3 % (36-47); Lymphocytes # 1.9 10^3/uL (0.8-4.8); Lymphocytes % 41.9 %; Mean Corpuscular HGB Conc 33.1 g/dL (30-55); Mean Corpuscular Hemoglobin 29.6 pg (27-33); Mean Corpuscular Volume 89.4 fl (85-98); Mean Platelet Volume 11.4 fL (7.4-10.4); Monocytes # 0.4 10^3/uL (0.2-0.9); Neutrophils # 2.02 10^3/uL (1.8-7.7); Neutrophils % 45.3 %; Nucleated Red Blood Cells % 0 %; Platelet Count 198 10^3/cmm (157-399); Red Blood Count 3.95 10^6/uL (3.85-5.65); Red Cell Distribution Width 12.8 % (12.1-15.1); White Blood Count 4.46 10^3/uL (3.29-11.43)
[2023-07-22 09:53] LABS: 25 Hydroxy Vitamin D 16 ng/mL (30-100); Alanine Aminotransferase < 5 U/L (0-33); Albumin Level 3.7 g/dL (3.5-5.2); Alkaline Phosphatase 79 U/L (35-105); Anion Gap 13.6 (5-19); Aspartate Amino Transferase 11 U/L (0-32); Blood Urea Nitrogen 14 mg/dL (8-23); Carbon Dioxide 25 mmol/L (22-29); Chloride 108 mmol/L (98-107); Globulin 2.9 g/dL (1.3-4.6); Glucose 102 mg/dL (65-115); Osmolality Calculated 297 mOsm/kg (285-295); Potassium 3.6 mmol/L (3.5-5.1); Sodium 143 mmol/L (136-145); Thyroid Stimulating Hormone 0.95 uIU/mL (0.27-4.20); Total Bilirubin 0.2 mg/dL (0.15-1.2); Total Protein 6.6 g/dL (6.6-8.7); Vitamin B12 236 pg/mL (232-1245)
[2023-07-22 09:59] LABS: Folate Level 3.3 ng/mL (4.8-37.3)
[2023-07-22 10:13] LABS: Estmated Average Glucose 108; Hemoglobin A1C 5.4 % (4.0-6.0)
[2023-07-22 10:46] LABS: Free T4 Free Thyroxine 1.03 ng/dL (0.82-1.77)
== END 2023-07-22 08:07 | disposition home or self-care (01) ==
PROVIDERS: PCP Family Medicine; Visit Provider Family Medicine
DX: E55.9 Vitamin D deficiency, unspecified (principal); R73.09 Other abnormal glucose; R94.6 Abnormal results of thyroid function studies; I10 Essential (primary) hypertension
CPT/HCPCS: 80053; 82306; 82607; 82746; 83036; 84439; 84443; 85025

== ENCOUNTER 2023-08-14 09:50 | Emergency (ER) | payer MEDICARE, OTHER, SELFPAY ==
[2023-08-14] VITALS (29 sets, daily range): BP systolic 106–159; BP diastolic 64–89; PULSE 64–86; RESP 14–33; TEMP 36.8; O2SAT 87–95; BMI 27.7
--- NOTE | 2023-08-14 09:55 | ECG_ITS ---
[facility] Test Date: 2023-08-14 Pat Name: Sandy Jordan Department: Room: Gender: Female Manager Workers Compensation: : 1940 Requested By: Pravin Govea Order Number: [id number] Kings MD: Sanjana Chun M.D. Measurements Intervals [place] Rate: 77 P: 71 [place]: 168 QRS: 10 QRSD: 84 T: 25 QT: 384 QTc: 437 Interpretive Statements SINUS RHYTHM WITH OCCASIONAL SUPRAVENTRICULAR PREMATURE COMPLEXES NONSPECIFIC ST & T-WAVE ABNORMALITY Compared to ECG 01/30/2022 20:30:02 T-wave abnormality now present Sinus bradycardia no longer present Electronically Signed On 08-14-2023 20:17:07 CDT by Sanjana Chun M.D. [id number]
--- NOTE | 2023-08-14 10:26 | ECG_ITS ---
[facility] Test Date: 2023-08-14 Pat Name: Sandy Jordan Department: Room: Gender: Female Cleaning Porter: : 1940 Requested By: Pravin Govea Order Number: [id number] Kings MD: Sanjana Chun M.D. Measurements Intervals [place] Rate: 69 P: 89 ID: [id number] QRS: 61 QRSD: 87 T: 74 QT: 427 QTc: 458 Interpretive Statements SINUS RHYTHM WITH FREQUENT SUPRAVENTRICULAR PREMATURE COMPLEXES MINIMAL ST DEPRESSION [0.025+ mV ST DEPRESSION] ABNORMAL RHYTHM ECG Compared to ECG 01/30/2022 20:30:02 ST (T wave) deviation now present Sinus bradycardia no longer present Electronically Signed On 08-14-2023 19:54:02 CDT by Sanjana Chun M.D. [id number]
--- NOTE | 2023-08-14 10:26 | XRR_ITS ---
PROCEDURE INFORMATION: Exam: XR Chest Exam date and time: 08/14/2023 10:44 AM Age: 82 years old Clinical indication: Pain; Chest pressure; Additional info: Chest pain TECHNIQUE: Imaging protocol: Radiologic exam of the chest. Views: 1 view. COMPARISON: CR XR chest 1V portable [id number] 03/13/2021 9:32 PM FINDINGS: Lungs: Compressive atelectasis of the right lung base and small right-sided pleural effusion. Linear opacity at the mid right lung, likely may represent discoid atelectatic lung changes. Pleural spaces: No pneumothorax. Heart/Mediastinum: Mild cardiomegaly and a tortuous aorta. Diaphragm: Elevation of the right hemidiaphragm, new when compared to 03/13/2021 imaging. Bones/joints: Bilateral narrowing of the glenohumeral joints with subchondral sclerosis. Chronic multilevel degenerative changes of the thoracic vertebrae. Chronic osseous deformity of the left humeral neck, likely representing prior trauma. XR/XR chest 1V portable [id number] IMPRESSION: 1. Elevation of the right hemidiaphragm, new when compared to 03/13/2021 imaging. 2. Compressive atelectasis of the right lung base and small right-sided pleural effusion. 3. Mild cardiomegaly and a tortuous aorta.
[2023-08-14 10:32] LABS: Basophils # 0.1 10^3/uL (0.0-0.1); Eosinophils # 0.2 10^3/uL (0.0-0.8); Eosinophils % 2.5 %; Hematocrit 38.5 % (36-47); Lymphocytes # 1.2 10^3/uL (0.8-4.8); Lymphocytes % 15.2 %; Mean Corpuscular HGB Conc 32.2 g/dL (30-55); Mean Corpuscular Hemoglobin 28.8 pg (27-33); Mean Corpuscular Volume 89.5 fl (85-98); Mean Platelet Volume 11.8 fL (7.4-10.4); Monocytes # 0.7 10^3/uL (0.2-0.9); Neutrophils # 5.96 10^3/uL (1.8-7.7); Neutrophils % 73.1 %; Nucleated Red Blood Cells % 0 %; Platelet Count 326 10^3/cmm (157-399); Red Cell Distribution Width 12.1 % (12.1-15.1); White Blood Count 8.15 10^3/uL (3.29-11.43)
[2023-08-14 10:43] LABS: Anion Gap 16.7 (5-19); Blood Urea Nitrogen 19 mg/dL (8-23); Calcium 9.3 mg/dL (8.5-10.5); Carbon Dioxide 24 mmol/L (22-29); Chloride 99 mmol/L (98-107); Glucose 148 mg/dL (65-115); Osmolality Calculated 287 mOsm/kg (285-295); Potassium 3.7 mmol/L (3.5-5.1); Sodium 136 mmol/L (136-145)
[2023-08-14 10:45] LABS: Troponin(5th) Baseline 14 ng/L (0-10)
--- NOTE | 2023-08-14 10:51 | ED_ITS ---
HPI - Chest Pain 2 General: Chief Complaint: Chest Pain Stated Complaint: CHEST PAIN Time Seen by Provider: 08/14/23 09:54 Source: patient Mode of arrival: ambulatory History of Present Illness: Patient comes in complaining of chest pain and shortness of breath from the assisted living. This is living reported to EMS that she had some shortness of breath however patient denies this. Not on any O2 on baseline and currently satting well on room air here. History is somewhat limited by patient's dementia and has brought on by EMS and carried through actually from the assisted living staff. Patient does complain of some sternal wall tenderness and is asking for pain medication. Per her MAR she did receive her normal dose of [place] 7.5 8:30 AM as well as Lyrica. They also report that her baseline status is that she can ambulate to the restroom but she chooses to mostly laying in bed all day long. MD complaint: chest pain Review of Systems 2 General: Reports: ROS unobtainable due to mental status (dementia) PFS ED 2 PFSH: Medical History C. difficile diarrhea Chronic back pain Dementia Depression Fatigue GERD (gastroesophageal reflux disease) History of benzodiazepine use History of drug overdose History of falling History of GI bleed History of narcotic use History of suicidal ideation Hyperlipidemia Hypertension Hypokalemia Osteoarthritis Polymyalgia rheumatica Surgical History History of abdominal surgery for gastric or duodenal ulcer History of breast biopsy History of hysterectomy Family History Mother Cancer Father Cancer Family/Other Dementia Daughter Diabetes Son Diabetes Lung disease Denies family history of CAD (coronary artery disease) Clotting disorder Chronic kidney disease (CKD) Suicide Anesthesia complication Bleeding disorder Stroke Social History Smoking and tobacco/nicotine status: never used tobacco/nicotine Alcohol intake: never Substance/Drug Use: never Lives independently: No Household members: family Female Reproductive History: Para: 3 Physical Exam 2 Const: COMMON NORMALS: no acute distress, average body habitus, patient oriented x3, healthy appearing, alert and well nourished GENERAL APPEARANCE: well kempt and well developed HENMT: COMMON NORMALS: normocephalic, atraumatic, external ears normal and moist oral mucous membranes HEAD & SCALP: normocephalic and atraumatic E XTERNAL EAR: Yes external ears normal Eye: COMMON NORMALS: Equal, round and reactive pupils present, EOMs intact bilaterally and conjunctivae normal CONJUNCTIVA: Yes conjunctivae normal P UPIL: Yes Equal, round and reactive pupils present Neck/C-Spine: COMMON NORMALS: full ROM, no lymphadenopathy and supple Chest: CHEST: Yes Symmetrical chest wall rise and No Surgical scars present (Chest) OTHER: Tenderness on palpation of the sternum Resp: COMMON NORMALS: normal respiratory effort, No retractions, No use of accessory muscles and clear to auscultation bilaterally AUSCULTATION: clear to auscultation bilaterally Cardio: COMMON NORMALS: regular rate, regular rhythm, S1 normal heart sound present, S2 normal heart sound present, No gallops present (Cardio), No clicks present (Cardio), No murmurs present (Cardio) and No rub (Cardio) RATE: r egular rate RHYTHM: regular rhythm HEART SOUNDS: S1 normal heart sound present, S2 normal heart sound present and no murmurs PERIPHERAL PULSES: o ther (Radial pulses 2+ and symmetric) GI: COMMON NORMALS: Soft to palpation, non-tender and no masses INSPECTION: No abdominal distension PALPATION: Yes Soft to palpation, No Guarding due to palpation present (GI) and No Rebound tenderness present : COMMON NORMALS: Yes no CVA tenderness BLADDER/KIDNEY EXAM: Yes no CVA tenderness Back/Pelvis: COMMON NORMALS: no CVA tenderness Extremity: COMMON NORMALS: normal to inspection, full ROM, capillary refill normal and no clubbing, cyanosis or edema Neuro: COMMON NORMALS: patient oriented x3 SENSORIUM/ORIENTATION: Yes alert Psych: APPEARANCE: Yes well kempt Skin: COMMON NORMALS: no rashes or lesions noted, no wounds, turgor normal and no jaundice GENERAL SKIN EXAM: no rashes or lesions noted and turgor normal Course 2 Vital Signs: Vital signs: Vital Signs Temperature 98.2 F 08/14/23 09:51 Pulse Rate 73 08/14/23 13:30 Respiratory Rate 30 H 08/14/23 13:30 Blood Pressure 140/80 08/14/23 13:30 Pulse Oximetry 91 08/14/23 13:30 Oxygen Delivery Me thod Room Air 08/14/23 09:51 MDM - Chest Pain Medical Decision Making Patient found to have elevated right hemidiaphragm with a small pleural effusion may be causing her shortness of breath and increased chest pain. However patient's O2 remains normal on room air that is low normal. However her dynamic needs not that much based on the description from the outside facility. Patient will be discharged with a temporary prescription for Lasix for 1 week and needs a follow-up primary care within 1 week. Care has been discussed with the patient although she has severe dementia. Nurse to call report to outside facility. Differential Diagnosis Likely acute massive pulmonary embolism and acute myocardial infarction Medical Records I reviewed the patient's medical records. Lab Data I reviewed the patient's lab results. 08/14/23 10:21 08/14/23 10:21 Radiology Impressions Chest X-Ray 08/14/23 10:26 IMPRESSION: 1. Elevation of the right hemidiaphragm, new when compared to 03/13/2021 imaging. 2. Compressive atelectasis of the right lung base and small right-sided pleural effusion. 3. Mild cardiomegaly and a tortuous aorta. Laboratory Results WBC 8.15 10^3/uL (3.29-11.43) 08/14/23 10:21 RBC 4.30 10^6/uL (3.85-5.65) 08/14/23 10:21 Hgb 12.40 g/dL (11.27-16.99) 08/14/23 10:21 Hct 38.5 % (36-47) 08/14/23 10:21 MCV 89.5 fl (85-98) 08/14/23 10:21 MCH 28.8 pg (27-33) 08/14/23 10:21 MCHC 32.2 g/dL (30-55) 08/14/23 10:21 RDW 12.1 % (12.1-15.1) 08/14/23 10:21 Plt Count 326 10^3/cmm (157-399) 08/14/23 10:21 MPV 11.8 fL (7.4-10.4) H 08/14/23 10:21 Neut % (Auto) 73.1 % 08/14/23 10:21 Lymph % (Auto) 15.2 % 08/14/23 10:21 [place] % (Auto) 8.0 % 08/14/23 10:21 Eos % (Auto) 2.5 % 08/14/23 10:21 Baso % (Auto) 1.0 % 08/14/23 10:21 Neut # (Auto) 5.96 10^3/uL (1.8-7.7) 08/14/23 10:21 Lymph # (Auto) 1.2 10^3/uL (0.8-4.8) 08/14/23 10:21 [place] # (Auto) 0.7 10^3/uL (0.2-0.9) 08/14/23 10:21 Eos # (Auto) 0.2 10^3/uL (0.0-0.8) 08/14/23 10:21 Baso # (Auto) 0.1 10^3/uL (0.0-0.1) 08/14/23 10:21 Nucleated RBC % (auto) 0 % 08/14/23 10:21 Nucleated RBCs # 0.0 /100WBC 08/14/23 10:21 Sodium 136 mmol/L (136-145) 08/14/23 10:21 Potassium 3.7 mmol/L (3.5-5.1) 08/14/23 10:21 Chloride 99 mmol/L (98-107) 08/14/23 10:21 Carbon Dioxide 24 mmol/L (22-29) 08/14/23 10:21 Anion Gap 16.7 (5-19) 08/14/23 10:21 BUN 19 mg/dL (8-23) 08/14/23 10:21 Creatinine 0.9 mg/dL (0.5-0.9) 08/14/23 10:21 GFR Calculation Not Reportable 08/14/23 10:21 Glucose 148 mg/dL (65-115) H 08/14/23 10:21 Calculated Osmolality 287 mOsm/kg (285-295) 08/14/23 10:21 Calcium 9.3 mg/dL (8.5-10.5) 08/14/23 10:21 Troponin T Baseline 14 ng/L (0-10) H 08/14/23 10:21 Troponin T 120 Minute 14.09 ng/L (0-10) H 08/14/23 12:03 Delta Troponin T 0.09 ABS# (0-10) 08/14/23 12:03 NT-Pro-B Natriuret Pep 1014 pg/mL (0-450) H 08/14/23 10:21 All radiology interpretation(s) finalized by discharge ED provider radiology interpretation(s): X-ray personally reviewed and shows full effusion versus elevating diaphragm. Awaiting radiology read. Finalized before discharge and agree with elevated diaphragm and small pleural effusion. Discharge Plan Discharge Patient Disposition: Home Clinical Impression: Pleural effusion on right, Lives in assisted living facility Condition: Stable Prescriptions: New Lasix 20 mg tablet 20 mg PO DAILY 7 Days Qty: 7 0RF No Action hydroxyzine HCl 10 mg tablet 10 mg PO Q8H PRN (Reason: itching, anxiety) Qty: 30 2RF clonidine HCl 0.1 mg tablet 0.1 mg PO BID Qty: 60 5RF hydralazine 10 mg tablet 10 mg PO BID MDD 20 mg PRN (Reason: hypertension) Qty: 60 0RF Rx Instructions: BP above 160 systolic or 110 diastolic. Doses 6 hrs apart. pregabalin [Lyrica] 25 mg capsule 25 mg PO TID Qty: 90 5RF hydrocodone-acetaminophen 7.5-325 mg tablet 1 tab PO Q6H 30 Days Qty: 120 0RF vitamin D3-folic acid 125 mcg (5,000 unit)-1 mg tablet 1 tab PO DAILY Qty: 30 2RF donepezil 10 mg tablet 10 mg PO BEDTIME sertraline 100 mg tablet 100 mg PO DAILY pantoprazole 40 mg tablet,delayed release (DR/EC) 40 mg PO DAILY oxybutynin chloride 5 mg tablet 5 mg PO TID memantine 5 mg tablet 5 mg PO BID metoprolol tartrate 25 mg tablet 25 mg PO BID@ ibuprofen 600 mg Tablet 600 mg PO Q6H PRN (Reason: Pain) trazodone 50 mg tablet 25 mg PO QPM acetaminophen [Tylenol] 325 mg Tablet 650 mg PO QID PRN (Reason: Pain) triamcinolone acetonide 0.025 % cream 1 applic TOPICAL DAILY PRN (Reason: Itching) ferrous sulfate 325 mg (65 mg iron) Tablet 325 mg PO DAILY docusate sodium 100 mg Tablet 100 mg PO BID amlodipine 10 mg tablet 10 mg PO DAILY Qty: 30 0RF Discharge Orders: Discharge ED (Routine); Ordered 08/14/23 Ordered By: Pravin Govea Referrals: Jc Sánchez, [Primary Care Provider] - Discharge Diet: Usual diet Discharge Activity: Resume usual activity Patient Instructions: Pleural Effusion (DC) Activity Restrictions/Additional Instructions: Please follow-up with your primary care within 7 days Coding Level of Care Code ED Educational Speech Language Clinician for Rashad Guzman
[2023-08-14] MEDS: ketorolac 30 mg/mL INJ 15 MG IVP (11:14)
[2023-08-14 11:57] LABS: NT Pro B Type Natriuretic Pept 1014 pg/mL (0-450)
[2023-08-14 12:25] LABS: Troponin 5 2HR 14.09 ng/L (0-10); Troponin 5 2HR Delta 0.09 ABS# (0-10)
[2023-08-14] MEDS: HYDROcodone-acetaminophen 5-325 mg Tablet 1 TAB PO (15:10)
== END 2023-08-14 15:31 | disposition home or self-care (01) ==
PROVIDERS: Emergency Provider Emergency Medicine; PCP Family Medicine
DX: J90 Pleural effusion, not elsewhere classified (principal); F03.90 Unspecified dementia, unspecified severity, without behavioral disturbance, psychotic disturbance, mood disturbance, and anxiety; E78.5 Hyperlipidemia, unspecified; I10 Essential (primary) hypertension
CPT/HCPCS: 36415; 71045; 80048; 83880; 84484; 85025; 93005; 96374; 99285; J1885

== ENCOUNTER 2023-08-20 07:44 | Inpatient (IN) | payer MEDICARE, OTHER, SELFPAY ==
[2023-08-20] VITALS (14 sets, daily range): BP systolic 114–162; BP diastolic 67–95; PULSE 81–110; RESP 17–35; TEMP 36.3–36.8; O2SAT 89–96; BMI 26.1
--- NOTE | 2023-08-20 07:50 | XR_ITS ---
WS: [id number] Portable AP upright chest, 08/20/2023 Clinical Data: chest pain Comparison: Portable chest, 08/14/2023 Findings: The right pleural effusion has increased. There is still elevation of the right diaphragm. There is a patchy opacity in the right midlung. The left lung shows minimal peripheral patchy opaciti es.. The heart is enlarged. No pneumothorax is seen. The aortic arch and descending thoracic aorta sh ow calcification and tortuosity. There is a healed fracture of the left humeral neck and head. XR/XR chest 1V portable [id number] Impression: 1. Increase in right pleural effusion. 2. Probable atelectasis and/or possible right mid lung pneumonia with elevation of the right diaphragm. 3. Atherosclerosis and cardiomegaly.
--- NOTE | 2023-08-20 07:52 | ECG_ITS ---
[facility] Test Date: 2023-08-20 Pat Name: Sandy Jordan Department: Room: Gender: Female Frame Opener: : 1940 Requested By: Tee Anthony Order Number: [id number] Kings MD: Blake Payne M.D. Measurements Intervals [place] Rate: 101 P: 54 ME: 147 QRS: 15 QRSD: 91 T: 23 QT: 359 QTc: 466 Interpretive Statements SINUS TACHYCARDIA WITH OCCASIONAL SUPRAVENTRICULAR PREMATURE COMPLEXES SIGNIFICANT ST DEPRESSION consistent with cardiac ischemia Abnormal EKG Electronically Signed On 08-20-2023 8:14:32 CDT by Blake Payne M.D. [id number] f
--- NOTE | 2023-08-20 08:03 | ED_ITS ---
HPI - Chest Pain 2 General: Chief Complaint: Chest Pain Stated Complaint: chest pain Time Seen by Provider: 08/20/23 07:46 Source: patient Mode of arrival: ambulatory History of Present Illness: 82-year-old female presents to the emerg ency room with complaints of chest pain. She rates her pain as a 7 out of 10 in the central chest radiating up into her neck and shoulder. She does have a history of dementia according to nurse note she lives at [place] her she tells me she lives at home alone and is her own caregiver she states she does use a walker occasionally when she leaves the home. She seems somewhat short of breath and came to see her she was on 2 L of oxygen she reports that EMS had started back that she normally does not use oxygen trial on room air she desatted to the low 90s. No history of coronary artery disease no previous stents or bypass. She was seen 2 days ago with similar complaint cardiac enzymes at that time were normal her initial EKG shows some ST depression in V3 through V6. She had similar depression but it resolved at the previous ER visit MD complaint: chest pain Associated symptoms: Deny abdominal pain, dyspnea or fever(s) Review of Systems 2 Const: Denies: fever(s) or chills Card: Denies: chest pain Resp: Denies: dyspnea GI: Denies: abdominal pain : Denies: dysuria, urinary frequency or urinary urgency Musc: Denies: neck pain or back pain Skin/Breast: Denies: rash PFSH ED 2 PFSH: Medical History (Updated 08/20/23 @ 12:56 by Tee Granados DO) Malaise Overactive bladder C. difficile diarrhea Hyperlipidemia Fatigue Hypokalemia History of falling History of benzodiazepine use History of suicidal ideation History of narcotic use Chronic back pain Polymyalgia rheumatica History of GI bleed Osteoarthritis GERD (gastroesophageal reflux disease) Dementia Hypertension History of drug overdose Depression Surgical History (Updated 08/20/23 @ 12:25 by Alban Mccloud MD) Hx of tubal ligation History of abdominal surgery for gastric or duodenal ulcer History of breast biopsy History of hysterectomy Family History Mother Cancer Father Cancer Family/Other Dementia Daughter Diabetes Son Diabetes Lung disease Denies family history of CAD (coronary artery disease) Clotting disorder Chronic kidney disease (CKD) Suicide Anesthesia complication Bleeding disorder Stroke Social History Smoking and tobacco/nicotine status: never used tobacco/nicotine Alcohol intake: never Substance/Drug Use: never Lives independently: No Household members: family Female Reproductive History: Para: 3 Physical Exam 2 Const: GENERAL APPEARANCE: cooperative and comfortable O RIENTATION/CONSCIOUSNESS: Yes awake HENMT: COMMON NORMALS: normocephalic, atraumatic and hearing grossly normal bilaterally HEAD & SCALP: normocephalic and atraumatic Resp: COMMON NORMALS: normal respiratory effort, No retractions, No use of accessory muscles and clear to auscultation bilaterally AUSCULTATION: clear to auscultation bilaterally Cardio: COMMON NORMALS: regular rate, regular rhythm and No murmurs present (Cardio) RATE: regular rate RHYTHM: regular rhythm GI: COMMON NORMALS: Soft to palpation and No hepatosplenomegaly present A USCULTATION: Yes normoactive bowel sounds PALPATION: Yes Soft to palpation, No Tenderness to palpation present (GI), No Guarding due to palpation present (GI) and Yes No hepatosplenomegaly present Extremity: COMMON NORMALS: normal to inspection, capillary refill normal, no clubbing, cyanosis or edema, no calf tenderness and no pedal edema Skin: COMMON NORMALS: no rashes or lesions noted GENERAL SKIN EXAM: no rashes or lesions noted Course 2 Vital Signs: Vital signs: Vital Signs Temperature 98.2 F 08/20/23 07:55 Pulse Rate 104 H 08/20/23 10:30 Respiratory Rate 20 H 08/20/23 10:30 Blood Pressure 162/95 08/20/23 10:30 Pulse Oximetry 90 08/20/23 10:30 Oxygen Delivery Me thod Nasal Cannula 08/20/23 10:30 Oxygen Flow Rate 2 08/20/23 10:30 MDM - Chest Pain Medical Decision Making Initial EKG has some lateral ST depression this is improved since arrival. Troponins did not trend positive. Discussion with the family patient has been here couple times complaining of chest pain she is in mild heart failure as well. She has some dementia and lives at the halfway they are not interested in pursuing aggressive interventions but I think there is some improvement and can be done by maximizing medical treatment. Discussed with hospitalist orders written Medical Records I reviewed the patient's medical records. Lab Data I reviewed the patient's lab results. 08/20/23 07:29 08/20/23 08:33 Radiology Impressions Chest X-Ray 08/20/23 07:50 Impression: 1. Increase in right pleural effusion. 2. Probable atelectasis and/or possible right mid lung pneumonia with elevation of the right diaphragm. 3. Atherosclerosis and cardiomegaly. Laboratory Results WBC 9.64 10^3/uL (3.29-11.43) 08/20/23 07:29 RBC 4.35 10^6/uL (3.85-5.65) 08/20/23 07:29 Hgb 12.30 g/dL (11.27-16.99) 08/20/23 07: Hct 38.0 % (36-47) 08/20/23 07: MCV 87.4 fl (85-98) 08/20/23 07: MCH 28.3 pg (27-33) 08/20/23 07: MCHC 32.4 g/dL (30-55) 08/20/23 07:29 RDW 12.5 % (12.1-15.1) 08/20/23 07:29 Plt Count 358 10^3/cmm (157-399) 08/20/23 07:29 MPV 12.8 fL (7.4-10.4) H 08/20/23 07:29 Neut % (Auto) 70.4 % 08/20/23 07: Lymph % (Auto) 16.2 % 08/20/23 07: [place] % (Auto) 8.7 % 08/20/23 07: Eos % (Auto) 3.2 % 08/20/23 07:29 Baso % (Auto) 1.0 % 08/20/23 07:29 Neut # (Auto) 6.78 10^3/uL (1.8-7.7) 08/20/23 07: Lymph # (Auto) 1.6 10^3/uL (0.8-4.8) 08/20/23 07:29 [place] # (Auto) 0.8 10^3/uL (0.2-0.9) 08/20/23 07:29 Eos # (Auto) 0.3 10^3/uL (0.0-0.8) 08/20/23 07:29 Baso # (Auto) 0.1 10^3/uL (0.0-0.1) 08/20/23 07:29 Nucleated RBC % (auto) 0 % 08/20/23 07: Nucleated RBCs # 0.0 /100WBC 08/20/23 07:29 Sodium 139 mmol/L (136-145) 08/20/23 08:33 Potassium 3.5 mmol/L (3.5-5.1) 08/20/23 08:33 Chloride 99 mmol/L (98-107) 08/20/23 08:33 Carbon Dioxide 19 mmol/L (22-29) L 08/20/23 08:33 Anion Gap 24.5 (5-19) H 08/20/23 08:33 BUN 25 mg/dL (8-23) H 08/20/23 08:33 Creatinine 0.8 mg/dL (0.5-0.9) 08/20/23 08:33 GFR Calculation Not Reportable 08/20/23 08:33 Glucose 122 mg/dL (65-115) H 08/20/23 08:33 Estimat Average Glucose 123 08/20/23 07:29 Hemoglobin A1c 5.9 % (4.0-6.0) 08/20/23 07:29 Calculated Osmolality 294 mOsm/kg (285-295) 08/20/23 08:33 Calcium 9.2 mg/dL (8.5-10.5) 08/20/23 08:33 Total Bilirubin 0.3 mg/dL (0.15-1.2) 08/20/23 08:33 AST 22 U/L (0-32) 08/20/23 08:33 ALT 13 U/L (0-33) 08/20/23 08:33 Alkaline Phosphatase 119 U/L (35-105) H 08/20/23 08:33 Troponin T Baseline 18 ng/L (0-10) H 08/20/23 08:33 Troponin T 120 Minute 19.55 ng/L (0-10) H 08/20/23 10:05 Delta Troponin T 1.55 ABS# (0-10) 08/20/23 10:05 NT-Pro-B Natriuret Pep 887 pg/mL (0-450) H 08/20/23 08:33 Total Protein 7.4 g/dL (6.6-8.7) 08/20/23 08:33 Albumin 3.3 g/dL (3.5-5.2) L 08/20/23 08:33 Globulin 4.1 g/dL (1.3-4.6) 08/20/23 08:33 Procalcitonin 0.18 ng/mL (0-0.5) 08/20/23 08:33 TSH 0.18 uIU/mL (0.27-4.20) L 08/20/23 08:33 All radiology interpretation(s) finalized by discharge Discharge Plan Discharge Patient Disposition: Placed in Observation Clinical Impression: Chest pain, ST segment depression, CHF (congestive heart failure) Condition: Stable Prescriptions: No Action hydroxyzine HCl 10 mg tablet 10 mg PO Q8H PRN (Reason: itching, anxiety) Qty: 30 2RF clonidine HCl 0.1 mg tablet 0.1 mg PO BID Qty: 60 5RF hydralazine 10 mg tablet 10 mg PO BID MDD 20 mg PRN (Reason: hypertension) Qty: 60 0RF Rx Instructions: BP above 160 systolic or 110 diastolic. Doses 6 hrs apart. pregabalin [Lyrica] 25 mg capsule 25 mg PO TID Qty: 90 5RF vitamin D3-folic acid 125 mcg (5,000 unit)-1 mg tablet 1 tab PO DAILY Qty: 30 2RF donepezil 10 mg tablet 10 mg PO BEDTIME sertraline 100 mg tablet 100 mg PO DAILY pantoprazole 40 mg tablet,delayed release (DR/EC) 40 mg PO DAILY oxybutynin chloride 5 mg tablet 5 mg PO TID memantine 5 mg tablet 5 mg PO BID metoprolol tartrate 25 mg tablet 25 mg PO BID@, ibuprofen 600 mg Tablet 600 mg PO Q6H PRN (Reason: Pain OR TEMP) trazodone 50 mg tablet 25 mg PO QPM furosemide [Lasix] 20 mg tablet 20 mg PO DAILY 7 Days Qty: 7 0RF acetaminophen [Tylenol] 325 mg Tablet 650 mg PO QID PRN (Reason: Pain) triamcinolone acetonide 0.025 % cream 1 applic TOPICAL DAILY PRN (Reason: Itching) ferrous sulfate 325 mg (65 mg iron) Tablet 325 mg PO DAILY docusate sodium 100 mg Tablet 100 mg PO BID amlodipine 10 mg tablet 10 mg PO DAILY Qty: 30 0RF hydrocodone-acetaminophen 5-325 mg tablet 1 tab PO Q8H PRN (Reason: Pain) Lomotil 2.5-0.025 mg Tablet 1 tab PO QID PRN (Reason: Diarrhea) Referrals: Jc Sánchez DO [Primary Care Provider] - Coding Level of Care Code ED Oil Well Service Unit Operator for Rashad Guzman
[2023-08-20 08:07] LABS: Basophils # 0.1 10^3/uL (0.0-0.1); Eosinophils # 0.3 10^3/uL (0.0-0.8); Eosinophils % 3.2 %; Lymphocytes # 1.6 10^3/uL (0.8-4.8); Lymphocytes % 16.2 %; Mean Corpuscular HGB Conc 32.4 g/dL (30-55); Mean Corpuscular Hemoglobin 28.3 pg (27-33); Mean Corpuscular Volume 87.4 fl (85-98); Mean Platelet Volume 12.8 fL (7.4-10.4); Monocytes # 0.8 10^3/uL (0.2-0.9); Monocytes % 8.7 %; Neutrophils # 6.78 10^3/uL (1.8-7.7); Neutrophils % 70.4 %; Nucleated Red Blood Cells % 0 %; Platelet Count 358 10^3/cmm (157-399); Red Blood Count 4.35 10^6/uL (3.85-5.65); Red Cell Distribution Width 12.5 % (12.1-15.1); White Blood Count 9.64 10^3/uL (3.29-11.43)
--- NOTE | 2023-08-20 08:08 | PC.PHAR ---
Addendum entered by Becka Garcia 08/20/23 08:27: PER JUANA-PT HAS NOT HAD ANY MEDICATIONS YET TODAY. PT HAS 3 MEDS: FUROSEMIDE 20MG, PREGABALIN 25MG, AND VITAMIN D3 5,000-NOT ON [place] MED LIST. VERIFIED VIA PHONE, PT IS TAKING THESE MAINTENANCE MEDICATIONS. 08/20/23 Original Note: PT IS FROM [facility]
[2023-08-20] MEDS: nitroglycerin 1 gm/inch oint Pkt 0.5 INCH TOPICAL (08:29)
[2023-08-20 09:06] LABS: Troponin(5th) Baseline 18 ng/L (0-10)
[2023-08-20 09:09] LABS: Alanine Aminotransferase 13 U/L (0-33); Albumin Level 3.3 g/dL (3.5-5.2); Alkaline Phosphatase 119 U/L (35-105); Anion Gap 24.5 (5-19); Aspartate Amino Transferase 22 U/L (0-32); Blood Urea Nitrogen 25 mg/dL (8-23); Calcium 9.2 mg/dL (8.5-10.5); Carbon Dioxide 19 mmol/L (22-29); Chloride 99 mmol/L (98-107); Creatinine Clr Calc Pharmacy 63.1913; Globulin 4.1 g/dL (1.3-4.6); Glucose 122 mg/dL (65-115); NT Pro B Type Natriuretic Pept 887 pg/mL (0-450); Osmolality Calculated 294 mOsm/kg (285-295); Potassium 3.5 mmol/L (3.5-5.1); Sodium 139 mmol/L (136-145); Total Bilirubin 0.3 mg/dL (0.15-1.2); Total Protein 7.4 g/dL (6.6-8.7)
--- NOTE | 2023-08-20 09:52 | ECG_ITS ---
[facility] Test Date: 2023-08-20 Pat Name: Sandy Jordan Department: Room: Gender: Female Back Panel Padder: : 1940 Requested By: Tee Anthony Order Number: [id number] Kings MD: Blake Payne M.D. Measurements Intervals [place] Rate: 98 P: 63 NH: 158 QRS: 54 QRSD: 99 T: -16 QT: 358 QTc: 458 Interpretive Statements SINUS RHYTHM ST DEVIATION AND MODERATE T-WAVE ABNORMALITY, CONSIDER INFERIOR ISCHEMIA [-0.1+ mV T-WAVE IN II/aVF] Compared to ECG 08/20/2023 07:53:09 No significant change Electronically Signed On 08-20-2023 10:08:37 CDT by Blake Payne M.D. [id number]
[2023-08-20] MEDS: FUROsemide 10 mg/mL SDV 4mL 40 MG IVP (10:19)
[2023-08-20 10:30] LABS: Troponin 5 2HR 19.55 ng/L (0-10); Troponin 5 2HR Delta 1.55 ABS# (0-10)
[2023-08-20] MEDS: HYDROcodone-acetaminophen 5-325 mg Tablet 1 TAB PO ×2 (10:39→15:49)
--- NOTE | 2023-08-20 12:08 | P.HP_ITS ---
Providers/Chief Complaint 2 Primary Care Provider: Jc Sánchez DO Chief Complaint: chest pain History of Present Illness Sandy Jordan is a 82 year old female history of A-fib, bleed, recurrent falls, not on anticoagulating agent, recurrent UTI, Proteus, dementia, hypertension, presented to the hospital with chief complaint of shortness of breath and chest pain. Patient has been dealing with hoarseness of voice, they are waiting to see Dr. Craig for evaluation and concern that is likely cancer but against any surgery or biopsy they do not want any workup for now. Patient is stating that she has been gradually getting worse, she is getting bedbound because of worsening of weakness and fatigue along pain, her p.o. intake has been very poor, she eats semisolid easy to chew food, no recent fever, hoarseness of voice has been present for quite some time, she is a resident of [facility], today she started becoming hypoxic with chest pain, by the time of my evaluation she is chest pain-free She describes the chest pain as substernal 10/12, not associated with nausea vomiting fever She was requiring 2 to 3 L of oxygen, at the time of evaluation she is saturating 91% on [address] depression, BNP is high X-ray consistent with pleural effusion Review of Systems 2 Const: Reports: chills Eyes: Denies: change in vision ENMT: Reports: odynophagia; Denies: throat pain Card: Reports: chest pain Resp: Reports: dyspnea GI: Denies: abdominal pain Medications/Allergies Home Medications Medication Instructions Recorded Confirmed Last Taken Type donepezil 10 mg tablet 10 mg PO BEDTIME 03/14/21 08/20/23 08/19/23 History memantine 5 mg tablet 5 mg PO BID 03/14/21 08/20/23 08/19/23 History metoprolol tartrate 25 mg tablet 25 mg PO BID@03/14/21 08/20/23 08/19/23 History oxybutynin chloride 5 mg tablet 5 mg PO TID 03/14/21 08/20/23 08/19/23 History pantoprazole 40 mg tablet,delayed 40 mg PO DAILY 03/14/21 08/20/23 08/19/23 History release sertraline 100 mg tablet 100 mg PO DAILY 03/14/21 08/20/2308/18/24 History hydroxyzine HCl 10 mg tablet 10 mg PO Q8H PRN itching, anxiety 07/21/21 08/20/23 Unknown Rx #30 tabs acetaminophen 325 mg tablet 650 mg PO QID PRN Pain 01/14/22 08/20/23 Unknown History (Tylenol) docusate sodium 100 mg tablet 100 mg PO BID 01/14/22 08/20/23 08/19/23 History ferrous sulfate 325 mg (65 mg 325 mg PO DAILY 01/14/22 08/20/23 08/19/23 History iron) tablet triamcinolone acetonide 0.025 % 1 applic topical DAILY PRN Itching 01/14/22 08/20/23 Unknown History topical cream amlodipine 10 mg tablet 10 mg PO DAILY #30 tabs 01/30/22 08/20/23 08/19/23 Rx clonidine HCl 0.1 mg tablet 0.1 mg PO BID #60 tabs 02/04/22 08/20/23 08/19/23 Rx hydralazine 10 mg tablet 10 mg PO BID PRN hypertension #60 02/04/22 08/20/23 Unknown Rx tabs pregabalin 25 mg capsule (Lyrica) 25 mg PO TID #90 caps 07/16/23 08/20/23 08/19/23 Rx vitamin D3 125 mcg (5,000 1 tab PO DAILY #30 tabs 07/23/23 08/20/23 08/19/23 Rx unit)-folic acid 1 mg tablet furosemide 20 mg tablet (Lasix) 20 mg PO DAILY 7 days #7 tabs 08/14/23 08/20/23 08/19/23 Rx ibuprofen 600 mg tablet 600 mg PO Q6H PRN Pain OR TEMP 08/14/23 08/20/23 Unknown History trazodone 50 mg tablet 25 mg PO QPM 08/14/23 08/20/23 08/19/23 History diphenoxylate-atropine 2.5 1 tab PO QID PRN Diarrhea 08/20/23 08/20/23 Unknown History mg-0.025 mg tablet (Lomotil) hydrocodone 5 mg-acetaminophen 325 1 tab PO Q8H PRN Pain 08/20/23 08/20/23 Unknown History mg tablet Allergies Allergy/AdvReac Type Severity Reaction Status Date / Time Penicillins Allergy rash Verified 08/14/23 10:29 PFSH Acute 2 PFSH: Medical History (Updated 08/20/23 @ 12:25 by Alban Mccloud MD) Malaise Overactive bladder C. difficile diarrhea Hyperlipidemia Fatigue Hypokalemia History of falling History of benzodiazepine use History of suicidal ideation History of narcotic use Chronic back pain Polymyalgia rheumatica History of GI bleed Osteoarthritis GERD (gastroesophageal reflux disease) Dementia Hypertension History of drug overdose Depression Surgical History (Updated 08/20/23 @ 12:25 by Alban Mccloud MD) Hx of tubal ligation History of abdominal surgery for gastric or duodenal ulcer History of breast biopsy History of hysterectomy Family History Mother Cancer Father Cancer Family/Other Dementia Daughter Diabetes Son Diabetes Lung disease Denies family history of CAD (coronary artery disease) Clotting disorder Chronic kidney disease (CKD) Suicide Anesthesia complication Bleeding disorder Stroke Social History Smoking and tobacco/nicotine status: never used tobacco/nicotine Alcohol intake: never Substance/Drug Use: never Lives independently: No Household members: family Female Reproductive History: Para: 3 Vitals/I&O/Wt Last Vital Signs Temp 98.2 F 08/20/23 07:55 Pulse 104 H 08/20/23 10:30 Resp 20 H 08/20/23 10:30 BP 162/95 08/20/23 10:30 Pulse Ox 90 08/20/23 10:30 O2 Del Method Nasal Cannula 08/20/23 10:30 O2 Flow Rate 2 08/20/23 10:30 Weight last 48 hrs Weight 85.275 kg Physical Exam 2 Narrative: Pleasant cooperative GCS 15 No active chest pain Currently on 2 L Laying supine Nonfocal neuroexam Able to comprehend all my questions Hard of hearing No active chest pain S1, S2 Saturating 91% on 2 L Abdomen soft Clinically does not look fluid overloaded Data 08/20/23 07:29 08/20/23 08:33 A&P Assessment and plan (1) ST segment depression: (2) Hypertension: Qualifiers: Hypertension type: primary hypertension Qualified Code(s): I10 - Essential (primary) hypertension (3) Mitral regurgitation: (4) Multiple thyroid nodules: (5) Laryngitis: (6) Dementia: Qualifiers: Dementia type: unspecified type Dementia behavioral disturbance: with behavioral disturbance Qualified Code(s): F03.91 - Unspecified dementia with behavioral disturbance (7) Lumbar radiculopathy, chronic: (8) Pleural effusion on right: (9) Lives in assisted living facility: (10) DNR (do not resuscitate): Plan Unstable angina Request echo Will give her therapeutic Lovenox Start ACS protocol Patient does not want angiogram if that is indicated for non-STEMI Troponin trending down No active chest pain at the time of evaluation Thyroid nodule patient not interested in diagnostic o biopsies Generalized weakness, poor p.o. intake, getting bedbound due to weakness and pain, DNR/DNI I will put her on mechanical soft diet Resident of [facility] Acute hypoxia related to worsening pleural effusion Currently on 2 L She has been given Lasix Clinically euvolemic however BNP is high X-ray shows concerning changes for possible pneumonia Start ceftriaxone and doxycycline DNR/DNI In case of further worsening recommended palliative care Mechanical soft diet Attestations 2 Medical Necessity Statement*: Anticipating discharge within [address] segment depression R94.31 Primary hypertension I10 Hypertension type: primary hypertension Mitral regurgitation I34.0 Multiple thyroid nodules E04.2 Laryngitis J04.0 Dementia with behavioral disturbance, unspecified dementia type F03.91 Dementia type: unspecified type Dementia behavioral disturbance: with behavioral disturbance Lumbar radiculopathy, chronic M54.16 Pleural effusion on right J90 Lives in assisted living facility Z59.3 DNR (do not resuscitate) Z66
[2023-08-20 12:34] LABS: Procalcitonin 0.18 ng/mL (0-0.5); Thyroid Stimulating Hormone 0.18 uIU/mL (0.27-4.20)
[2023-08-20 12:40] LABS: Estmated Average Glucose 123; Hemoglobin A1C 5.9 % (4.0-6.0)
--- NOTE | 2023-08-20 14:44 | ECG_ITS ---
[facility] Test Date: 2023-08-20 Pat Name: Sandy Jordan Department: Room: 111 Gender: Female Manufacturing Technologist: : 1940 Requested By: Tee Anthony Order Number: [id number] Kings MD: Sanjana Chun M.D. Measurements Intervals [place] Rate: 99 P: 0 TN: 0 QRS: 4 QRSD: 88 T: 26 QT: 360 QTc: 464 Interpretive Statements ATRIAL FIBRILLATION WITH ABERRANT CONDUCTION OR VENTRICULAR PREMATURE COMPLEXES MODERATE ST DEPRESSION [0.05+ mV ST DEPRESSION] Compared to ECG 08/20/2023 09:58:22 Ventricular premature complex(es) now present Aberrant conduction of supraventricular beat(s) now present ST (T wave) deviation now present Sinus rhythm no longer present T-wave abnormality no longer present Possible ischemia no longer present Electronically Signed On 08-21-2023 13:10:20 CDT by Sanjana Chun M.D. [id number]
[2023-08-20 15:06] LABS: Troponin 5 6HR 17.83 ng/L (0-10); Troponin 5 6HR Delta -0.17 ng/L (0-12)
[2023-08-20] MEDS: albuterol 2.5 mg/3 mL Neb INHALATION (15:18)
[2023-08-20] MEDS: clopidogrel 300 mg Tablet PO (15:49)
[2023-08-20] MEDS: pantoprazole DR 40 mg Tablet PO (15:50)
[2023-08-20] MEDS: atorvastatin 40 mg Tablet 80 MG PO (15:50)
[2023-08-20] MEDS: enoxaparin 80 mg/0.8 mL Syringe SUBCUT (15:50)
[2023-08-20] MEDS: amiodarone 150 MG/100 ML PREMIX 400 MG IV (16:30)
[2023-08-20] MEDS: acetaminophen 325 mg Tablet 650 MG PO (18:09)
[2023-08-20] MEDS: cloNIDine 0.1 mg Tablet 0.100000000000000006 MG PO (18:09)
[2023-08-20] MEDS: memantine 5 mg tablet PO (18:09)
[2023-08-20] MEDS: donepezil 5 MG Tablet 10 MG PO (20:56)
[2023-08-20] MEDS: metoprolol tartrate 25 mg Tablet PO (20:57)
[2023-08-21] VITALS (61 sets, daily range): BP systolic 119–191; BP diastolic 82–122; PULSE 83–117; RESP 17–34; TEMP 36.7–37; O2SAT 89–98
[2023-08-21] MEDS: enoxaparin 80 mg/0.8 mL Syringe SUBCUT ×2 (01:23→13:23)
[2023-08-21] MEDS: HYDROcodone-acetaminophen 5-325 mg Tablet 1 TAB PO (02:27)
[2023-08-21 06:18] LABS: Basophils # 0.1 10^3/uL (0.0-0.1); Basophils % 0.9 %; Eosinophils # 0.2 10^3/uL (0.0-0.8); Eosinophils % 2.1 %; Hematocrit 35.8 % (36-47); Lymphocytes # 1.3 10^3/uL (0.8-4.8); Lymphocytes % 13.9 %; Mean Corpuscular HGB Conc 31.3 g/dL (30-55); Mean Corpuscular Hemoglobin 28.5 pg (27-33); Mean Corpuscular Volume 91.1 fl (85-98); Mean Platelet Volume 11.6 fL (7.4-10.4); Monocytes # 0.8 10^3/uL (0.2-0.9); Monocytes % 8.5 %; Neutrophils # 7.11 10^3/uL (1.8-7.7); Neutrophils % 74.2 %; Nucleated Red Blood Cells % 0 %; Platelet Count 359 10^3/cmm (157-399); Red Blood Count 3.93 10^6/uL (3.85-5.65); Red Cell Distribution Width 12.3 % (12.1-15.1); White Blood Count 9.58 10^3/uL (3.29-11.43)
[2023-08-21 06:36] LABS: Alanine Aminotransferase 15 U/L (0-33); Albumin Level 3.1 g/dL (3.5-5.2); Alkaline Phosphatase 116 U/L (35-105); Anion Gap 20.9 (5-19); Aspartate Amino Transferase 29 U/L (0-32); Blood Urea Nitrogen 23 mg/dL (8-23); Calcium 8.5 mg/dL (8.5-10.5); Carbon Dioxide 21 mmol/L (22-29); Chloride 96 mmol/L (98-107); Creatinine Clr Calc Pharmacy 62.1043; Globulin 3.8 g/dL (1.3-4.6); Glucose 142 mg/dL (65-115); Magnesium 1.9 mg/dL (1.7-2.3); Osmolality Calculated 286 mOsm/kg (285-295); Sodium 135 mmol/L (136-145); Total Bilirubin 0.3 mg/dL (0.15-1.2); Total Protein 6.9 g/dL (6.6-8.7)
[2023-08-21 06:50] LABS: Potassium 2.9 mmol/L (3.5-5.1)
--- NOTE | 2023-08-21 08:01 | P.PN_ITS ---
Subjective 2 Subjective: Patient went to A-fib RVR amiodarone bolus was given started on amiodarone drip Difficult to swallow, currently she is not able to eat much Discontinue amiodarone and switch to p.o. regimen Add IV pain meds Patient not able to swallow much Request speech therapy As per the nursing staff she was able to swallow pills in applesauce Most likely she will need senior living instead of assisted living Vitals/I&O/Wt Last Vital Signs Temp 97.3 F L 08/20/23 15:54 Pulse 105 H 08/20/23 15:54 Resp 17 08/20/23 15:54 BP 151/80 08/20/23 15:54 Pulse Ox 91 08/20/23 15:54 O2 Del Method Nasal Cannula 08/20/23 15:54 O2 Flow Rate 2 08/20/23 15:18 08/20/23 08/20/23 08/20/23 06:59 14:59 22:59 Intake Total 340 / 340 Balance 340 / 340 Weight last 48 hrs Weight 80.286 kg Weight 85.275 kg Physical Exam 2 Narrative: A-fib without RVR Dysphagia is chronic Dehydrated No acute signs of heart failure On 3 L nasal cannula Abdomen soft Data 08/21/23 05:36 08/21/23 05:36 A&P Assessment and plan (1) CHF (congestive heart failure): (2) Chest pain: (3) ST segment depression: (4) DNR (do not resuscitate): (5) Atrial fibrillation with RVR: Plan SVT versus A-fib with RVR Heart rate in 80s Amiodarone drip started yesterday, changed to p.o. regimen Will switch to p.o. amiodarone today Start therapeutic anticoagulation ST depression Chest pain Currently on ACS protocol Echo requested Patient does not want angiogram Hypoxia related to worsening pleural effusion Continue moderate diuresis Thyroid nodule related dysphagia Requested speech therapy Patient not interested in getting biopsy Discussion regarding feeding tube/PEG tube will be made after speech therapy recommendations DNR/DNI Thyroid nodule with dysphagia which is chronic Mechanical soft diet Guarded prognosis History of dementia Will place Rausch catheter for comfort Attestations 2 Medical Necessity Statement*: continue medical management until Wednesday Diagnoses CHF (congestive heart failure) I50.[address] segment depression R94.31 DNR (do not resuscitate) Z66 Atrial fibrillation with RVR I48.91
--- NOTE | 2023-08-21 09:00 | PC.NURSE ---
D/t pt unable to swallow appropriately, MD instructed to only give po antihypertensives and hold off on giving other po medications until pt is seen by Speech therapy.
[2023-08-21] MEDS: amlodipine 10 mg Tablet PO (09:17)
[2023-08-21] MEDS: cloNIDine 0.1 mg Tablet 0.100000000000000006 MG PO (09:17)
[2023-08-21] MEDS: clopidogrel 75 mg Tablet PO (09:18)
[2023-08-21] MEDS: morphine 4 mg/mL SDV 1 mL 2 MG IVP ×4 (09:18→22:46)
[2023-08-21] MEDS: sertraline 100 mg Tablet PO (09:18)
[2023-08-21] MEDS: memantine 5 mg tablet PO (09:18)
[2023-08-21] MEDS: amiodarone 200 mg Tablet 400 MG PO (09:18)
[2023-08-21] MEDS: hyDRALAzine 20 mg/mL INJ 1 mL 5 MG IVP (09:19)
[2023-08-21] MEDS: lidocaine 1% 5 ML in potassium chloride premix 100 ML 26.25 ML IV (09:19)
[2023-08-21] MEDS: metoprolol tartrate 25 mg Tablet PO ×2 (09:21→22:40)
--- NOTE | 2023-08-21 10:47 | PC.SLP ---
Evaluation was attempted this morning. Patient was trying to take crushed medication with pureed food. Coughing was noted x2 and she was unable to complete task or participate in evaluation. She complained of pain and difficulty breathing and requested to rest. Plan to complete evaluation tomorrow as symptoms/level of alertness improve.
--- NOTE | 2023-08-21 11:10 | PC.PT ---
Spoke with nurse prior to attempting PT evaluation. He request to hold PT evaluation at this time as pt has been refusing most interventions and nursing has requested pt be put on comfort care. Pt just medicated for pain and had not participated with attempted ST evaluation just prior to PT attempt. Plan to check back on pt tomorrow.
--- NOTE | 2023-08-21 12:00 | USCV_ITS ---
Gentry Sandy Age: 82 Gender: F : 1940 Exam Date: 08/21/2023 08:47 Ordering Phys: Elisa Malone MD Technologist: Jose Enrique Dunbar [place]am Location[place] [facility] [place] Indication: nstemi, hf BP: 191 / 97 HR: Rhythm: Sinus Technical Quality: Adequate MEASUREMENTS (Male / Female) Normal Values 2D ECHO LV Diastolic Diameter PLAX 4.0 cm 4.2 - 5.9 / 3.9 - 5.3 cm IVS Diastolic Thickness 0.9 cm 0.6 - 1.0 / 0.6 - 0.9 cm IVS Systolic Thickness 1.4 cm LVPW Diastolic Thickness 1.0 cm 0.6 - 1.0 / 0.6 - 0.9 cm LVPW Systolic Thickness 1.2 cm LVOT Diameter 2.0 cm LV Ejection Fraction 2D Teich 78.0 % LA Diameter 3.0 cm Aorta at Sinotubular Diameter 2.3 cm M-MODE LA Ao Ratio MM 1.0 AV Cusp Separation MM 1.5 cm DOPPLER PV Peak Velocity 96.0 cm/s RV Ejection Time 0.2 s FINDINGS Left Ventricle Normal left ventricular size, systolic function and wall thickness, with no regional wall motion abnormalities. Left ventricular ejection fraction is estimated at 72 %. Right Ventricle Normal right ventricular size and systolic function. Right Atrium Normal right atrial size. Left Atrium Normal left atrial size. Mitral Valve Thickened mitral valve with mild mitral annular calcification. Aortic Valve Thickened aortic valve. Tricuspid Valve Tricuspid valve not well visualized. Pulmonic Valve Pulmonic valve not well visualized. Pericardium No pericardial effusion. Aorta Normal size aortic root and proximal ascending aorta. IVC Inferior vena cava not visualized. CONCLUSIONS Limited echo images due to patient's lack of cooperation for the test 1. Normal LV systolic function. Estimated LVEF 70%. 2. Valvular structures were not completely evaluated, however no apparent significant valvular abnormality noted Blake Payne MD (Electronically Signed) Final Date: 22 Aug 2023 14:32 S
[2023-08-21] MEDS: LORazepam 2 mg/mL INJ 1 mL 0.5 MG IVP ×2 (13:23→17:58)
[2023-08-22] VITALS (13 sets, daily range): BP systolic 113–157; BP diastolic 78–106; PULSE 101–112; RESP 16–26; TEMP 36.4–36.9; O2SAT 88–98
[2023-08-22] MEDS: enoxaparin 80 mg/0.8 mL Syringe SUBCUT (02:27)
[2023-08-22 03:27] LABS: Basophils # 0.1 10^3/uL (0.0-0.1); Basophils % 0.9 %; Eosinophils # 0.1 10^3/uL (0.0-0.8); Eosinophils % 0.4 %; Hematocrit 33.2 % (36-47); Lymphocytes # 1.4 10^3/uL (0.8-4.8); Lymphocytes % 11.7 %; Mean Corpuscular HGB Conc 31.6 g/dL (30-55); Mean Corpuscular Hemoglobin 28.5 pg (27-33); Mean Corpuscular Volume 90.2 fl (85-98); Mean Platelet Volume 11.6 fL (7.4-10.4); Monocytes # 1.2 10^3/uL (0.2-0.9); Monocytes % 9.9 %; Neutrophils # 8.94 10^3/uL (1.8-7.7); Neutrophils % 76.6 %; Nucleated Red Blood Cells % 0 %; Platelet Count 377 10^3/cmm (157-399); Red Blood Count 3.68 10^6/uL (3.85-5.65); Red Cell Distribution Width 12.6 % (12.1-15.1); White Blood Count 11.69 10^3/uL (3.29-11.43)
[2023-08-22 03:47] LABS: Anion Gap 20.9 (5-19); Blood Urea Nitrogen 27 mg/dL (8-23); Calcium 9.1 mg/dL (8.5-10.5); Carbon Dioxide 22 mmol/L (22-29); Chloride 102 mmol/L (98-107); Creatinine Clr Calc Pharmacy 41.4029; Glucose 139 mg/dL (65-115); Osmolality Calculated 299 mOsm/kg (285-295); Potassium 3.9 mmol/L (3.5-5.1); Sodium 141 mmol/L (136-145)
[2023-08-22] MEDS: morphine 4 mg/mL SDV 1 mL 2 MG IVP ×3 (06:17→19:42)
[2023-08-22] MEDS: amlodipine 10 mg Tablet PO (07:46)
[2023-08-22] MEDS: metoprolol tartrate 25 mg Tablet PO ×2 (07:46→19:42)
[2023-08-22] MEDS: aspirin 81 mg EC Tablet PO (07:46)
[2023-08-22] MEDS: amiodarone 200 mg Tablet 400 MG PO (07:46)
[2023-08-22] MEDS: cloNIDine 0.1 mg Tablet 0.100000000000000006 MG PO (07:46)
[2023-08-22] MEDS: clopidogrel 75 mg Tablet PO (07:46)
[2023-08-22] MEDS: atorvastatin 40 mg Tablet 80 MG PO (07:46)
[2023-08-22] MEDS: sertraline 100 mg Tablet PO (07:47)
[2023-08-22] MEDS: pantoprazole DR 40 mg Tablet PO (07:47)
[2023-08-22] MEDS: memantine 5 mg tablet PO (07:47)
--- NOTE | 2023-08-22 12:58 | P.PN_ITS ---
Subjective 2 Subjective: Patient is very dehydrated I do not think she will be able to eat anything through her mouth, she is choking on applesauce which we used for crushed meds Start discussion of PEG tube placement, patient is stating that she might be agreeable Dorsal ST depression on EKG, I did tell her that she would be considered very high risk for perioperative morbidity mortality Vitals/I&O/Wt Last Vital Signs Temp 97.6 F 08/22/23 12:51 Pulse 103 H 08/22/23 12:51 Resp 26 H 08/22/23 12:51 BP 152/87 08/22/23 12:51 Pulse Ox 89 L 08/22/23 12:51 O2 Del Method Room Air 08/22/23 09:16 O2 Flow Rate 2 08/20/23 15:18 08/21/23 08/22/23 08/22/23 22:59 06:59 14:59 Intake Total 200 / 468.088 100 / 568.088 Output Total 300 / 300 50 / 50 Balance 200 / 468.088 -200 / 268.088 -50 / -50 Weight last 48 hrs Weight 79.379 kg Weight 82.1 kg Weight 80.286 kg Physical Exam 2 Narrative: Patient is extremely dehydrated ST depressions noted on EKG No active chest pain She cannot swallow any food consistency for now Able to follow commands GCS 15 Abdomen soft Currently on room air Atrial flutter Urinary Catheter Management: Rausch: Cath Placed During This Visit: yes Reason for Continuing Indwelling Catheter: Acute Urinary Retention or Obstruction Urinary Catheter Date of Insertion: 08/21/23 Urinary Catheter Time of Insertion: 04:21 Data 08/22/23 03:18 08/22/23 03:18 A&P Assessment and plan (1) DNR (do not resuscitate): (2) CHF (congestive heart failure): (3) Hypertension: Qualifiers: Hypertension type: primary hypertension Qualified Code(s): I10 - Essential (primary) hypertension (4) ST segment depression: (5) Atrial fibrillation with RVR: (6) Laryngitis: (7) Dementia: Qualifiers: Dementia type: unspecified type Dementia behavioral disturbance: with behavioral disturbance Qualified Code(s): F03.91 - Unspecified dementia with behavioral disturbance (8) Lives in assisted living facility: (9) Thyroid nodule: (10) Dysphagia: Plan Significant dysphagia Thyroid nodule Speech therapy is awaiting I will start gentle fluid hydration A-fib without RVR Patient will be considered very high risk of perioperative morbidity and mortality In case she goes for PEG tube placement Patient and family do not want angiogram, did not want any investigation or intervention for thyroid nodule or non-STEMI She denies chest pain Afraid she will go into delirium w underlying Dementia Attestations 2 Medical Necessity Statement*: guarded prognosis Diagnoses DNR (do not resuscitate) Z66 CHF (congestive heart failure) I50.9 Primary hypertension I10 Hypertension type: primary hypertension ST segment depression R94.31 Atrial fibrillation with RVR I48.91 Laryngitis J04.0 Dementia with behavioral disturbance, unspecified dementia type F03.91 Dementia type: unspecified type Dementia behavioral disturbance: with behavioral disturbance Lives in assisted living facility Z59.3 Thyroid nodule E04.1 Dysphagia R13.10
[2023-08-22] MEDS: LORazepam 2 mg/mL INJ 1 mL 0.5 MG IVP ×2 (16:01→21:21)
[2023-08-23] VITALS (10 sets, daily range): BP systolic 119–131; BP diastolic 75–94; PULSE 92–116; RESP 21–36; TEMP 36.4–36.6; O2SAT 90–97
[2023-08-23] MEDS: morphine 4 mg/mL SDV 1 mL 2 MG IVP ×3 (02:03→11:23)
[2023-08-23] MEDS: enoxaparin 80 mg/0.8 mL Syringe SUBCUT (02:03)
[2023-08-23 05:00] LABS: Anion Gap 23.2 (5-19); Blood Urea Nitrogen 48 mg/dL (8-23); Calcium 8.8 mg/dL (8.5-10.5); Carbon Dioxide 23 mmol/L (22-29); Chloride 102 mmol/L (98-107); Creatinine Clr Calc Pharmacy 18.8224; Glucose 134 mg/dL (65-115); Osmolality Calculated 313 mOsm/kg (285-295); Potassium 4.2 mmol/L (3.5-5.1); Sodium 144 mmol/L (136-145)
[2023-08-23] MEDS: dextrose 5%-sod chloride 0.9% 1,000 ML 100 ML IV (06:54)
[2023-08-23] MEDS: albuterol 2.5 mg/3 mL Neb INHALATION (08:33)
--- NOTE | 2023-08-23 09:32 | PC.CHAP ---
Pastoral Care Encounter/Spiritual Assessment Type of Contact [] Declined caterers helper visit [] Patient/Family/Request visit [] Outpatient visit [] Follow-up visit [] Physician referral [] Code/Alert [x] Routine visit [] Staff referral [] Actively dying [] Patient sleeping [x] Family support [] [] Out of room [] Palliative care [] [] Receiving care in room [] Pre-surgical visit [] Trauma [] Long length of stay [] ICU visit [] Other: Relational/Emotional Strength [] Patient feels connected with others/family/visitors/staff [] Distress [] Loneliness/isolation [] Abandonment Spirituality of Patient [x] Person of [place] [] Attends Religious of their [place] [x] Believes in Prayer [] Reads Bible or Samaritan materials [] There are Spiritual issues to be addressed Incident Response Specialist Interventions [x] Prayer [x] Active listening [] Non-anxious presence [] Spiritual/emotional support [] Crisis/trauma care [] Spiritual counseling [] Bereavement support [] Provided bereavement packet [] Provided Bible/devotional materials [] Provided toy/stuffed animal, coloring book to patient or family member [] Provided Communion [] Anointing/Lindsay [] Salvation [x] Completed spiritual assessment [] Other: Impact on Illness or Injury [] Angry [] Fearful [] Anxious [] Often cries [] Exhaustion [] Unable to work [] Unable to attend mu-ism [] Unable to walk/stand [] Unable to read [] Unable to drive [] Unable to eat/drink [] Unable to sleep [] Unable to be with family [] Patient intubated [] Other: Summary Time spent with patient 5 min
--- NOTE | 2023-08-23 09:59 | PC.NURSE ---
Pt is restless and gasping for air during round check, pt oxygen is off her nose. She is pale, diaphoretic and hr-120s, spo2 is 82-84% w/o oxygen. pt has gurgling sound in her throat. nasal cannula applied back to nose on 3 L. suction set up. pt oxygen is up to 95% now on [address] gracia.
--- NOTE | 2023-08-23 11:06 | PC.PT ---
Physical Therapy evaluation attempted for 3rd day in row. PAtient refused evaluation. Son was not present at time of evaulation attempt.
[2023-08-23] MEDS: LORazepam 2 mg/mL INJ 1 mL 0.5 MG IVP (11:57)
--- NOTE | 2023-08-23 11:57 | P.DS_ITS ---
Discharge Providers Date of Admission: 08/21/23 13:06 Date of Discharge: August 23, 2023 Attending Provider at Admission: Elisa Malone MD Attending Provider at Discharge: Alban Mccloud MD Primary Care Provider: Jc Sánchez DO Diagnoses at Discharge Discharge Diagnosis (1) DNR (do not resuscitate): Status: Acute (2) CHF (congestive heart failure): Status: Acute (3) Hypertension: Status: Chronic Qualifiers: Hypertension type: primary hypertension Qualified Code(s): I10 - Essential (primary) hypertension (4) ST segment depression: Status: Acute (5) Atrial fibrillation with RVR: Status: Acute (6) Laryngitis: Status: Acute (7) Dementia: Status: Chronic Qualifiers: Dementia type: unspecified type Dementia behavioral disturbance: with behavioral disturbance Qualified Code(s): F03.91 - Unspecified dementia with behavioral disturbance (8) Lives in assisted living facility: Status: Chronic (9) Thyroid nodule: Status: Acute (10) Dysphagia: Status: Acute Reason for Visit Reason for Visit: chest pain Hospital Course Hospital Course 82-year-old female with history of thyroid nodule suspicious for cancer, resident of [facility] presented with chief complaint of fatigue and chest pain, she was diagnosed unstable angina with concerning changes of ST depression on EKG, echo did not show any remarkable changes patient and family were against any intervention such as angiogram, during hospitalization her hydration status worsened, she was not able to swallow anything, patient and family were not very enthusiastic about PEG tube placement or TPN, patient started getting worse complaining of pain, family meetings were conducted, daughter Kraig started hospice care in the hospital and [facility]. Physical Exam Narrative: Lethargic and fatigued Confused Dehydrated On 2 to 3 L of oxygen Urinary Catheter Management: Rausch: Cath Placed During This Visit: yes Reason for Continuing Indwelling Catheter: Acute Urinary Retention or Obstruction Urinary Catheter Date of Insertion: 08/21/23 Urinary Catheter Time of Insertion: 04:21 Discharge Data Studies Completed and Pending Completed Studies During Hospitalization Category Date Time Status XR chest 1V portable [id number] Stat Exams 08/20/23 07:50 Completed CV. echo complete* [id number] Stat Ultrasound 08/21/23 12:00 Completed Radiology Impressions Chest X-Ray 08/20/23 07:50 Impression: 1. Increase in right pleural effusion. 2. Probable atelectasis and/or possible right mid lung pneumonia with elevation of the right diaphragm. 3. Atherosclerosis and cardiomegaly. Laboratory Results WBC 11.69 10^3/uL (3.29-11.43) H 08/22/23 03:18 RBC 3.68 10^6/uL (3.85-5.65) L 08/22/23 03:18 Hgb 10.50 g/dL (11.27-16.99) L 08/22/23 03:18 Hct 33.2 % (36-47) L 08/22/23 03:18 MCV 90.2 fl (85-98) 08/22/23 03:18 MCH 28.5 pg (27-33) 08/22/23 03:18 MCHC 31.6 g/dL (30-55) 08/22/23 03:18 RDW 12.6 % (12.1-15.1) 08/22/23 03:18 Plt Count 377 10^3/cmm (157-399) 08/22/23 03:18 MPV 11.6 fL (7.4-10.4) H 08/22/23 03:18 Neut % (Auto) 76.6 % 08/22/23 03:18 Lymph % (Auto) 11.7 % 08/22/23 03:18 [place] % (Auto) 9.9 % 08/22/23 03:18 Eos % (Auto) 0.4 % 08/22/23 03:18 Baso % (Auto) 0.9 % 08/22/23 03:18 Neut # (Auto) 8.94 10^3/uL (1.8-7.7) H 08/22/23 03:18 Lymph # (Auto) 1.4 10^3/uL (0.8-4.8) 08/22/23 03:18 [place] # (Auto) 1.2 10^3/uL (0.2-0.9) H 08/22/23 03:18 Eos # (Auto) 0.1 10^3/uL (0.0-0.8) 08/22/23 03:18 Baso # (Auto) 0.1 10^3/uL (0.0-0.1) 08/22/23 03:18 Nucleated RBC % (auto) 0 % 08/22/23 03:18 Nucleated RBCs # 0.0 /100WBC 08/22/23 03:18 Sodium 144 mmol/L (136-145) 08/23/23 04:14 Potassium 4.2 mmol/L (3.5-5.1) 08/23/23 04:14 Chloride 102 mmol/L (98-107) 08/23/23 04:14 Carbon Dioxide 23 mmol/L (22-29) 08/23/23 04:14 Anion Gap 23.2 (5-19) H 08/23/23 04:14 BUN 48 mg/dL (8-23) H 08/23/23 04:14 Creatinine 2.6 mg/dL (0.5-0.9) H 08/23/23 04:14 GFR Calculation Not Reportable 08/23/23 04:14 Glucose 134 mg/dL (65-115) H 08/23/23 04:14 Estimat Average Glucose 123 08/20/23 07:29 Hemoglobin A1c 5.9 % (4.0-6.0) 08/20/23 07:29 Calculated Osmolality 313 mOsm/kg (285-295) H 08/23/23 04:14 Calcium 8.8 mg/dL (8.5-10.5) 08/23/23 04:14 Magnesium 2.0 mg/dL (1.7-2.3) 08/22/23 03:18 Total Bilirubin 0.3 mg/dL (0.15-1.2) 08/21/23 05:36 AST 29 U/L (0-32) 08/21/23 05:36 ALT 15 U/L (0-33) 08/21/23 05:36 Alkaline Phosphatase 116 U/L (35-105) H 08/21/23 05:36 Troponin T Baseline 18 ng/L (0-10) H 08/20/23 08:33 Troponin T 120 Minute 19.55 ng/L (0-10) H 08/20/23 10:05 Delta Troponin T 1.55 ABS# (0-10) 08/20/23 10:05 Troponin T Hi Sens 6Hr 17.83 ng/L (0-10) H 08/20/23 14:40 Troponin T Hi Sens 6Hr Delta -0.17 ng/L (0-12) L 08/20/23 14:40 NT-Pro-B Natriuret Pep 887 pg/mL (0-450) H 08/20/23 08:33 Total Protein 6.9 g/dL (6.6-8.7) 08/21/23 05:36 Albumin 3.1 g/dL (3.5-5.2) L 08/21/23 05:36 Globulin 3.8 g/dL (1.3-4.6) 08/21/23 05:36 Procalcitonin 0.18 ng/mL (0-0.5) 08/20/23 08:33 TSH 0.18 uIU/mL (0.27-4.20) L 08/20/23 08:33 Vitals Last Vital Signs Temp 97.5 F L 08/23/23 07:31 Pulse 112 H 08/23/23 08:31 Resp 23 H 08/23/23 11:23 BP 119/94 08/23/23 07:31 Pulse Ox 95 08/23/23 11:23 O2 Del Method Nasal Cannula 08/23/23 08:31 O2 Flow Rate 3 08/23/23 08:31 Discharge Plan Discharge Patient Disposition: Xfer SNF Condition: Stable Prescriptions: Discontinued hydroxyzine HCl 10 mg tablet 10 mg PO Q8H PRN (Reason: itching, anxiety) Qty: 30 2RF clonidine HCl 0.1 mg tablet 0.1 mg PO BID Qty: 60 5RF hydralazine 10 mg tablet 10 mg PO BID MDD 20 mg PRN (Reason: hypertension) Qty: 60 0RF Rx Instructions: BP above 160 systolic or 110 diastolic. Doses 6 hrs apart. pregabalin [Lyrica] 25 mg capsule 25 mg PO TID Qty: 90 5RF vitamin D3-folic acid 125 mcg (5,000 unit)-1 mg tablet 1 tab PO DAILY Qty: 30 2RF donepezil 10 mg tablet 10 mg PO BEDTIME sertraline 100 mg tablet 100 mg PO DAILY pantoprazole 40 mg tablet,delayed release (DR/EC) 40 mg PO DAILY oxybutynin chloride 5 mg tablet 5 mg PO TID memantine 5 mg tablet 5 mg PO BID metoprolol tartrate 25 mg tablet 25 mg PO BID@ ibuprofen 600 mg Tablet 600 mg PO Q6H PRN (Reason: Pain OR TEMP) trazodone 50 mg tablet 25 mg PO QPM furosemide [Lasix] 20 mg tablet 20 mg PO DAILY 7 Days Qty: 7 0RF acetaminophen [Tylenol] 325 mg Tablet 650 mg PO QID PRN (Reason: Pain) triamcinolone acetonide 0.025 % cream 1 applic TOPICAL DAILY PRN (Reason: Itching) ferrous sulfate 325 mg (65 mg iron) Tablet 325 mg PO DAILY docusate sodium 100 mg Tablet 100 mg PO BID amlodipine 10 mg tablet 10 mg PO DAILY Qty: 30 0RF hydrocodone-acetaminophen 5-325 mg tablet 1 tab PO Q8H PRN (Reason: Pain) Lomotil 2.5-0.025 mg Tablet 1 tab PO QID PRN (Reason: Diarrhea) Referrals: Jc Sánchez DO [Primary Care Provider] - Patient Instructions: Heart Failure (DC), CHF Stoplight Discharge Attestations Time Spent in Discharge Care*: greater than 30 min Quality Metrics Clinical Quality Measures [ No reported AMI, CVA or VTE this stay] Coding Level of Care Code Acute Code for Chg Fwd Diagnoses DNR (do not resuscitate) Z66 CHF (congestive heart failure) I50.9 Primary hypertension I10 Hypertension type: primary hypertension ST segment depression R94.31 Atrial fibrillation with RVR I48.91 Laryngitis J04.0 Dementia with behavioral disturbance, unspecified dementia type F03.91 Dementia type: unspecified type Dementia behavioral disturbance: with behavioral disturbance Lives in assisted living facility Z59.3 Thyroid nodule E04.1 Dysphagia R13.10
[2023-08-23] MEDS: atropine 1% op soln 2 mL Btl 3 DROP SUBLINGUAL ×2 (11:59→15:00)
--- NOTE | 2023-08-23 12:03 | PC.PT ---
No further attempts for PT to be completed
--- NOTE | 2023-08-23 13:36 | PC.SOCIAL ---
Pg 2 IMM Updated pt's daughter on IMM. No questions voiced. Provided pt a copy. Initialed, dated, & timed a copy & placed in chart.
[2023-08-23] MEDS: morphine 4 mg/mL SDV 1 mL IVP ×4 (14:44→16:57)
--- NOTE | 2023-08-23 15:09 | PC.NURSE ---
family at bedside This morning and afternoon. The Dgtr Rachelle understands that she wants her mother to be comfortable and in no pain. she understands about comfort care and the frequency of giving comfort care meds such as morphine and ativan might speed up the dying process but she will be pain free and more comfortable due to the sedation. Dgtr stated that, I just want her to be comfortable.
[2023-08-23] MEDS: LORazepam 2 mg/mL INJ 1 mL IVP ×2 (15:25→16:52)
--- NOTE | 2023-08-23 16:46 | PC.NURSE ---
notified tr Rachelle via phone that pt is getting closer to her and will not make it tonight. Pt is more restless, gasping for air and nurse has to give her morphine and ativan often to make her more comfortable.
--- NOTE | 2023-08-23 17:27 | P.PN_ITS ---
Vitals/I&O/Wt Last Vital Signs Temp 97.5 F L 08/23/23 07:31 Pulse 116 H 08/23/23 12:08 Resp 36 H 08/23/23 16:28 BP 131/86 08/23/23 12:08 Pulse Ox 96 08/23/23 14:44 O2 Del Method Nasal Cannula 08/23/23 12:08 O2 Flow Rate 3 08/23/23 12:08 08/23/23 08/23/23 08/23/23 06:59 14:59 22:59 Intake Total 1000 / 1000 Output Total 25 / 75 Balance -25 / -75 1000 / 1000 Weight last 48 hrs Weight 78.471 kg Weight 79.379 kg Physical Exam 2 Urinary Catheter Management: Rausch: Cath Placed During This Visit: yes Reason for Continuing Indwelling Catheter: Acute Urinary Retention or Obstruction Urinary Catheter Date of Insertion: 08/21/23 Urinary Catheter Time of Insertion: 04:21 Data 08/22/23 03:18 08/23/23 04:14 Coding Level of Care Code Acute Code for Chg Thomas
--- NOTE | 2023-08-23 17:43 | PC.NURSE ---
pt with nursing at bedside Time of 1726pm- dgtr Rachelle notified via phone. left a voicemail to her phone. Notified hospitalist of time of and notified powerhouse mechanic apprentice. post mortem care provided to pt.
--- NOTE | 2023-08-23 18:08 | PC.NURSE ---
MTS notified of patient passing. Patient has been released by [facility] and [facility] at this time.
--- NOTE | 2023-08-23 19:06 | PC.NURSE ---
family at bedside [facility].
--- NOTE | 2023-08-23 21:56 | PC.NURSE ---
body picked up by Julian from [facility] at 2129, no personal belongings in room
== END 2023-08-23 21:30 | disposition expired | DRG 311 ==
LOC: ER 12:56 → CSU 13:25
PROVIDERS: Admitting Provider Internal Medicine; Emergency Provider Family Medicine; PCP Family Medicine; Visit Provider Internal Medicine
DX: I20.0 Unstable angina (principal); F03.918 Unspecified dementia, unspecified severity, with other behavioral disturbance; J90 Pleural effusion, not elsewhere classified; R94.31 Abnormal electrocardiogram [ECG] [EKG]; R09.02 Hypoxemia; J04.0 Acute laryngitis; E78.5 Hyperlipidemia, unspecified; M35.3 Polymyalgia rheumatica; M19.90 Unspecified osteoarthritis, unspecified site; K21.9 Gastro-esophageal reflux disease without esophagitis; I50.9 Heart failure, unspecified; I11.0 Hypertensive heart disease with heart failure; I48.91 Unspecified atrial fibrillation; I34.0 Nonrheumatic mitral (valve) insufficiency; E04.2 Nontoxic multinodular goiter; M54.16 Radiculopathy, lumbar region; Z66 Do not resuscitate; Z51.5 Encounter for palliative care; R13.10 Dysphagia, unspecified; Z53.8 Procedure and treatment not carried out for other reasons; E86.0 Dehydration
CPT/HCPCS: 36415; 51702; 71045; 80048; 80053; 83036; 83735; 83880; 84145; 84443; 84484; 85025; 92610; 93005; 93306; 94640; 94664; 96365; 96372; 96375; 96376; 97166; 99285; A4222; G0378; J0283; J0360; J1650; J1940; J2060; J2270; J3480; J7042; J7613